=== PATIENT | male | born 1950 | race Caucasian/White ===

== ENCOUNTER → 2016-11-15 | Outpatient (CLI) | payer OTHER ==
[~2016-11-15] MED LIST: ASPI81TA28 PO; BRIM0.2S OPB; DICL50TA3 PO; IMDSR/30 PO; NTRGSL/4 UT; PRLSR20 PO; SIMV80TA2 PO
[2016-11-15 13:20] LABS: BASO % 0.1 %; BASO ABS # 0.02 K/uL (0-0.2); COMPLETE YES; EOS % 0.1 %; HEMATOCRIT 42.2 % (42-52); IG% 0.3 %; LYMPH % 4.8 %; LYMPH ABS # 0.65 K/uL (1.2-3.4); MEAN CELL VOLUME 95.5 fL (80-100); MEAN CORPUSCULAR HEMOGLOBIN 33.3 pg (25-34); MEAN CORPUSCULAR HGB CONC 34.8 g/dl (32-36); MEAN PLATELET VOLUME 11.3 fL (7.4-10.4); MONO % 4.8 %; NEUT % 89.9 %; PLATELET COUNT 226 K/uL (130-400); RED BLOOD COUNT 4.42 M/uL (4.7-6.1); WHITE BLOOD COUNT 13.43 K/uL (4.8-10.8)
[2016-11-15 13:25] LABS: BLOOD UREA NITROGEN 29 mg/dl (7-18); BUN/CREATININE RATIO 19.2 (10-20); CARBON DIOXIDE 24 mmol/L (21-32); CHLORIDE 100 mmol/L (98-107); GLUCOSE 113 mg/dl (70-99); POTASSIUM 3.5 mmol/L (3.5-5.1); SODIUM 135 mmol/L (136-145)
[2016-11-15 13:25] LABS: URINE APPEARANCE CLEAR (CLEAR); URINE COLOR ORANGE; URINE EPITHELIAL CELL AUTO >30 /lpf (0-5); URINE NITRITE POS (NEG); URINE SPECIFIC GRAVITY 1.026 (1.000-1.030); UROBILINOGEN NEG (NEG)
[2016-11-15 13:26] LABS: MANUAL MICROSCOPIC REQUIRED? NO; REVIEW REQ? YES
[2016-11-15 13:28] LABS: URINE BILIRUBIN NEG (NEG)
== END | disposition home or self-care (01) ==
LOC: C.LABPVFM 09:50
PROVIDERS: ATTEND Family Medicine
DX: K92.1 Melena (principal); R10.9 Unspecified abdominal pain

== ENCOUNTER → 2016-11-21 | Outpatient (CLI) | payer OTHER | END | disposition home or self-care (01) | LOC: C.LABPVFM 08:36 | PROVIDERS: ATTEND Family Medicine | DX: K92.1 Melena (principal); R10.9 Unspecified abdominal pain ==

== ENCOUNTER → 2017-01-12 | Outpatient (CLI) | payer OTHER ==
[2017-01-12 17:55] LABS: BLOOD UREA NITROGEN 23 mg/dl (7-18); BUN/CREATININE RATIO 23.1 (10-20); CALCIUM 8.7 mg/dl (8.5-10.1); CARBON DIOXIDE 25 mmol/L (21-32); CHLORIDE 107 mmol/L (98-107); GLUCOSE 93 mg/dl (70-99); POTASSIUM 4.2 mmol/L (3.5-5.1); SODIUM 141 mmol/L (136-145)
== END | disposition home or self-care (01) ==
LOC: C.LABPVFM 11:54
PROVIDERS: ATTEND Family Medicine
DX: R79.89 Other specified abnormal findings of blood chemistry (principal)

== ENCOUNTER → 2017-11-17 | Outpatient (CLI) | payer OTHER ==
[2017-11-17 12:31] LABS: BASO % 0.8 %; BASO ABS # 0.06 K/uL (0-0.2); EOS % 6.9 %; EOS ABS # 0.54 K/uL (0-0.5); HEMATOCRIT 45.4 % (42-52); HEMOGLOBIN 15.5 g/dL (14.0-18.0); IG# 0.01 K/uL (0.00-0.02); LYMPH % 21.8 %; LYMPH ABS # 1.72 K/uL (1.2-3.4); MEAN CELL VOLUME 98.5 fL (80-100); MEAN CORPUSCULAR HEMOGLOBIN 33.6 pg (25-34); MEAN CORPUSCULAR HGB CONC 34.1 g/dl (32-36); MEAN PLATELET VOLUME 10.5 fL (7.4-10.4); MONO ABS # 0.79 K/uL (0.11-0.59); NEUT % 60.4 %; NEUT ABS # 4.76 K/uL (1.4-6.5); PLATELET COUNT 235 K/uL (130-400); RED CELL DISTRIBUTION WIDTH CV 15.6 % (11.5-14.5); RED CELL DISTRIBUTION WIDTH SD 56.4 fL (36.4-46.3); WHITE BLOOD COUNT 7.88 K/uL (4.8-10.8)
[2017-11-17 16:20] LABS: ALBUMIN 3.9 gm/dl (3.4-5.0); ALT/SGPT 27 U/L (12-78); BLOOD UREA NITROGEN 23 mg/dl (7-18); CARBON DIOXIDE 28 mmol/L (21-32); CHOLESTEROL 124 mg/dl (0-200); CREATININE 1.09 mg/dl (0.60-1.40); GLUCOSE 107 mg/dl (70-99); POTASSIUM 4.6 mmol/L (3.5-5.1); SODIUM 138 mmol/L (136-145)
[2017-11-17 16:24] LABS: ALKALINE PHOSPHATASE 63 U/L (45-117); AST/SGOT 21 U/L (15-37); LDL CHOLESTEROL CALCULATED 58 mg/dl; TOTAL PROTEIN 7.4 gm/dl (6.4-8.2)
== END | disposition home or self-care (01) ==
LOC: C.LABPVFM 09:47
PROVIDERS: ATTEND Family Medicine
DX: D72.829 Elevated white blood cell count, unspecified (principal); Z72.0 Tobacco use; N20.0 Calculus of kidney; I25.10 Atherosclerotic heart disease of native coronary artery without angina pectoris; K21.9 Gastro-esophageal reflux disease without esophagitis; N39.0 Urinary tract infection, site not specified; R79.89 Other specified abnormal findings of blood chemistry

== ENCOUNTER → 2018-03-16 | Outpatient (CLI) | payer OTHER ==
[~2018-03-16] MED LIST changes: +OPTIRAY 320 IV PRN
--- NOTE | 2018-03-16 08:55 | DIAGNOSTIC IMAGING REPORT ---
CT (CHEST) THORAX WITH CLINICAL HISTORY: 68 years-old Male presenting with PAD, concern for right subclavian stenosis. TECHNIQUE: Multidetector CT imaging of the chest was performed without the use of intravenous contrast. IV contrast: 90 mL of Optiray 320. A dose lowering technique was used consistent with the principles of ALARA (as low as reasonably achievable). COMPARISON: None. CT DOSE (mGy.cm): The estimated cumulative dose is 378.51 mGycm. FINDINGS: Or Scrub Tech topogram: Unremarkable. On soft tissue windows, 10 mm hypodense nodule in the right lobe of thyroid. Few subcentimeter prominent precarinal lymph nodes likely reactive. Few prominent bilateral hilar lymph nodes, right greater than left. Atherosclerosis of the aorta. Three-vessel aortic arch with patent branch vessels. Specifically, the innominate and right subclavian arteries are patent. Normal heart size. Coronary artery calcification. No pericardial or pleural effusion. Hyperenhancing focus in the left hepatic lobe likely flash filling hemangioma. Prominent lobulations of the kidneys. On lung windows, mild apical predominant centrilobular emphysema. Lungs are hyperinflated. Pleural parenchymal scarring noted at the apices. Faint multifocal groundglass opacity in the posterior segment of the right upper lobe, which is primarily peribronchovascular. Mild bronchial wall thickening. Layering debris in the trachea. On bone windows, old fracture deformity of the posterior right 11th rib. IMPRESSION: 1. No evidence of right subclavian artery stenosis with the current arm positioning. Mild atherosclerosis without significant luminal narrowing. If there is clinical concern for thoracic outlet syndrome, a dedicated ultrasound examination with pulse volume recording to evaluate for this diagnosis could be obtained, which would include dynamic imaging with provocative maneuvers. 2. Emphysema and bronchial wall thickening, indicating smoking related lung injury. 3. Faint multifocal groundglass opacities in a peribronchovascular distribution in the posterior segment of the right upper lobe. This could relate represent atypical appearing respiratory bronchiolitis although a developing infection is difficult to exclude. Absence of symptoms, consider follow-up chest CT in 3 months. Electronically signed by: Tr Eldridge M.D. 03/16/2018 8:54 AM Dictated Date/Time: 03/16/2018 8:45 AM
== END | disposition home or self-care (01) ==
LOC: C.CTS 08:11
PROVIDERS: ATTEND Internal Medicine Interventional Cardiology
DX: I73.9 Peripheral vascular disease, unspecified (principal)

== ENCOUNTER 2021-02-12 05:55 | Inpatient (IN) ==
--- NOTE | 2021-01-29 10:50 | PAT Medication Instructions ---
Medication Instructions Date of Service January 29, 2021 Home Medications Medication Instructions Recorded isosorbide mononitrate 30 mg 30 mg PO DAILY #90 tab 03/16/20 tablet,extended release 24 hr omeprazole 40 mg capsule,delayed 40 mg PO DAILY #90 cap 11/23/20 release lorazepam 0.5 mg tablet 0.5 mg PO DAILY PRN #14 tab 11/27/20 diclofenac sodium 50 mg 50 mg PO BID #180 tab 12/17/20 tablet,delayed release simvastatin 80 mg tablet 80 mg PO DAILY #90 tab 12/17/20 ferrous sulfate 142 mg (45 mg iron) tablet,extended release 142 mg PO QAM aspirin 81 mg tablet 81 mg PO QAM nitroglycerin 0.4 mg sublingual tablet 0.4 mg SL Q5M PRN isosorbide mononitrate 30 mg tablet,extended release 24 hr 30 mg PO DAILY omeprazole 40 mg capsule,delayed release 40 mg PO DAILY lorazepam 0.5 mg tablet 0.5 mg PO DAILY PRN diclofenac sodium 50 mg tablet,delayed release 50 mg PO BID simvastatin 80 mg tablet 80 mg PO DAILY oxycodone-acetaminophen 5 mg-325 mg tablet 1 tab PO QID PRN Continue as directed nitroglycerin 0.4 mg sublingual tablet 0.4 mg SL Q5M PRN ASK your surgeon for instructions aspirin 81 mg tablet 81 mg PO QAM diclofenac sodium 50 mg tablet,delayed release 50 mg PO BID DO NOT take the morning of surgery ferrous sulfate 142 mg (45 mg iron) tablet,extended release 142 mg PO QAM Take morning of surgery With a small sip of water, OTHERWISE NOTHING TO EAT OR DRINK AFTER MIDNIGHT: isosorbide mononitrate 30 mg tablet,extended release 24 hr 30 mg PO DAILY omeprazole 40 mg capsule,delayed release 40 mg PO DAILY lorazepam 0.5 mg tablet 0.5 mg PO DAILY PRN (if needed) oxycodone-acetaminophen 5 mg-325 mg tablet 1 tab PO QID PRN (if needed, may be taken up to four hours before surgery) simvastatin 80 mg tablet 80 mg PO DAILY *Meds listed as DAILY are assumed to be taken in the morning. If this is incorrect, please take at your normally scheduled time and do not take and extra morning dose. Take evening before surgery lorazepam 0.5 mg tablet 0.5 mg PO DAILY PRN (if needed) oxycodone-acetaminophen 5 mg-325 mg tablet 1 tab PO QID PRN (if needed) Other Notes If you have any questions please call us at [phone] or [phone] or [phone] or [phone]
--- NOTE | 2021-01-30 09:57 | Anesthesiology Consultation ---
Date of Service January 30, 2021 Assessment & Plan (1) Encounter for pre-operative examination: Chart Review Chart Review: Pending: Refer to Additional Notes / Consult section (pending surgeon ordered cardio clearance 02/06, possible vascular note, and preop Covid testing ) and Patient seen in Pre Admission Testing Awaiting surgeon ordered cardio clearance scheduled 02/06/21. Will also attempt to get most recent vascular note. Per PAT appt on 01/30/21, patient denies any out of state travel. No known Covid positive contacts or Covid related symptoms. No known Covid test in the past 90 days. Educated patient to follow up with surgeon's office regarding Covid testing. Educated on importance of self quarantining, social distancing and wearing mask in public both for the patient and household contacts. Per PCP office visit 11/27/20= pt presents for routine follow up and [facility] visit. PAD- stable- follows with vascular. Hyperlipidemia- continue statin/stable. GERD- stable- stable. Chronic low back pain- takes Diclofenac. CAD- stable. Addendum to PCP note on 01/28/21= "Pt is medically optimized ("cleared") for their upcoming procedure. Pt is having a preop visit with cardio coming up as well." Teaching & Discussion Pre-Anesthesia Teaching/Discussion Notes: Instructed NPO after midnight before surgery,except medications with 15 cc of water. Medication instructions provided according to the PAT guidelines. History Surgery Operation Date: 02/12/21 08:50 Proposed Procedures p Laparoscopic Robotic Assisted Radical Retropubic Prostatectomy, Possible Open Possible Pelvic Lymphnode Dissection, Possible Suprapubic Tube Placment - Miko Valderrama MD Height/Weight Height: 5 ft 10 in Weight: 60.7 kg Allergies Allergy/AdvReac Type Severity Reaction Status Date / Time Sulfa (Sulfonamide Allergy Intermediate RASH/HIVES Verified 01/29/21 09:22 Antibiotics) codeine AdvReac Mild UPSETS Verified 01/29/21 09:22 STOMACH - NAUSEA wool AdvReac Mild ITCHING Verified 01/29/21 09:22 Medications Home Medications Medication Instructions Recorded Confirmed Last Taken ferrous sulfate 142 mg (45 mg 142 mg PO QAM tab 05/14/19 01/29/21 08/02/20 05:30 iron) tablet,extended release aspirin 81 mg tablet 81 mg PO QAM tab 09/27/19 01/29/21 08/03/20 04:30 nitroglycerin 0.4 mg sublingual 0.4 mg SL Q5M PRN #25 tab 09/27/19 01/29/21 Unknown tablet isosorbide mononitrate 30 mg 30 mg PO DAILY #90 tab 03/16/20 01/29/21 08/03/20 04:30 tablet,extended release 24 hr omeprazole 40 mg capsule,delayed 40 mg PO DAILY #90 cap 11/23/20 01/29/21 Unknown release lorazepam 0.5 mg tablet 0.5 mg PO DAILY PRN #14 tab 11/27/20 01/29/21 Unknown diclofenac sodium 50 mg 50 mg PO BID #180 tab 12/17/20 01/29/21 Unknown tablet,delayed release simvastatin 80 mg tablet 80 mg PO DAILY #90 tab 12/17/20 01/29/21 Unknown oxycodone-acetaminophen 5 mg-325 1 tab PO QID PRN 01/23/21 01/29/21 Unknown mg tablet Past Medical History Medical History AAA (abdominal aortic aneurysm) S/p bypass around 2001 CAD (coronary artery disease) Moderate RCA disease per 2013 cardiac cath GERD (gastroesophageal reflux disease) Well controlled and stable History of depression History of kidney stones No current issues History of melanoma S/p Mohns surgery Hx of glaucoma No current issues - follows with eye doctor Hyperlipidemia Hypertension PAD (peripheral artery disease) Aorta to right femoral and left external iliac bypass S/p stenting of left external iliac artery in the past Left external iliac artery angioplasty 08/03/20 Known severe bilateral SFA disease--[place] class 2-3 claudication symptoms, moderate arterial insufficiency by ADRIENNE; followed by Dr. Proctor Prostate cancer Spinal stenosis Chronic low back pain Exercise / Class Metabolic Activity II 4-5 Yardwork/Stairs/Walk up hill (one flight of stairs - no chest pain or SOB ) Past Family History Family History Family/Other Cancer Father Diabetes Cancer Brain tumor Hypertension Daughter No problems noted. Mother Lupus Albino Other No family history of adverse response to anesthesia Denies family history of Ovarian cancer Prostate cancer Crohn's disease Myocardial infarction Breast cancer Colorectal cancer Past Surgical History Surgical History (Updated 01/30/21 @ 15:51 by Mercy Bernal PA-C) H/O prostate biopsy H/O vascular surgery Left External Iliac Artery Angioplasty History of abdominal aortic aneurysm repair Aorta to right femoral and left external iliac bypass 15 YEAR AGO AT [facility] History of cataract surgery RT/LEFT History of colonoscopy History of cystoscopy For urethral stricture History of Mohs micrographic surgery for skin cancer FACIAL AREA History of surgical procedure on eye proper using laser RT/LEFT (TO TREAT GLAUCOMA) History of tooth extraction S/P insertion of iliac artery stent ? 10 YEARS AGO AT [place] Past Anesthesia History No Hx of Anesthesia Complications and No Family Hx of Anesthesia Complications History of PONV No Hx of PONV and No Hx of Motion Sickness Social History Smoking Status: Current every day smoker tobacco type: cigarettes Smoking cigarettes per day: 10 CIG DAILY Do You Dip or Chew Tobacco: No Hx Alcohol Use: Yes Alcohol type: beer alcohol intake frequency: a few times a week Hx Substance Use: Yes substance use type: marijuana Last Used Substance Other:: 1 MONTH AGO (LAST USED>ADVISED) Review of Systems Patient denies chest pain, shortness of breath, dyspnea on exertion, cough, wheezing, palpitations. No hx of seizures, stroke, MT, apnea/snoring. No hx of blood clots or blood transfusions Physical Exam Vital Signs VITALS BP 131/81 P 71 TEMP 98.1 SP02 96% RESP 16 Constitutional no acute distress ENMT Mouth: no TMJ clicking Thyromental Distance: > or= 3.5 Finger Breadths (4.0) Mallampati Class: I Full dentures top and bottom Neck neck extension not limited Respiratory normal respiratory effort; no respiratory distress Auscultation: lungs clear to auscultation bilaterally; no wheezes Cardiovascular Rate/Rhythm: regular rate and regular rhythm Heart Sounds: no murmur Vessels: no carotid bruit Musculoskeletal Spine: no pain with cervical ROM Extremities: extremities normal to inspection Psychiatric Orientation: alert Testing Laboratory Results 01/30/21 10:22 01/30/21 10:22 Blood Type O Positive 01/30/21 10:22 Antibody Screen NEGATIVE 01/30/21 10:22 Electrocardiogram Date: 01/30/21 Sinus rhythm with sinus arrhythmia with first-degree block at 63 bpm. Otherwise normal EKG. Compared to EKG from 2/19/2014no significant changes found per cardio. Chest X-Ray Date: 01/30/21 Findings: + NAD FINDINGS: The lungs remain hyperexpanded with apical predominant emphysematous changes. The heart is normal in size. No pleural effusions. No pneumothorax. No focal lung consolidations to suggest pneumonia. No evidence for pulmonary edema. IMPRESSION: No significant change compared to the prior study. No acute process. Emphysema. Stress Test Date: 07/19/20 Type: nuclear No significant ischemia suggested on myocardial perfusion imaging. Small distal anteroseptal fixed defect may represent artifact given normal wall motion, but cannot exclude infarct. Normal LV systolic function and wall motion. EF 69%. Nondiagnostic Lexiscan ECG. Other Testing Chest CT 12/19/20= Pulmonary emphysema. Mucous debris within the trachea the level the gil. New 2 mm right upper lobe pulmonary nodule. Persistent subtle ground glass attenuation and micronodularity within the right upper lobe lung likely postinflammatory. No suspicious pulmonary findings. Aorta with Runoff CTA 01/25/20= Redemonstration of the aortobiiliac stent graft repair of an abdominal aortic aneurysm. No evidence for endoleak. The aneurysm sac is stable in size measuring up to 2.3 cm in diameter. Focal occlusion within the bilateral mid to distal superficial femoral arteries with distal reconstitution. Focal high-grade stenosis at the proximal left anterior tibial artery. Suggestion of a three-vessel runoff within the right lower extremity. Bilateral nephrolithiasis. 1 cm hypervascular focus within the left hepatic lobe. This remains stable and favors a flash filling hemangioma.
--- NOTE | 2021-01-30 11:08 | XRay Report ---
XR chest Pre-admission PA/Lat HISTORY: Preop. COMPARISON: Chest 11/29/2013. FINDINGS: The lungs remain hyperexpanded with apical predominant emphysematous changes. The heart is normal in size. No pleural effusions. No pneumothorax. No focal lung consolidations to suggest pneumo pascual. No evidence for pulmonary edema. IMPRESSION: No significant change compared to the prior study. No acute process. Emphysema. ACT 112: Negative or not required by law. Electronically signed by: Tomas Wang M.D. 01/30/2021 11:07 AM
[2021-01-30 11:43] LABS: Basophils # (auto) 0.02 K/uL (0-0.2); Basophils % (auto) 0.3 %; Eosinophils # (auto) 0.13 K/uL (0-0.5); Eosinophils % (auto) 2.2 %; Hematocrit (blood only) 43.6 % (42-52); Hemoglobin 14.7 g/dL (14.0-18.0); Immature Granulocytes # (auto) 0.02 K/uL (0.00-0.02); Immature Granulocytes % (auto) 0.3 %; Lymphocytes % (auto) 19.9 %; Mean Corpuscular Hemoglobin 33.5 pg (25-34); Mean Corpuscular Hgb Conc 33.7 g/dL (32-36); Mean Corpuscular Volume 99.3 fL (80-100); Mean Platelet Volume 10.3 fL (7.4-10.4); Monocytes % (auto) 8.3 %; Neutrophils # (auto) 4.17 K/uL (1.4-6.5); Platelet Count 203 K/uL (130-400); RDW Coefficient of Variation 15.4 % (11.5-14.5); RDW Standard Deviation 56.6 fL (36.4-46.3); Red Blood Count 4.39 M/uL (4.7-6.1); White Blood Count 6.04 K/uL (4.8-10.8)
[2021-01-30 12:49] LABS: Calcium 8.9 mg/dl (8.5-10.1); Creatinine Clr Calc Pharmacy 62.1 ml/min; Est GFR (African American) 96.6; Est GFR (Non-African American) 83.3; Potassium 4.6 mmol/L (3.5-5.1)
--- NOTE | 2021-01-30 13:52 | Electrocardiogram Report ---
Test Reason : Blood Pressure : / mmHG Vent. Rate : 063 BPM Atrial Rate : 063 BPM P-R Int : 212 ms QRS Dur : 090 ms QT Int : 380 ms P-R-T Axes : 084 087 081 degrees QTc Int : 388 ms Sinus rhythm with sinus arrhythmia with 1st degree A-V block Otherwise normal ECG When compared with ECG of 27-APR-2014 08:38, No significant change was found Confirmed by Johnnie Cuevas ([id number]) on 01/30/2021 1:51:45 PM Referred By: Miko Valderrama Confirmed By:Kash Cuevas
[2021-02-12] MEDS ORDERED: LR 15ML/HR IV SCH ×2 (06:00)
[2021-02-12] MEDS ORDERED: HEPARIN SOD 5,000 UNIT/0.5 ML VIAL SQ SCH (06:00)
[2021-02-12] MEDS ORDERED: HYDROmorphone INJ 1 MG/ML SYRINGE IV PRN (06:38)
[2021-02-12] MEDS ORDERED: ePHEDrine sulfate 50 MG/ML AMP IV PRN (06:38)
[2021-02-12] MEDS ORDERED: ATROPINE SULFATE 0.1 MG/ML 10ML SYR IV PRN (06:38)
[2021-02-12] MEDS ORDERED: ONDANSETRON INJ 2 MG/ML 2 ML VIAL IV PRN (06:38)
[2021-02-12] MEDS ORDERED: ONDANSETRON INJ 2 MG/ML 2 ML VIAL ONE (06:41)
[2021-02-12] MEDS ORDERED: ROCURONIUM BROMIDE 10 MG/ML 5 ML VIAL IV ONE ×5 (06:41→10:25)
[2021-02-12] MEDS ORDERED: PROPOFOL IV EMULSION 10 MG/ML 20 ML VIAL IV ONE (06:41)
[2021-02-12] MEDS ORDERED: MIDAZOLAM HCL 1 MG/ML 2ML VIAL ONE (06:41)
[2021-02-12] MEDS ORDERED: LIDOCAINE 2% 2 ML VIAL/AMP(20MG/ML) INFIL ONE (06:41)
[2021-02-12] MEDS ORDERED: fentaNYL citrate 100 MCG/2 ML VIAL ONE ×2 (06:41→08:30)
[2021-02-12] MEDS ORDERED: DEXAMETHASONE SOD INJ 4 MG/ML VIAL ONE (06:41)
[2021-02-12] MEDS ORDERED: NEOSTIGMINE METHYLSULFATE 5 MG/5 ML SYR ONE (06:42)
[2021-02-12] MEDS ORDERED: GLYCOPYRROLATE 0.2 MG/ML VIAL ONE ×2 (06:42→10:25)
[2021-02-12] MEDS ORDERED: ASPIRIN 81 MG ECTAB PO STA (07:17)
--- NOTE | 2021-02-12 07:18 | History & Physical Bridge Note ---
Date of Service February 12, 2021 History & Physical Bridge Note I have examined the patient, reviewed the History & Physical and in the interval since the performance of the History & Physical I have noted the following changes of clinical significance: no changes noted
[2021-02-12] MEDS ORDERED: ASPIRIN 81 MG CHEW PO ONE (07:21)
[2021-02-12] MEDS ORDERED: BUPIVACAINE 0.5 % 5 MG/1 ML MPF 30ML VIAL ONE (07:21)
--- NOTE | 2021-02-12 07:26 | History & Physical Report ---
Date of Service February 12, 2021 Assessment & Plan (1) Prostate cancer: Prostate Cancer - extensive vascular disease - very understanding of his particular risks and the potential consequences of complications from this surgery - ASA 81mg to be given now - heparin 5000 Units given now - plan for robotic prostatectomy History of Present Illness Primary Care Provider: Nitza Baca MD 71y/o male w/ prostate cancer as well as an extensive hx of PVD - presenting today for prostatectomy - he feels well - we have discussed his particular risks at length - we also discussed the potential that abdominal scarring could preclude the ability to complete the surgery - he is very understanding and anxious to move forward Allergies Allergy/AdvReac Type Severity Reaction Status Date / Time Sulfa (Sulfonamide Allergy Intermediate RASH/HIVES Verified 02/12/21 06:27 Antibiotics) codeine AdvReac Mild UPSETS Verified 02/12/21 06:27 STOMACH - NAUSEA wool AdvReac Mild ITCHING Verified 02/12/21 06:27 Home Medications Medication Instructions Recorded Confirmed Type ferrous sulfate 142 mg (45 mg 142 mg PO QAM tab 05/14/19 02/12/21 History iron) tablet,extended release aspirin 81 mg tablet 81 mg PO QAM tab 09/27/19 02/12/21 History nitroglycerin 0.4 mg sublingual 0.4 mg SL Q5M PRN #25 tab 09/27/19 02/06/21 History tablet isosorbide mononitrate 30 mg 30 mg PO DAILY #90 tab 03/16/20 02/12/21 Rx tablet,extended release 24 hr omeprazole 40 mg capsule,delayed 40 mg PO DAILY #90 cap 11/23/20 02/12/21 Rx release lorazepam 0.5 mg tablet 0.5 mg PO DAILY PRN #14 tab 11/27/20 02/12/21 Rx diclofenac sodium 50 mg 50 mg PO BID #180 tab 12/17/20 02/12/21 Rx tablet,delayed release simvastatin 80 mg tablet 80 mg PO DAILY #90 tab 12/17/20 02/12/21 Rx oxycodone-acetaminophen 5 mg-325 1 tab PO QID PRN 01/23/21 02/12/21 History mg tablet Past Med/Surg History Medical History AAA (abdominal aortic aneurysm) S/p bypass around 2001 CAD (coronary artery disease) Moderate RCA disease per 2013 cardiac cath GERD (gastroesophageal reflux disease) Well controlled and stable History of depression History of kidney stones No current issues History of melanoma S/p Mohns surgery Hx of glaucoma No current issues - follows with eye doctor Hyperlipidemia Hypertension PAD (peripheral artery disease) Aorta to right femoral and left external iliac bypass S/p stenting of left external iliac artery in the past Left external iliac artery angioplasty 08/03/20 Known severe bilateral SFA disease--[place] class 2-3 claudication symptoms, moderate arterial insufficiency by ADRIENNE; followed by Dr. Proctor Prostate cancer Spinal stenosis Chronic low back pain Surgical History H/O prostate biopsy H/O vascular surgery Left External Iliac Artery Angioplasty [place] History of abdominal aortic aneurysm repair Aorta to right femoral and left external iliac bypass 15 YEAR AGO AT [facility] History of cataract surgery RT/LEFT History of colonoscopy History of cystoscopy For urethral stricture History of Mohs micrographic surgery for skin cancer FACIAL AREA History of surgical procedure on eye proper using laser RT/LEFT (TO TREAT GLAUCOMA) History of tooth extraction S/P insertion of iliac artery stent ? 10 YEARS AGO AT [place] Family History Family/Other Cancer Father Diabetes Cancer Brain tumor Hypertension Daughter No problems noted. Mother Lupus Albino Other No family history of adverse response to anesthesia Denies family history of Ovarian cancer Prostate cancer Crohn's disease Myocardial infarction Breast cancer Colorectal cancer Social History Smoking Status: Current every day smoker Tobacco Type: Cigarettes Years Smoked: 57; Cigarettes Per Day: 10 CIG DAILY; Second Hand Exposure: No; Do You Dip or Chew Tobacco: No; Tobacco Cessation Education Requested by Patient: No Hx Alcohol Use: Yes Alcohol type: beer Alcohol Intake Frequency: 2-3 x/Week Hx Substance Use: Yes Last Used Substance Other:: 1 MONTH AGO (LAST USED>ADVISED) Preferred Language: Belarusian Communication Ability: Effective Hearing Ability: Normal Magnetic Resonance Imaging Coordinator Required: No Beliefs That Will Affect Care: None marital status: Current Living Situation: Alone current occupational status: retired Feels Safe at Home: Yes Safety Concerns: Feels Safe At This Time caffeine: Yes (coffee) Dental Care, Regularly: No Physical Activity Frequency: Daily Seatbelt Use: sometimes Sunscreen Use: Yes Assistive Devices: Denture - Upper, Denture - Lower and Glasses Physical Exam Physical Exam: midline incision to nearly the pubic symphisis Constitutional: well developed and well nourished Neck: neck nontender Respiratory: normal respiratory effort; no respiratory distress and does not use accessory muscles Cardiovascular: Rate/Rhythm: regular rate Vessels: radial pulses present Extremities: no edema Gastrointestinal (Abdomen): Inspection/Auscultation: abdomen normal to inspection Percussion/Palpation: abdomen soft; abdomen nontender and no guarding Musculoskeletal: Head/Neck/Chest: normocephalic and head atraumatic Extremities: extremities normal to inspection Skin: no rashes and no lesions Trauma: no evidence of skin trauma Neurologic: awake; not obtunded Speech / Cognition: normal speech Motor/Sensory: no tremor Psychiatric: Orientation: alert and oriented x 3 Genitourinary: no CVA tenderness Lymphatic: no lymphadenopathy Results & Data ([facility]) Vital Signs (Past 12 Hours) Vital Signs Temp Pulse Resp BP Pulse Ox 02/12/21 06:30 36.4 C L 85 20 119/95 98
[2021-02-12] MEDS ORDERED: SUGAMMADEX SODIUM 200 MG/2 ML VIAL IV ONE (07:52)
[2021-02-12] MEDS ORDERED: BELLADONNA/OPIUM SUPP 60 MG SUPP PR ONE ×2 (07:58→08:48)
[2021-02-12] MEDS ORDERED: PHENYLEPHRINE HCL 10 MG/ML VIAL ONE (10:25)
[2021-02-12] MEDS ORDERED: PHENYLEPHRINE 100MCG/ML 5ML SYR ONE (10:25)
--- NOTE | 2021-02-12 11:19 | XRay Report ---
XR pelvis 1-2V routine CLINICAL HISTORY: Lost Needle COMPARISON: CTA of January 25, 2020. FINDINGS: 5 radiographs of the pelvis were obtained. Camacho balloon is noted. There is extraluminal g as which is expected. Multiple ports are noted. There is a left iliac stent. The first 4 images demon strate a curvilinear metallic density projecting over the left lower quadrant consistent with a needl e. This is not evident on the final image obtained at 10:49 following removal. IMPRESSION: Radiographs of the pelvis demonstrating removal of a needle projecting over the left lowe r quadrant. ACT 112: Negative or not required by law. Electronically signed by: Suresh Guerrero M.D. 02/12/2021 11:18 AM
[2021-02-12] MEDS: fentaNYL citrate 100 MCG/2 ML VIAL IV PRN ×4 (11:37→11:52)
--- NOTE | 2021-02-12 11:46 | Operative Report ---
PG Post Operative Report Pre & Post Diagnosis Operation Date: 02/12/21 07:30 Pre-Op Diagnosis: Prostate Cancer Post-Op Diagnosis: Prostate Cancer I identified the patient and participated in the time-out.: Yes Procedure Operation Date: 02/12/21 07:30 Actual Procedures p Laparoscopic Robotic Assisted Prostatectomy, Urethral dilation, and Extensive Lysis of Adhesions(Not Applicable) - Miko Valderrama MD Surgeon Johnnie Valderrama MD Carriage Feeder Lyn Vieira Estimated Blood Loss 100 Findings Consistent with Post-Op Diagnosis Specimens 1. Periprostatic fat 2. Prostate and seminal vesicles Description of Procedure The patient was identified in the preoperative holding area, appropriate informed consents were reviewed and completed, and he was transported to the operating suite. Subcutaneous heparin was administered in the pre-operative holding area. Upon arrival in the operating suite, he received appropriate antibiotics and general anesthesia. He was positioned in dorsal lithotomy, a B&O suppository was inserted after digital rectal exam, and he was prepped and draped in standard fashion. Initial effort to place a Camacho catheter on the field was met with resistance. I subsequently placed a 5 Pakistani open-ended catheter into his bladder and advanced a wire into the bladder. S-curve Joel style dilators were utilized to dilate him to 22 Pakistani. I then placed an 18 Pakistani cahuilla tip catheter with a return of clear urine. A Veress needle was passed into the right upper quadrant with subsequent uniform insufflation of the abdomen to 15mmHg. This location was chosen because of his prior abdominal surgery. I then placed the 5mm greenhouse assistant port with the visual obturator. The right hemiabdomen was relatively clear of adhesions, but there was significant adhesive disease throughout the pelvis, midline, and left lexie abdomen. The 12mm greenhouse assistant port the and the right sided robotic ports were placed. I utilized these ports and a cold scissor to carefully work our way through his adhesions and free the abdominal wall to accommodate the other ports. In total I would estimate 30 to 40 minutes of lysis of adhesions. After confirming a clear anterior abdominal wall, ports were subsequently placed in standard robotic prostatectomy fashion without incident. The robot was subs equently docked after the patient was placed in steep Trendelenburg. To begin the robotic portion of the case, the left lateral aspect of the sigmoid was mobilized off of the left pelvic side wall to allow the pouch of Ramakrishna to be appropriately visualized. Last remaining anterior adhesions were freed. I then made an incision in the pouch of Ramakrishna, overlying the seminal vesicles. Both SVs as well as the ampullae of the vasa were entirely dissected, with the vasa transected 3cm from the prostate. The medial umbilical ligaments were then controlled with bipolar electrocautery just inferior to the umbilicus. Following cauterization, they were divided utilizing monopolar cautery. A peritoneal incision was carried from this location to the medial aspect of the internal inguinal rings bilaterally with care to avoid opening through the ring. This incision was concluded when the vas deferens was reached. Dissection of the bladder and prostate off of the posterior aspect of the pubic arch was completed allowing full visualization of the prostate. The fat overlying the prostate was removed en bloc and passed off the table as a specimen labeled "periprostatic fat". The endopelvic fascia was cleared during this portion of the procedure, and subsequently opened - first on the right and then the left. The incision through the endopelvic fascia began near the prostate-bladder junction and was carried to the apex with extreme care to preserve all lateral levator musculature as well as the periurethral musculature and sphincter complex. I additionally preserved the puboprostatic ligaments. I then controlled the DVC with a 3-0 V-lock suture in overlapping/figure of 8 fashion. Given his extensive prior vascular surgery, I elected to avoid a lymph node dissection and avoid dissection near his vascular structures. My attention then returned to the prostate, with identification of the bladder neck aided by gentle traction on the Camacho catheter and lateral to medial pr essure at the presumed level of the bladder neck with the robotic instruments. An anterior cystotomy was made, the Camacho balloon deflated and the catheter guided through the incision to allow anterior retraction. I attempted to preserve maximal bladder neck musculature as I circumferentially dissected around the bladder neck. After incision through the posterior aspect of the mucosa, the dissection was carried through detrusor muscle until the bilateral ampullae of the vasa were identified. The previously dissected vasa and SVs were brought through the incision and used to elevated the prostate anteriorly. A posterior plane behind the prostate was then developed - splitting Denonvilliers's fascia. This dissection was carried as far as possible towards the apex as well as far as possible laterally. An incision in the lateral prostatic fascia was then made bilaterally to facilitate control of the vascular pedicles and preservation of the nerve bundles. Vasculature running along the posterior/lateral aspect of the prostate was preserved as well as the tissue containing the nerves. The pedicles were then controlled with a series of Weck clips. The apical attachments of the prostate were remaining at that stage. The DVC was divided after control with bipolar cautery over the prostate. Continuous inspection from anterior and lateral views allowed me to closely follow the apical contour of the prostate and maximally preserve urethral length and tissue. The prostate was entirely freed at that point, and collected in an EndoCatch bag before being moved out of the field of vision. Hemostasis was confirmed and anastomosis of the bladder and urethra was completed utilizing a double armed V- Lock stitch. Given his prior stricture dilation, we elected to utilize the same cahuilla tip catheter and avoid withdrawing it entirely. This was repositioned back into the bladder and the anastomosis was tested by filling the bladder with 120 cc of normal saline. There is no evidence of leak. FloSeal was placed around the anastomosis. Unfortunately at that time we are passing needles out of the abdomen and one was misplaced. We searched through the abdominal cavity and did not identify the suture. I did identify a small enterotomy which was oversewn with [id number] 3 OV lock suture. There is no evidence of persistent leak, etc. I obtained an x-ray to help with identification of the stitch. It was found in the left lateral aspect of the abdomen and utilizing 2 additional x-rays and intra-abdominal instruments were able to identify and find the suture and remove it. I did take one final x-ray to confirm needle free abdomen. The robot was undocked, the specimen extracted through expansion of the demetri- umbilical camera port. The fascia was closed with a 0-Vicryl suture. 4-o Monocryl was used to close all other skin incisions. All wounds were dressed with Dermabond. The case was concluded and the patient taken to the PACU in stable condition. Lyn Vieira was present and scrubbed from incision to closure. I attest to the content of the Intraoperative Record and any orders documented therein. Any exceptions are noted below.
[2021-02-12] MEDS ORDERED: ACETAMINOPHEN 325 MG TAB PO PRN (12:51)
[2021-02-12] MEDS ORDERED: NITROGLYCERIN SL 0.4 MG/TAB TAB SL PRN (12:51)
[2021-02-12] MEDS: LACTATED RINGER'S 1,000 ML IV SCH ×2 (13:14→23:00)
[2021-02-12 13:54] LABS: Basophils # (auto) 0.01 K/uL (0-0.2); Basophils % (auto) 0.1 %; Eosinophils # (auto) 0.01 K/uL (0-0.5); Eosinophils % (auto) 0.1 %; Hematocrit (blood only) 38.9 % (42-52); Hemoglobin 13.1 g/dL (14.0-18.0); Immature Granulocytes # (auto) 0.04 K/uL (0.00-0.02); Immature Granulocytes % (auto) 0.3 %; Lymphocytes # (auto) 0.56 K/uL (1.2-3.4); Lymphocytes % (auto) 4.1 %; Mean Corpuscular Hemoglobin 33.5 pg (25-34); Mean Corpuscular Volume 99.5 fL (80-100); Monocytes # (auto) 0.51 K/uL (0.11-0.59); Monocytes % (auto) 3.8 %; Neutrophils # (auto) 12.47 K/uL (1.4-6.5); Neutrophils % (auto) 91.6 %; Platelet Count 190 K/uL (130-400); RDW Coefficient of Variation 15.5 % (11.5-14.5); RDW Standard Deviation 56.4 fL (36.4-46.3); Red Blood Count 3.91 M/uL (4.7-6.1)
[2021-02-12 14:15] LABS: BUN Creatinine Ratio 19.6 (10-20); Calcium 8.1 mg/dl (8.5-10.1); Creatinine Clr Calc Pharmacy 45.3 ml/min; Est GFR (African American) 70.5; Est GFR (Non-African American) 60.9; Potassium 4.5 mmol/L (3.5-5.1)
[2021-02-12 14:32] LABS: Mean Corpuscular Hgb Conc 33.7 g/dL (32-36)
--- NOTE | 2021-02-12 15:55 | Anesthesiology Progress Note ---
Date of Service February 12, 2021 Anesthesia Post Procedure Vital Signs Vital Signs: Temp Pulse Pulse Resp BP BP Pulse Ox 02/12/21 15:48 36.6 C 84 18 107/67 97 02/12/21 14:38 36.7 C 89 16 110/67 97 02/12/21 13:35 36.8 C 72 16 100/64 95 02/12/21 13:05 36.6 C 69 16 118/88 96 02/12/21 12:35 36.5 C 83 16 100/62 95 02/12/21 12:20 36.4 C L 90 14 116/57 L 98 02/12/21 12:10 36.4 C L 85 14 124/67 96 02/12/21 12:00 79 14 110/60 95 02/12/21 11:50 78 14 125/58 L 96 02/12/21 11:40 80 14 124/67 96 02/12/21 11:31 36.4 C L 83 138/79 96 02/12/21 06:30 36.4 C L 85 20 119/95 98 Pain Intensity Abdomen: Pain Intensity: 6 Transfer of Care Handoff Completed per policy Notes Mental Status: alert / awake / arousable and participated in evaluation Patient Amnestic to Procedure: Yes Nausea / Vomiting: adequately controlled Pain: adequately controlled Airway Patency, RR, SpO2: stable & adequate BP & HR: stable & adequate Hydration State: stable & adequate Anesthetic Complications: no major complications apparent and Pt Satisfied with anesthetic care
[2021-02-12] MEDS: ceFAZolin 2000MG 2,000 MG/15 ML SYR IV SCH ×2 (16:05→23:06)
[2021-02-12] MEDS: oxyCODONE HCL IR 5 MG TAB (IMMEDIATE RELEASE) PO PRN (19:51)
[2021-02-12] MEDS: HEPARIN SOD 5,000 UNIT/0.5 ML VIAL SQ SCH (20:26)
[2021-02-13] MEDS: oxyCODONE HCL IR 5 MG TAB (IMMEDIATE RELEASE) PO PRN ×4 (00:11→17:02)
[2021-02-13 06:15] LABS: Basophils # (auto) 0.01 K/uL (0-0.2); Basophils % (auto) 0.1 %; Eosinophils # (auto) 0.01 K/uL (0-0.5); Eosinophils % (auto) 0.1 %; Hematocrit (blood only) 36.1 % (42-52); Hemoglobin 12.1 g/dL (14.0-18.0); Immature Granulocytes # (auto) 0.02 K/uL (0.00-0.02); Immature Granulocytes % (auto) 0.2 %; Lymphocytes # (auto) 0.96 K/uL (1.2-3.4); Lymphocytes % (auto) 9.3 %; Mean Corpuscular Hemoglobin 33.1 pg (25-34); Mean Corpuscular Hgb Conc 33.5 g/dL (32-36); Mean Corpuscular Volume 98.6 fL (80-100); Mean Platelet Volume 10.3 fL (7.4-10.4); Monocytes # (auto) 0.79 K/uL (0.11-0.59); Monocytes % (auto) 7.7 %; Neutrophils # (auto) 8.52 K/uL (1.4-6.5); Neutrophils % (auto) 82.6 %; Platelet Count 174 K/uL (130-400); RDW Coefficient of Variation 15.4 % (11.5-14.5); RDW Standard Deviation 55.4 fL (36.4-46.3); Red Blood Count 3.66 M/uL (4.7-6.1); White Blood Count 10.31 K/uL (4.8-10.8)
[2021-02-13 06:52] LABS: Calcium 8.2 mg/dl (8.5-10.1); Creatinine Clr Calc Pharmacy 56.8 ml/min; Est GFR (African American) 92.9; Est GFR (Non-African American) 80.1; Potassium 4.8 mmol/L (3.5-5.1)
--- NOTE | 2021-02-13 08:24 | Urology Progress Note ---
Date of Service February 13, 2021 Assessment & Plan (1) Prostate cancer: POD #1 s/p RALP - doing well - severe PVD - trial of clear liquids this AM - hope he will be ready for d/c home tomorrow Admission and Anticipated Discharge Date Admission Date: February 12, 2021 Subjective Doing well today mild pain ambulated tolerating ice chips - no full diet offered yet,but no nausea, etc Physical Exam Physical Exam: incisions appropriate some edema of the groin and penis - expected urine clear Results & Data ([facility]) Vital Signs (Past 12 Hours) Vital Signs Temp Pulse Resp BP Pulse Ox 02/13/21 07:26 36.8 C 73 16 105/58 L 93 02/13/21 04:54 37.0 C 66 18 112/65 93 02/12/21 22:11 37 C 80 16 112/68 91 PG Care Time/CCT Total # of Minutes Spent Total Time Spent with Patient: Total time spent is greater than 50% in coordination of care (as documented) at patient's floor/unit and/or counseling patient: Coding Level of Care Code 89712 Subseq Hosp Care Lvl 2 Diagnoses Prostate cancer C61
[2021-02-13] MEDS: ASPIRIN 81 MG ECTAB PO SCH (08:50)
[2021-02-13] MEDS: ISOSORBIDE MONO EXTENDED REL 30 MG TABCR PO SCH (08:50)
[2021-02-13] MEDS: HEPARIN SOD 5,000 UNIT/0.5 ML VIAL SQ SCH ×2 (08:50→21:21)
[2021-02-13] MEDS: SIMVASTATIN 80 MG TAB PO SCH (08:51)
[2021-02-13] MEDS: PANTOprazole 40 MG TAB PO SCH (08:51)
[2021-02-13] MEDS: LACTATED RINGER'S 1,000 ML IV SCH ×2 (08:54→18:30)
[2021-02-13] MEDS: MoRPHine SULFATE 2 MG/ML CARP IV PRN (19:46)
[2021-02-13] MEDS ORDERED: ALUMINUM/MAGNESIUM SUSP 30 ML UDC PO PRN (22:48)
[2021-02-14] MEDS: LACTATED RINGER'S 1,000 ML IV SCH ×3 (04:13→23:55)
[2021-02-14] MEDS: HEPARIN SOD 5,000 UNIT/0.5 ML VIAL SQ SCH ×3 (07:18→22:14)
[2021-02-14] MEDS: ASPIRIN 81 MG ECTAB PO SCH (07:18)
[2021-02-14] MEDS: PANTOprazole 40 MG TAB PO SCH (07:19)
[2021-02-14] MEDS: SIMVASTATIN 80 MG TAB PO SCH (07:19)
[2021-02-14] MEDS: ISOSORBIDE MONO EXTENDED REL 30 MG TABCR PO SCH (07:19)
[2021-02-14] MEDS: ONDANSETRON INJ 2 MG/ML 2 ML VIAL IV PRN ×2 (07:27→23:36)
[2021-02-14] MEDS: MoRPHine SULFATE 2 MG/ML CARP IV PRN ×4 (07:32→22:16)
[2021-02-14 07:58] LABS: Basophils # (auto) 0.01 K/uL (0-0.2); Basophils % (auto) 0.2 %; Eosinophils # (auto) 0.03 K/uL (0-0.5); Eosinophils % (auto) 0.5 %; Hematocrit (blood only) 35.5 % (42-52); Hemoglobin 12.1 g/dL (14.0-18.0); Immature Granulocytes # (auto) 0.01 K/uL (0.00-0.02); Immature Granulocytes % (auto) 0.2 %; Lymphocytes # (auto) 0.58 K/uL (1.2-3.4); Lymphocytes % (auto) 9.1 %; Mean Corpuscular Hemoglobin 33.1 pg (25-34); Mean Corpuscular Hgb Conc 34.1 g/dL (32-36); Mean Platelet Volume 9.9 fL (7.4-10.4); Monocytes # (auto) 0.57 K/uL (0.11-0.59); Monocytes % (auto) 8.9 %; Neutrophils % (auto) 81.1 %; Platelet Count 146 K/uL (130-400); RDW Coefficient of Variation 14.9 % (11.5-14.5); Red Blood Count 3.66 M/uL (4.7-6.1)
[2021-02-14 08:28] LABS: BUN Creatinine Ratio 19.3 (10-20); Calcium 8.2 mg/dl (8.5-10.1); Creatinine Clr Calc Pharmacy 74.2 ml/min; Est GFR (African American) 107.3; Est GFR (Non-African American) 92.5; Potassium 3.7 mmol/L (3.5-5.1)
--- NOTE | 2021-02-14 08:54 | Urology Progress Note ---
Date of Service February 14, 2021 Assessment & Plan (1) Prostate cancer: Postop day 2 status post robotic prostatectomy Doing well Labs appropriate Plan to observe through lunch, if he tolerates his lunch we can discharge him home later today with his catheter Admission and Anticipated Discharge Date Admission Date: February 12, 2021 Subjective Patient feels he is turned the corner He did vomit this morning after taking his pills, but he reports that he is hungry and has no current nausea He has been drinking water without difficulty and taking clear liquids Does not have a tremendous appetite at baseline Physical Exam Physical Exam: Incisions healing appropriately Urine clear Results & Data ([facility]) Vital Signs (Past 12 Hours) Vital Signs Temp Pulse Resp BP Pulse Ox 02/14/21 07:55 36.6 C 73 16 154/71 H 93 02/13/21 22:30 37.3 C 61 16 123/64 92 PG Care Time/CCT Total # of Minutes Spent Total Time Spent with Patient: Total time spent is greater than 50% in coordination of care (as documented) at patient's floor/unit and/or counseling patient: Coding Level of Care Code 06097 Subseq Hosp Care Lvl 2 Diagnoses Prostate cancer C61
--- NOTE | 2021-02-14 23:34 | Urology Progress Note ---
Date of Service February 14, 2021 Assessment & Plan (1) Ileus, postoperative: Pt told not to drink tonite Encourage ambulation kub ordered for 7am as well as am labs consider dulcolox if ileus persists Admission and Anticipated Discharge Date Admission Date: February 12, 2021 Subjective Pt continues to complain of nausea and difficulty drinking fluids . No anti nausea meds this am . Continues to require pain meds . Spoke with nurse . Pt has bile taste . No emesis . Abdomen not rigid . pt states pain worse on left than right . Nl wbc this am and no fever and stable vitals Results & Data ([facility]) Vital Signs (Past 12 Hours) Vital Signs Temp Pulse Resp BP Pulse Ox 02/14/21 22:48 36.8 C 76 17 117/69 91 02/14/21 16:00 36.5 C 63 18 129/69 91 PG Care Time/CCT Total # of Minutes Spent Total Time Spent with Patient: Total time spent is greater than 50% in coordination of care (as documented) at patient's floor/unit and/or counseling patient: Coding Level of Care Code None Diagnoses Ileus, postoperative K91.89; K56.7
[2021-02-15] MEDS: MoRPHine SULFATE 2 MG/ML CARP IV PRN ×3 (05:08→19:48)
[2021-02-15] MEDS: ONDANSETRON INJ 2 MG/ML 2 ML VIAL IV PRN ×3 (05:36→19:49)
[2021-02-15 06:37] LABS: Eosinophils # (auto) 0.04 K/uL (0-0.5); Eosinophils % (auto) 0.8 %; Hematocrit (blood only) 33.7 % (42-52); Hemoglobin 11.6 g/dL (14.0-18.0); Immature Granulocytes # (auto) 0.01 K/uL (0.00-0.02); Immature Granulocytes % (auto) 0.2 %; Lymphocytes # (auto) 0.48 K/uL (1.2-3.4); Mean Platelet Volume 10.2 fL (7.4-10.4); Monocytes # (auto) 0.52 K/uL (0.11-0.59); Monocytes % (auto) 10.8 %; Neutrophils # (auto) 3.76 K/uL (1.4-6.5); Neutrophils % (auto) 78.2 %; Platelet Count 150 K/uL (130-400); RDW Coefficient of Variation 14.6 % (11.5-14.5); RDW Standard Deviation 51.3 fL (36.4-46.3); Red Blood Count 3.51 M/uL (4.7-6.1); White Blood Count 4.81 K/uL (4.8-10.8)
[2021-02-15 06:50] LABS: Mean Corpuscular Hgb Conc 34.4 g/dL (32-36)
[2021-02-15 06:53] LABS: BUN Creatinine Ratio 13.6 (10-20); Calcium 8.3 mg/dl (8.5-10.1); Creatinine Clr Calc Pharmacy 72.2 ml/min; Est GFR (African American) 106.1; Est GFR (Non-African American) 91.5
--- NOTE | 2021-02-15 07:15 | XRay Report ---
KUB HISTORY: Acute nausea nausea COMPARISON: CT pelvis 02/12/2021 FINDINGS: Numerous air-filled loops of distended small bowel measure up to 5.0 cm transversely. A sma ll amount of air is noted within the large bowel. Catheter projects over the urinary bladder. Air pro jects over the right lateral midabdomen. Left iliac vascular stent. No renal calculi. No ureteral ca lculi. Surgical clip of the left midabdomen. Lumbar levoscoliosis with advanced multilevel degenerati ve changes. No fracture. IMPRESSION: 1. Distended air-filled loops of small bowel favor postoperative ileus. Follow-up is recommended to e xclude obstruction. 2. Extraluminal air projects over the right lateral midabdomen may be within the abdominal wall and i s also likely postsurgical. ACT 112: Negative or not required by law. The above report was generated using voice recognition software. It may contain grammatical, syntax o r spelling errors. Electronically signed by: Jamey Broderick M.D. 02/15/2021 7:13 AM
--- NOTE | 2021-02-15 08:40 | Urology Progress Note ---
Date of Service February 15, 2021 Assessment & Plan (1) Prostate cancer: (2) Ileus, postoperative: - Postop day #3 s/p Laparoscopic Robotic Assisted Prostatectomy, Urethral dilation, and Extensive Lysis of Adhesions with Dr. Valderrama - Afebrile, VSS. - Labs reviewed, Wbc and creatinine stable - Patient made NPO status overnight, KUB this morning favored postoperative ileus - Plan of care reviewed with Dr. Valderrama - Order placed for NG tube insertion - Unsuccessful attempt from nursing - Will keep NPO and continue to monitor closely - Maintain fam catheter - Continue supportive care, encourage ambulation, and use of incentive spirometer - Plan for repeat KUB in AM Admission and Anticipated Discharge Date Admission Date: February 12, 2021 Subjective Patient examined at bedside this morning with Dr. Wilson Awake, resting comfortably in bed on arrival. No acute distress. He reports some mild nausea this morning, which worsens with movement. Last reported emesis was 0530 this morning. No flatus. Fam catheter intact/patent, draining concentrated yellow urine. No fevers or chills. Pain controlled with PRN IV medication. Overnight, patient had complaints of nausea, pain in the lower abdomen, and bile taste. Dr. Wilson was notified, and a KUB and labs were obtained. Patient made NPO status. KUB IMPRESSION: 1. Distended air-filled loops of small bowel favor postoperative ileus. Follow- up is recommended to exclude obstruction. 2. Extraluminal air projects over the right lateral midabdomen may be within the abdominal wall and is also likely postsurgical. Chart review this morning: Afebrile, VSS. Wbc 4.81, Hgb 11.6, Cr 0.74. Review of Systems Constitutional: as per Subjective / HPI Gastrointestinal: as per Subjective / HPI Genitourinary: + as per Subjective / HPI Physical Exam Constitutional: well developed and well nourished; no acute distress Respiratory: no respiratory distress and no labored breathing Cardiovascular: Extremities: no calf tenderness Gastrointestinal (Abdomen): Abdomen soft, mild right-sided tenderness with palpation- No rebound or guarding. Mildy distended, Hypoactive bowel sounds. Surgical incisions appropriate. Musculoskeletal: Head/Neck/Chest: normocephalic and head atraumatic Skin: Warm and dry Neurologic: moves all extremities and awake Psychiatric: A+Ox3, euthymic affect Genitourinary: Fam catheter intact/patent, draining concentrated yellow urine Results & Data ([facility]) Vital Signs (Past 12 Hours) Vital Signs Temp Pulse Pulse Resp BP Pulse Ox 02/15/21 07:51 36.9 C 71 16 133/77 92 02/15/21 05:26 36.9 C 77 18 123/75 90 02/15/21 03:31 36.8 C 68 17 155/76 H 94 02/14/21 22:48 36.8 C 76 17 117/69 91 PG Care Time/CCT Total # of Minutes Spent Total Time Spent with Patient: Total time spent is greater than 50% in coordination of care (as documented) at patient's floor/unit and/or counseling patient: Coding Level of Care Code None Diagnoses Prostate cancer C61 Ileus, postoperative K91.89; K56.7
[2021-02-15] MEDS: ASPIRIN 81 MG ECTAB PO SCH (09:39)
[2021-02-15] MEDS: ISOSORBIDE MONO EXTENDED REL 30 MG TABCR PO SCH (09:39)
[2021-02-15] MEDS: PANTOprazole 40 MG TAB PO SCH (09:40)
[2021-02-15] MEDS: SIMVASTATIN 80 MG TAB PO SCH (09:40)
[2021-02-15] MEDS ORDERED: COUGH DROP (SUGAR FREE) LOZ 24 LOZ/1 BOX BUCCAL ONE (11:42)
[2021-02-15] MEDS: LACTATED RINGER'S 1,000 ML IV SCH ×2 (12:52→21:39)
[2021-02-15] MEDS: HEPARIN SOD 5,000 UNIT/0.5 ML VIAL SQ SCH ×2 (12:52→20:31)
[2021-02-16 06:14] LABS: Basophils # (auto) 0.01 K/uL (0-0.2); Basophils % (auto) 0.2 %; Eosinophils # (auto) 0.06 K/uL (0-0.5); Hematocrit (blood only) 35.1 % (42-52); Hemoglobin 12.2 g/dL (14.0-18.0); Immature Granulocytes # (auto) 0.01 K/uL (0.00-0.02); Immature Granulocytes % (auto) 0.2 %; Lymphocytes # (auto) 0.62 K/uL (1.2-3.4); Lymphocytes % (auto) 10.8 %; Mean Corpuscular Hemoglobin 33.2 pg (25-34); Mean Corpuscular Hgb Conc 34.8 g/dL (32-36); Mean Corpuscular Volume 95.4 fL (80-100); Mean Platelet Volume 10.5 fL (7.4-10.4); Monocytes # (auto) 0.63 K/uL (0.11-0.59); Neutrophils # (auto) 4.39 K/uL (1.4-6.5); Neutrophils % (auto) 76.8 %; Platelet Count 168 K/uL (130-400); RDW Coefficient of Variation 14.3 % (11.5-14.5); RDW Standard Deviation 50.2 fL (36.4-46.3); Red Blood Count 3.68 M/uL (4.7-6.1); White Blood Count 5.72 K/uL (4.8-10.8)
[2021-02-16] MEDS: LACTATED RINGER'S 1,000 ML IV SCH ×2 (06:27→17:10)
[2021-02-16 06:47] LABS: BUN Creatinine Ratio 17.9 (10-20); Calcium 8.2 mg/dl (8.5-10.1); Creatinine Clr Calc Pharmacy 76.3 ml/min; Est GFR (African American) 108.5; Est GFR (Non-African American) 93.6; Potassium 3.7 mmol/L (3.5-5.1)
[2021-02-16] MEDS: PANTOprazole 40 MG TAB PO SCH (09:14)
[2021-02-16] MEDS: ASPIRIN 81 MG ECTAB PO SCH (09:14)
[2021-02-16] MEDS: SIMVASTATIN 80 MG TAB PO SCH (09:14)
[2021-02-16] MEDS: ISOSORBIDE MONO EXTENDED REL 30 MG TABCR PO SCH (09:14)
--- NOTE | 2021-02-16 09:33 | XRay Report ---
KUB CLINICAL HISTORY: Postoperative ileus. COMPARISON STUDY: KUB February 15, 2021. FINDINGS: Abdominal wall gas has slightly decreased. This is postsurgical. Camacho catheter is in place . A left iliac stent is incidentally noted. Multiple loops of moderately dilated small bowel are note d. Small bowel dilatation is similar to prior exam. Small bowel measures 5 cm in caliber. A small elmer unt of colonic gas is present. IMPRESSION: Persistent moderate small bowel dilatation. Small amount of colonic gas. The findings fa vor a postoperative ileus. A small bowel obstruction could appear similar although is considered less likely. ACT 112: Negative or not required by law. Electronically signed by: Suresh Guerrero M.D. 02/16/2021 9:32 AM
[2021-02-16] MEDS: HEPARIN SOD 5,000 UNIT/0.5 ML VIAL SQ SCH ×2 (09:34→21:18)
--- NOTE | 2021-02-16 09:39 | Urology Progress Note ---
Date of Service February 16, 2021 Assessment & Plan (1) Prostate cancer: Postop day #3 s/p Laparoscopic Robotic Assisted Prostatectomy, Urethral dilation, and Extensive Lysis of Adhesions with Dr. Valderrama Patient had issues with nausea/vomiting postoperatively and likely ileus. Patient is being treated with conservative measures including bowel rest, increasing activity, and monitoring. Was unable to tolerate NG tube placement. Patient has improved. Has been returned to normal medications. Is trying to increase activity. Pain has largely been controlled. No considerable return to bowel function except patient has developed flatus and has not had bowel movement yet. (2) Ileus, postoperative: As above. Patient does have continued distention with occasional belching. Had developed flatus this morning but no bowel movement. We will continue with rest, recommend ice/gum, continue with n.p.o. otherwise, and will add suppositories Admission and Anticipated Discharge Date Admission Date: February 12, 2021 Subjective Postop day 3 from urologic surgery with Dr. Valderrama for a robotic assisted laparoscopic prostatectomy. Patient had issues with nausea and vomiting in the postoperative days and was thought to have developed ileus. Patient has been placed on bowel rest and has attempted to increase mobility. Has yet to have return of bowel function. Since holding diet, patient has been tolerating well, but is having some pain and discomfort. Incisions have been mild sore. Having some abdominal distension/gas pains. Has tolerated catheter. Has not had severe pain or uncontrollable pain. Patient has been ambulating. Has not yet had bowel movement or major change. No new nausea or vomiting since issues yesterday. Review of Systems Review of Systems: All systems reviewed & are unremarkable except as noted in HPI & below Physical Exam Physical Exam: General: Alert in no acute distress. HEENT: Normocephalic Atraumatic. Inspection normal. Cranial Nerves 2-12 Grossly intact. Normal inspection of face. Normal inspection of neck. Psychologic: Normal affect. Respiratory: Nonlabored. No use of accessory muscles. No tachypnea or dyspnea. Cardiovascular: No tachycardia Skin: [place] and Dry. No rashes or visible lesions. Extremities/Lymphatics: No edema Abdomen: Appropriately tender. Mild distended. No rebound or guarding. Wound: Clean, dry, covered. : Camacho in place draining clear yellow urine Results & Data ([facility]) Vital Signs (Past 12 Hours) Vital Signs Temp Pulse Resp BP Pulse Ox 02/16/21 07:45 36.8 C 78 17 135/81 93 02/15/21 22:16 36.9 C 76 17 134/79 93 PG Care Time/CCT Total # of Minutes Spent Total Time Spent with Patient: Total time spent is greater than 50% in coordination of care (as documented) at patient's floor/unit and/or counseling patient: Coding Level of Care Code 79364 Subseq Hosp Care Lvl 3 Diagnoses Prostate cancer C61 Ileus, postoperative K91.89; K56.7
[2021-02-16] MEDS ORDERED: bisacodyL 10 MG SUPP PR PRN (10:38)
[2021-02-16] MEDS: MoRPHine SULFATE 2 MG/ML CARP IV PRN (11:37)
[2021-02-16] MEDS: LORazepam 0.5 MG TAB PO PRN ×2 (21:21→22:00)
[2021-02-16] MEDS ORDERED: ONDANSETRON 4 MG OD TAB PO PRN (22:21)
[2021-02-16] MEDS ORDERED: PROMETHAZINE HCL 25 MG TAB PO PRN (22:22)
[2021-02-17] MEDS: LACTATED RINGER'S 1,000 ML IV SCH ×3 (03:18→23:12)
[2021-02-17 06:22] LABS: Basophils # (auto) 0.01 K/uL (0-0.2); Basophils % (auto) 0.1 %; Eosinophils # (auto) 0.07 K/uL (0-0.5); Eosinophils % (auto) 0.8 %; Hemoglobin 12.8 g/dL (14.0-18.0); Immature Granulocytes # (auto) 0.02 K/uL (0.00-0.02); Immature Granulocytes % (auto) 0.2 %; Lymphocytes # (auto) 0.51 K/uL (1.2-3.4); Lymphocytes % (auto) 5.7 %; Mean Corpuscular Hemoglobin 33.5 pg (25-34); Mean Corpuscular Hgb Conc 35.6 g/dL (32-36); Mean Corpuscular Volume 94.2 fL (80-100); Mean Platelet Volume 10.5 fL (7.4-10.4); Monocytes # (auto) 1.04 K/uL (0.11-0.59); Monocytes % (auto) 11.7 %; Neutrophils # (auto) 7.22 K/uL (1.4-6.5); Neutrophils % (auto) 81.5 %; Platelet Count 220 K/uL (130-400); RDW Coefficient of Variation 14.1 % (11.5-14.5); RDW Standard Deviation 48.9 fL (36.4-46.3); Red Blood Count 3.82 M/uL (4.7-6.1); White Blood Count 8.87 K/uL (4.8-10.8)
[2021-02-17 06:51] LABS: BUN Creatinine Ratio 28.6 (10-20); Calcium 8.3 mg/dl (8.5-10.1); Creatinine Clr Calc Pharmacy 87.6 ml/min; Est GFR (African American) 114.8; Est GFR (Non-African American) 99.1; Potassium 3.5 mmol/L (3.5-5.1)
[2021-02-17] MEDS: ASPIRIN 81 MG ECTAB PO SCH (10:00)
[2021-02-17] MEDS: HEPARIN SOD 5,000 UNIT/0.5 ML VIAL SQ SCH ×2 (10:00→20:18)
[2021-02-17] MEDS: ISOSORBIDE MONO EXTENDED REL 30 MG TABCR PO SCH (10:01)
[2021-02-17] MEDS: PANTOprazole 40 MG TAB PO SCH (10:01)
[2021-02-17] MEDS: MoRPHine SULFATE 2 MG/ML CARP IV PRN (10:01)
[2021-02-17] MEDS: SIMVASTATIN 80 MG TAB PO SCH (10:01)
--- NOTE | 2021-02-17 15:03 | Urology Progress Note ---
Date of Service February 17, 2021 Assessment & Plan (1) Prostate cancer: Postop day #5 s/p Laparoscopic Robotic Assisted Prostatectomy, Urethral dilation, and Extensive Lysis of Adhesions with Dr. Valderrama Patient had issues with nausea/vomiting postoperatively and likely ileus. Patient is being treated with conservative measures including bowel rest, increasing activity, and monitoring. Was unable to tolerate NG tube placement. Patient continues to have issues with n/v. No BM yet. Has been returned to normal medications. Is trying to increase activity. Pain has largely been controlled. No considerable return to bowel function except patient has developed flatus and has not had bowel movement yet. We will plan to check KUB today and assess for any changes. Encourage patient to continue with ambulation and bowel rest. Patient is frustrated due to the slow progression of resolution. Did discuss and reassured patient and encouraged to keep up with these conservative measures. (2) Ileus, postoperative: As above. Patient does have continued distention with occasional belching. Had developed flatus this morning but no bowel movement. We will continue with rest, recommend ice/gum, continue with n.p.o. otherwise, and will add suppositories Admission and Anticipated Discharge Date Admission Date: February 12, 2021 Subjective Postop day 5 from urologic surgery with Dr. Valderrama for a robotic assisted laparoscopic prostatectomy. Patient had issues with nausea and vomiting in the postoperative days and was thought to have developed ileus. Patient has been placed on bowel rest and has attempted to increase mobility. Has yet to have return of bowel function. Since holding diet, patient has been tolerating well, but is having some pain and discomfort. Incisions have been mild sore. Having some abdominal distension/gas pains. Has tolerated catheter. Has not had severe pain or uncontrollable pain. Patient has been ambulating. Has not yet had bowel movement or major change. Does have flatus. Considerable belching. Again had nausea with vomiting this Am. Review of Systems Review of Systems: All systems reviewed & are unremarkable except as noted in HPI & below Physical Exam Physical Exam: General: Alert in no acute distress. HEENT: Normocephalic Atraumatic. Inspection normal. Cranial Nerves 2-12 Grossly intact. Normal inspection of face. Normal inspection of neck. Psychologic: Normal affect. Respiratory: Nonlabored. No use of accessory muscles. No tachypnea or dyspnea. Cardiovascular: No tachycardia Skin: [place] and Dry. No rashes or visible lesions. Extremities/Lymphatics: No edema Abdomen: Appropriately tender. Mild distended. No rebound or guarding. Wound: Clean, dry, covered. : Camacho in place draining clear yellow urine Results & Data ([facility]) Vital Signs (Past 12 Hours) Vital Signs Temp Pulse Resp BP Pulse Ox 02/17/21 07:42 36.7 C 63 17 132/78 95 PG Care Time/CCT Total # of Minutes Spent Total Time Spent with Patient: Total time spent is greater than 50% in coordination of care (as documented) at patient's floor/unit and/or counseling patient: Coding Level of Care Code 40444 Subseq Hosp Care Lvl 3 Diagnoses Prostate cancer C61 Ileus, postoperative K91.89; K56.7
--- NOTE | 2021-02-17 16:44 | XRay Report ---
KUB CLINICAL HISTORY: Ileus COMPARISON STUDY: KUB February 16, 2021 FINDINGS: Camacho catheter is noted. Left iliac stent is incidentally noted. Gas within the right abdom inal wall is probably postsurgical. Multiple loops of moderately dilated small bowel are noted. Small bowel dilatation has slightly increased. Small bowel loops measure up to 6 cm in caliber. IMPRESSION: 1. Increase in small bowel dilatation. The findings may reflect a postoperative ileus or small bowel obstruction. 2. Gas within the right abdominal wall which is probably postsurgical. ACT 112: Negative or not required by law. Electronically signed by: Suresh Guerrero M.D. 02/17/2021 4:43 PM
[2021-02-18] MEDS: ASPIRIN 81 MG ECTAB PO SCH (07:55)
[2021-02-18] MEDS: MoRPHine SULFATE 2 MG/ML CARP IV PRN (07:55)
[2021-02-18] MEDS: ISOSORBIDE MONO EXTENDED REL 30 MG TABCR PO SCH (07:56)
[2021-02-18] MEDS: SIMVASTATIN 80 MG TAB PO SCH (07:56)
[2021-02-18] MEDS: PANTOprazole 40 MG TAB PO SCH (07:56)
[2021-02-18] MEDS: HEPARIN SOD 5,000 UNIT/0.5 ML VIAL SQ SCH ×2 (07:56→21:25)
[2021-02-18] MEDS: LACTATED RINGER'S 1,000 ML IV SCH ×2 (07:58→17:35)
--- NOTE | 2021-02-18 09:29 | Urology Progress Note ---
Date of Service February 18, 2021 Assessment & Plan (1) Prostate cancer: (2) Ileus, postoperative: Postop day #6 s/p Laparoscopic Robotic Assisted Prostatectomy, Urethral dilation, and Extensive Lysis of Adhesions with Dr. Valderrama - Patient with nausea/vomiting postoperatively and probable postoperative ileus. - Plan of care reviewed with Dr. Hare. - Afebrile, VSS. - No new labs at time of exam this morning - Will check a CBC and BMP today - Continues to have mild nausea. - Does have flatus this morning. BM yesterday following suppository. - Pain has largely been controlled. - Tolerating Camacho catheter. - Will repeat KUB today. - Keep NPO. - Continue with bowel rest, ambulation, and close monitoring. Admission and Anticipated Discharge Date Admission Date: February 12, 2021 Subjective Pt examined at bedside this AM. Awake, resting in bed on arrival. No abdominal or suprapubic pain, but reports "feeling bloated". Camacho catheter intact, draining clear, yellow urine. Some mild nausea this morning, no vomiting. Denies fevers or chills. He remains NPO. +Flatus this morning. He reports diarrhea x 2 yesterday evening following Dulcolax suppository. Ambulating with assistance. Chart review: Afebrile, Wbc and creatinine stable. KUB 02/17: 1. Increase in small bowel dilatation. The findings may reflect a postoperative ileus or small bowel obstruction. 2. Gas within the right abdominal wall which is probably postsurgical. Review of Systems Constitutional: as per Subjective / HPI Gastrointestinal: as per Subjective / HPI Genitourinary: + as per Subjective / HPI Physical Exam Constitutional: well developed and well nourished; no acute distress Respiratory: no respiratory distress and no labored breathing Cardiovascular: Extremities: no calf tenderness Gastrointestinal (Abdomen): Abdomen soft, mild tenderness with palpation- No rebound or guarding. Mildy distended, Hypoactive bowel sounds. Surgical incisions appropriate, Dermabond intact. Musculoskeletal: Head/Neck/Chest: normocephalic Neurologic: moves all extremities and awake Psychiatric: A+Ox3, euthymic affect Genitourinary: Camacho catheter intact Results & Data ([facility]) Vital Signs (Past 12 Hours) Vital Signs Temp Pulse Resp BP Pulse Ox 02/18/21 07:43 36.7 C 71 16 136/78 92 04/11/21 23:15 37 C 71 16 145/75 H 92 PG Care Time/CCT Total # of Minutes Spent Total Time Spent with Patient: Total time spent is greater than 50% in coordination of care (as documented) at patient's floor/unit and/or counseling patient: Coding Level of Care Code 56759 Subseq Hosp Care Lvl 2 Diagnoses Prostate cancer C61 Ileus, postoperative K91.89; K56.7
[2021-02-18 10:08] LABS: Basophils # (auto) 0.02 K/uL (0-0.2); Basophils % (auto) 0.2 %; Eosinophils # (auto) 0.15 K/uL (0-0.5); Eosinophils % (auto) 1.7 %; Hematocrit (blood only) 34.9 % (42-52); Hemoglobin 12.6 g/dL (14.0-18.0); Immature Granulocytes # (auto) 0.03 K/uL (0.00-0.02); Immature Granulocytes % (auto) 0.3 %; Lymphocytes # (auto) 0.65 K/uL (1.2-3.4); Lymphocytes % (auto) 7.2 %; Mean Corpuscular Hemoglobin 34.1 pg (25-34); Mean Corpuscular Hgb Conc 36.1 g/dL (32-36); Mean Corpuscular Volume 94.3 fL (80-100); Mean Platelet Volume 10.1 fL (7.4-10.4); Monocytes % (auto) 13.3 %; Neutrophils # (auto) 6.98 K/uL (1.4-6.5); Neutrophils % (auto) 77.3 %; Platelet Count 252 K/uL (130-400); RDW Coefficient of Variation 14.2 % (11.5-14.5); RDW Standard Deviation 48.8 fL (36.4-46.3); White Blood Count 9.03 K/uL (4.8-10.8)
[2021-02-18 10:41] LABS: BUN Creatinine Ratio 36.4 (10-20); Calcium 7.9 mg/dl (8.5-10.1); Creatinine Clr Calc Pharmacy 111.3 ml/min; Est GFR (African American) 126.7; Est GFR (Non-African American) 109.3; Potassium 3.7 mmol/L (3.5-5.1)
--- NOTE | 2021-02-18 13:11 | XRay Report ---
KUB HISTORY: Postoperative ileus COMPARISON: KUB 02/17/2021. FINDINGS: Progressive dilatation of the small bowel which now measures up to 7 cm in diameter. There is gas and stool seen within the colon. A rectal catheter is unchanged in position. Left common iliac artery stent is again noted. Degenerative changes and levoscoliosis within the lumbar spine. Redemon stration of the gas along the right abdominal wall. There may be a small component of subdiaphragmati c gas. No renal calculi. No ureteral calculi. No pneumoperitoneum or pneumatosis. IMPRESSION: 1. Progressive dilatation of the small bowel loops within the abdomen measuring up to 7 cm. This coul d represent an ileus versus obstruction. 2. Gas overlying the right abdominal wall is again noted. There may be a subdiaphragmatic component w hich raises the possibility of pneumoperitoneum. Dedicated abdomen and pelvis CT is recommended for f urther evaluation. 3. These findings were called/faxed to the referring physician following dictation. ACT 112: Negative or not required by law. Electronically signed by: Tomas Wang M.D. 02/18/2021 1:10 PM
[2021-02-19] MEDS: MoRPHine SULFATE 2 MG/ML CARP IV PRN ×2 (01:37→23:47)
[2021-02-19] MEDS: LACTATED RINGER'S 1,000 ML IV SCH ×2 (03:21→13:10)
--- NOTE | 2021-02-19 07:46 | Urology Progress Note ---
Date of Service February 19, 2021 Assessment & Plan (1) Ileus, postoperative: (2) Prostate cancer: s/p RALP - recovery slow secondary to post operative ileus - unfortunately, not any better, but also not any worse - very limited progress over the past several days - nutrition will likely need to be addressed today - will consult gen surg for assistance as bowel rest and time have not yet resolved the issue Admission and Anticipated Discharge Date Admission Date: February 12, 2021 Subjective No major changes overnight passing flatus, no large quantities no BMs still uncomfortable feeling and moderately nauseated still with hiccups/belching ambulating, but not extensively Physical Exam Physical Exam: AFVSS - unchanged ok appearing no resp distress RRR abd distended, but not rigid, not particularly tender incisions appropriate urine clear no edema Results & Data ([facility]) Vital Signs (Past 12 Hours) Vital Signs Temp Pulse Resp BP Pulse Ox 02/18/21 22:31 36.8 C 68 16 130/77 93 PG Care Time/CCT Total # of Minutes Spent Total Time Spent with Patient: Total time spent is greater than 50% in coordination of care (as documented) at patient's floor/unit and/or counseling patient: Coding Level of Care Code 14771 Subseq Hosp Care Lvl 2 Diagnoses Ileus, postoperative K91.89; K56.7 Prostate cancer C61
[2021-02-19] MEDS: SIMVASTATIN 80 MG TAB PO SCH (08:17)
[2021-02-19] MEDS: ISOSORBIDE MONO EXTENDED REL 30 MG TABCR PO SCH (08:17)
[2021-02-19] MEDS: ASPIRIN 81 MG ECTAB PO SCH (08:17)
[2021-02-19] MEDS: PANTOprazole 40 MG TAB PO SCH (08:17)
[2021-02-19] MEDS: HEPARIN SOD 5,000 UNIT/0.5 ML VIAL SQ SCH ×2 (08:17→20:26)
--- NOTE | 2021-02-19 09:05 | XRay Report ---
KUB CLINICAL HISTORY: Postoperative ileus. FINDINGS: 2 AP supine abdominal radiographs are compared to study dated 02/18/2021. There is persisten t gaseous distention of the small bowel as compared to yesterday. Gas overlying the right abdominal w all is unchanged. A rectal catheter is again noted. A left common iliac artery stent is in place. No abnormal abdominal calcifications identified. The skeletal structures are osteopenic and appear intac t. There is moderate to advanced lumbosacral spondylosis as well as scoliosis. IMPRESSION: 1. There is persistent gaseous distention of the small bowel which is similar to yesterday. This coul d represent ileus versus obstruction. 2. Gas overlying the right abdominal wall is unchanged pneumoperitoneum is not excluded. Electronically signed by: Ross Claire M.D. 02/19/2021 9:04 AM
--- NOTE | 2021-02-19 10:40 | Surgery Consultation ---
Date of Consultation February 19, 2021 Assessment & Plan (1) Ileus, postoperative: POD 7 prostatectomy Has first signs of returning bowel function. Keep NPO for today, will start PPN and plan for slowly advancing over the next several days. Supervising Physician Co-Signing Physician Notes I personally saw and evaluated the patient with Surendra Byers PA-C and agree with the assessment and plan. 71 yo s/p robotic prostatectomy with post-operative ileus -Had large BM this AM, still with some distension -Will start PPN today, hopefully will only need for 1-2 days -If still having bowel function and continues to improve by tomorrow AM, start clears -Will follow History of Present Illness Attending Physician: Johnnie Valderrama MD History of Present Illness 71 y/o male 7 days s/p robotic prostatectomy with extensive TAL with persistent ileus. Had difficulty placing NG, has had multiple nasal fractures. This morning had large bowel movement and feels much better and N/V have resolved. Some hiccups this morning but improved from yesterday. Allergies Allergy/AdvReac Type Severity Reaction Status Date / Time Sulfa (Sulfonamide Allergy Intermediate RASH/HIVES Verified 02/12/21 06:27 Antibiotics) codeine AdvReac Mild UPSETS Verified 02/12/21 06:27 STOMACH - NAUSEA wool AdvReac Mild ITCHING Verified 02/12/21 06:27 Home Medications Medication Instructions Recorded Confirmed Type ferrous sulfate 142 mg (45 mg 142 mg PO QAM tab 05/14/19 02/12/21 History iron) tablet,extended release aspirin 81 mg tablet 81 mg PO QAM tab 09/27/19 02/12/21 History nitroglycerin 0.4 mg sublingual 0.4 mg SL Q5M PRN #25 tab 09/27/19 02/06/21 History tablet isosorbide mononitrate 30 mg 30 mg PO DAILY #90 tab 03/16/20 02/12/21 Rx tablet,extended release 24 hr omeprazole 40 mg capsule,delayed 40 mg PO DAILY #90 cap 11/23/20 02/12/21 Rx release lorazepam 0.5 mg tablet 0.5 mg PO DAILY PRN #14 tab 11/27/20 02/12/21 Rx diclofenac sodium 50 mg 50 mg PO BID #180 tab 12/17/20 02/12/21 Rx tablet,delayed release simvastatin 80 mg tablet 80 mg PO DAILY #90 tab 12/17/20 02/12/21 Rx oxycodone-acetaminophen 5 mg-325 1 tab PO QID PRN 01/23/21 02/12/21 History mg tablet Patient History Medical History AAA (abdominal aortic aneurysm) S/p bypass around 2001 CAD (coronary artery disease) Moderate RCA disease per 2013 cardiac cath GERD (gastroesophageal reflux disease) Well controlled and stable History of depression History of kidney stones No current issues History of melanoma S/p Mohns surgery Hx of glaucoma No current issues - follows with eye doctor Hyperlipidemia Hypertension PAD (peripheral artery disease) Aorta to right femoral and left external iliac bypass S/p stenting of left external iliac artery in the past Left external iliac artery angioplasty 08/03/20 Known severe bilateral SFA disease--[place] class 2-3 claudication symptoms, moderate arterial insufficiency by ADRIENNE; followed by Dr. Proctor Prostate cancer Spinal stenosis Chronic low back pain Surgical History H/O prostate biopsy H/O vascular surgery Left External Iliac Artery Angioplasty History of abdominal aortic aneurysm repair Aorta to right femoral and left external iliac bypass 15 YEAR AGO AT [facility] History of cataract surgery RT/LEFT History of colonoscopy History of cystoscopy For urethral stricture History of Mohs micrographic surgery for skin cancer FACIAL AREA History of surgical procedure on eye proper using laser RT/LEFT (TO TREAT GLAUCOMA) History of tooth extraction S/P insertion of iliac artery stent ? 10 YEARS AGO AT [place] Family History Family/Other Cancer Father Diabetes Cancer Brain tumor Hypertension Daughter No problems noted. Mother Lupus Albino Other No family history of adverse response to anesthesia Denies family history of Ovarian cancer Prostate cancer Crohn's disease Myocardial infarction Breast cancer Colorectal cancer Social History Smoking Status: Current every day smoker Tobacco Type: Cigarettes Years Smoked: 57; Cigarettes Per Day: 10 CIG DAILY; Second Hand Exposure: No; Hx Alcohol Use: Yes Alcohol type: beer Alcohol Intake Frequency: 2-3 x/Week Hx Substance Use: Yes Last Used Substance Other:: 1 MONTH AGO (LAST USED>ADVISED) Preferred Language: Estonian Communication Ability: Effective Hearing Ability: Normal Private Branch Exchange Operator Required: No Beliefs That Will Affect Care: None marital status: Current Living Situation: Alone current occupational status: retired Feels Safe at Home: Yes caffeine: Yes (coffee) Dental Care, Regularly: No Physical Activity Frequency: Daily Seatbelt Use: sometimes Sunscreen Use: Yes Assistive Devices: Denture - Upper, Denture - Lower, Glasses and Walker Review of Systems Constitutional: no fever and no chills Gastrointestinal: + bloating, + nausea and + vomiting Physical Exam Constitutional: WD/WN, vitals as above Respiratory: normal respiratory effort Gastrointestinal (Abdomen): Inspection/Auscultation: + abdomen distended and + abdominal surgical incision (clean, dry) Percussion/Palpation: abdomen soft; abdomen nontender Results & Data ([facility]) Vital Signs (Past 12 Hours) Vital Signs Temp Pulse Resp BP Pulse Ox 02/19/21 07:52 36.8 C 80 16 122/70 90 PG Care Time/CCT Total # of Minutes Spent Total Time Spent with Patient: Total time spent is greater than 50% in coordination of care (as documented) at patient's floor/unit and/or counseling patient: Coding Level of Care Code 12246 Initial Inpt Care Lvl 2 Diagnoses Ileus, postoperative K91.89; K56.7
[2021-02-19] MEDS ORDERED: DEXTROSE 10% 1,000 ML IV PRN (11:13)
[2021-02-19] MEDS ORDERED: TPN/PPN CONSULT PHARMACY STA (11:13)
[2021-02-19] MEDS ORDERED: TPN/PPN CONSULT PHARMACY PRN (11:17)
[2021-02-19 12:07] LABS: Phosphorus 2.7 mg/dl (2.5-4.9)
--- NOTE | 2021-02-19 13:33 | Pharmacy Report ---
Pharmacy PN Initial Consult - Date of Service February 19, 2021 - Scope Pharmacy has been consulted to manage parenteral nutrition orders and order appropriate labs. As part of the Nutrition Support Team guidelines, pharmacy will work in conjunction with dietary when determining the patients caloric needs. - Subjective The patient is a 71 year old M admitted on 02/12/21 11:40 for Prostate Cancer. Patient is to receive parenteral nutrition for prolonged NPO status, anticipate short course. Pertinent PMH: Post op day #7 s/p prostatectomy, patient has been mostly NPO since 02/11 - Objective Height: 5 ft 10 in Weight: 59.7 kg Intake & Output (Last 24Hrs): Intake & Output 02/17/21 02/18/21 02/19/21 02/20/21 06:59 06:59 06:59 06:59 Intake Total 2288.333 / 2288.333 1731.667 / 2217.082 6483.334 / 3148.334 671.667 / 671.667 Output Total 1751 / 1751 1875 / 1875 1050 / 1050 Balance 537.333 / 537.333 -143.333 / -186.732 4846.334 / 2098.334 671.667 / 671.667 Weight 57.4 kg 57.4 kg 59.7 kg Laboratory Data (Last 24 Hrs):: 02/19/21 11:32 Phosphorus 2.7 Magnesium 2.0 Triglycerides 95 Nutrition Assessment:: Please refer to the Notes section of the EMR for the 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 - Assessment Fluid: LR @ 100 ml/hr (providing 130 mEq sodium, K 4 mEq, calcium 2.7 mEq/L, chloride 109 mEq/L, lactate 28 mEq per L) Electrolytes: Within normal limits Nutrition: glucose 85, TG 95, NPO - Plan For day 1 of PN administration, the following will be ordered: Macronutrients Amino acids 60 grams/day Dextrose 150 grams/day Lipids 50 grams/day Micronutrients Combined electrolytes 20 mL - contains 35 mEq Na, 20 meq K, 4.5 mEq Ca, 5 mEq Mg, 35 mEq Cl, 29.5 mEq acetate per 20 mL Sodium chloride 90 mEq Sodium acetate 50 mEq Potassium phosphate 15 mMol Multivitamins 10 mL Trace Elements 10 mL Additional additives: Thiamine 100 mg Total volume 2000 mL to be infused over 24 hrs will provide 1250 kcal/day Final osmolarity 893 mOsm/L (maximum for PPN is 900 mOsm/L) BMP, Mg, Phos ordered with AM labs, LR to decrease to 17 ml/hr when ppn starts for a total fluid volume ~100 ml/hr (2400 ml), monitor I&0. Monitor Pharmacy will follow and adjust parenteral nutrition orders on a daily basis. Thank you.
[2021-02-19] MEDS ORDERED: LACTATED RINGER'S 1,000 ML IV SCH (16:00)
[2021-02-19] MEDS ORDERED: Custom Peripheral Pn 2,000 ML in TPN BAG 0 ML IV SCH (16:00)
[2021-02-20 07:31] LABS: BUN Creatinine Ratio 25.4 (10-20); Calcium 7.3 mg/dl (8.5-10.1); Creatinine Clr Calc Pharmacy 104.8 ml/min; Est GFR (African American) 121.7; Phosphorus 2.5 mg/dl (2.5-4.9)
--- NOTE | 2021-02-20 08:05 | Urology Progress Note ---
Date of Service February 20, 2021 Assessment & Plan (1) Prostate cancer: Progressing, slow resolution of his ileus Receiving peripheral nutrition now Continue to wait on return of full bowel function, encouraged by the bowel movement yesterday but I suspect is distention is likely about the same as it was prior to the bowel movement Appreciate general surgery input (2) Ileus, postoperative: Admission and Anticipated Discharge Date Admission Date: February 12, 2021 Subjective Had a bowel movement last night which seemed to relieve some of his pressure, he reports it was relatively large volume Minimal flatus, no further bowel movement since that time He is subjectively somewhat improved today but still distended He denies any nausea Increasingly anxious to go home Ambulating but not extensively Physical Exam Physical Exam: Incisions appropriate, abdomen modestly distended Urine clear Results & Data ([facility]) Vital Signs (Past 12 Hours) Vital Signs Temp Pulse Resp BP Pulse Ox 02/20/21 07:12 60 16 101/55 L 92 02/20/21 00:02 36.9 C 81 16 108/52 L 90 PG Care Time/CCT Total # of Minutes Spent Total Time Spent with Patient: Total time spent is greater than 50% in coordination of care (as documented) at patient's floor/unit and/or counseling patient: Coding Level of Care Code 35034 Subseq Hosp Care Lvl 2 Diagnoses Prostate cancer C61 Ileus, postoperative K91.89; K56.7
[2021-02-20] MEDS: ASPIRIN 81 MG ECTAB PO SCH (08:08)
[2021-02-20] MEDS: PANTOprazole 40 MG TAB PO SCH (08:08)
[2021-02-20] MEDS: HEPARIN SOD 5,000 UNIT/0.5 ML VIAL SQ SCH ×2 (08:08→20:48)
[2021-02-20] MEDS: ISOSORBIDE MONO EXTENDED REL 30 MG TABCR PO SCH (08:08)
[2021-02-20] MEDS: SIMVASTATIN 80 MG TAB PO SCH (08:09)
--- NOTE | 2021-02-20 08:36 | Surgery Progress Note ---
Date of Service February 20, 2021 Assessment & Plan (1) Ileus, postoperative: POD#8 prostatectomy, with post operative ileus Patient had BM yesterday and states he continues to pass flatus. He denies n/v and says he is feeling thirsty this AM Still with some abdominal distention Can trial clear liquids today. Continue PPN until patient has adequate diet intake Will continue to follow closely Admission and Anticipated Discharge Date Admission Date: February 12, 2021 Supervising Physician Co-Signing Physician Notes I personally saw and evaluated the patient with Aracely Schwartz PA-C and agree with the assessment and plan. 71 yo s/p robotic prostatectomy with post-operative ileus -Still with some distension -Continue PPN -If still having bowel function and continues to improve by tomorrow AM, advance to regular diet -Will follow Subjective Patient states he is feeling well. Says he is passing flatus, last BM was yesterday. Currently denies any nausea/vomiting. Has some discomfort to R abdomen, demetri-incisionally. Physical Exam Physical Exam: awake/alert Respiratory: normal respiratory effort Gastrointestinal (Abdomen): Inspection/Auscultation: + abdomen distended (mod.) and + abdominal surgical incision (c/d/i) Percussion/Palpation: + abdomen tender (some discomfort to palpation demetri-incisionally) and abdomen soft Results & Data ([facility]) Vital Signs (Past 12 Hours) Vital Signs Temp Pulse Resp BP Pulse Ox 02/20/21 07:12 60 16 101/55 L 92 02/20/21 00:02 36.9 C 81 16 108/52 L 90 PG Care Time/CCT Total # of Minutes Spent Total Time Spent with Patient: Total time spent is greater than 50% in coordination of care (as documented) at patient's floor/unit and/or counseling patient: Coding Level of Care Code 86199 Subseq Hosp Care Lvl 1 Diagnoses Ileus, postoperative K91.89; K56.7
[2021-02-20] MEDS: POTASSIUM CHLORIDE / WTR 10 MEQ/100 ML PLCT IV SCH ×3 (10:53→16:05)
[2021-02-20] MEDS ORDERED: Custom Peripheral Pn 2,400 ML in TPN BAG 0 ML IV SCH (16:00)
[2021-02-20] MEDS: MoRPHine SULFATE 2 MG/ML CARP IV PRN (23:47)
[2021-02-21] MEDS: MoRPHine SULFATE 2 MG/ML CARP IV PRN ×3 (01:22→22:31)
[2021-02-21 07:33] LABS: BUN Creatinine Ratio 21.2 (10-20); Calcium 7.9 mg/dl (8.5-10.1); Creatinine Clr Calc Pharmacy 102.5 ml/min; Est GFR (African American) 119.8; Est GFR (Non-African American) 103.4; Magnesium 1.9 mg/dl (1.8-2.4); Phosphorus 2.8 mg/dl (2.5-4.9); Potassium 3.7 mmol/L (3.5-5.1)
[2021-02-21] MEDS: PANTOprazole 40 MG TAB PO SCH ×2 (07:51→09:06)
[2021-02-21] MEDS: ASPIRIN 81 MG ECTAB PO SCH (08:07)
[2021-02-21] MEDS: HEPARIN SOD 5,000 UNIT/0.5 ML VIAL SQ SCH ×2 (08:08→19:32)
[2021-02-21] MEDS: SIMVASTATIN 80 MG TAB PO SCH (08:08)
[2021-02-21] MEDS: ISOSORBIDE MONO EXTENDED REL 30 MG TABCR PO SCH (08:08)
--- NOTE | 2021-02-21 08:35 | Urology Progress Note ---
Date of Service February 21, 2021 Assessment & Plan (1) Prostate cancer: Ileus resolving may consider slow advance of diet today cont ambulation fam out before d/c home Admission and Anticipated Discharge Date Admission Date: February 12, 2021 Subjective more bowel function overnight passing flatus and having loose bowel movements decreased pain asking for real food does not want his catheter out today Physical Exam Physical Exam: abd soft, mildly distended incisions appropriate urine clear Results & Data ([facility]) Vital Signs (Past 12 Hours) Vital Signs Temp Pulse Resp BP Pulse Ox 02/21/21 07:19 36.9 C 82 16 137/83 93 02/20/21 23:50 36.9 C 76 18 126/76 93 PG Care Time/CCT Total # of Minutes Spent Total Time Spent with Patient: Total time spent is greater than 50% in coordination of care (as documented) at patient's floor/unit and/or counseling patient: Coding Level of Care Code 92847 Subseq Hosp Care Lvl 2 Diagnoses Prostate cancer C61
--- NOTE | 2021-02-21 09:37 | Surgery Progress Note ---
Date of Service February 21, 2021 Assessment & Plan (1) Ileus, postoperative: resolving low fiber diet can stop PPN Admission and Anticipated Discharge Date Admission Date: February 12, 2021 Supervising Physician Co-Signing Physician Notes I personally saw and evaluated the patient with Narciso Byers PA-C and agree with the assessment and plan. 71 yo s/p robotic prostatectomy with resolving post-operative ileus -Continue PPN until bag finished, stop tonight -Advance to low fiber diet -Call back with any questions or concerns Subjective tolerating clears, bowels moving, wants to eat more Physical Exam Gastrointestinal (Abdomen): Inspection/Auscultation: abdomen not distended Percussion/Palpation: abdomen soft Results & Data ([facility]) Vital Signs (Past 12 Hours) Vital Signs Temp Pulse Resp BP Pulse Ox 02/21/21 07:19 36.9 C 82 16 137/83 93 02/20/21 23:50 36.9 C 76 18 126/76 93 PG Care Time/CCT Total # of Minutes Spent Total Time Spent with Patient: Total time spent is greater than 50% in coordination of care (as documented) at patient's floor/unit and/or counseling patient: Coding Level of Care Code 95814 Subseq Hosp Care Lvl 1 Diagnoses Ileus, postoperative K91.89; K56.7
[2021-02-21] MEDS ORDERED: Custom Peripheral Pn 2,400 ML in TPN BAG 0 ML IV SCH (16:00)
[2021-02-21] MEDS: oxyCODONE HCL IR 5 MG TAB (IMMEDIATE RELEASE) PO PRN (22:36)
[2021-02-22] MEDS: oxyCODONE HCL IR 5 MG TAB (IMMEDIATE RELEASE) PO PRN (03:25)
[2021-02-22 06:25] LABS: BUN Creatinine Ratio 22.9 (10-20); Calcium 7.5 mg/dl (8.5-10.1); Creatinine Clr Calc Pharmacy 125.3 ml/min; Est GFR (African American) 130.1; Est GFR (Non-African American) 112.3; Magnesium 2.1 mg/dl (1.8-2.4); Phosphorus 3.8 mg/dl (2.5-4.9); Potassium 4.3 mmol/L (3.5-5.1)
[2021-02-22] MEDS: PANTOprazole 40 MG TAB PO SCH (07:58)
[2021-02-22] MEDS: SIMVASTATIN 80 MG TAB PO SCH (09:03)
[2021-02-22] MEDS: ASPIRIN 81 MG ECTAB PO SCH (09:03)
[2021-02-22] MEDS: HEPARIN SOD 5,000 UNIT/0.5 ML VIAL SQ SCH (09:03)
[2021-02-22] MEDS: ISOSORBIDE MONO EXTENDED REL 30 MG TABCR PO SCH (09:03)
--- NOTE | 2021-02-22 09:27 | Urology Progress Note ---
Date of Service February 22, 2021 Assessment & Plan (1) Prostate cancer: (2) Ileus, postoperative: - Postop day #10 s/p Laparoscopic Robotic Assisted Prostatectomy, Urethral dilation, and Extensive Lysis of Adhesions with postoperative ileus - Plan of care reviewed with Dr. Valderrama - Afebrile, VSS. - Patient feeling well, eager to go home - Passing flatus and had BM yesterday - Tolerating low fiber diet, no nausea or vomiting - Minimal pain - Remove Camacho catheter and monitor for ability to spontaneously void - Stable for discharge home today - Expected clinical course reviewed with patient, all questions were answered - Appropriate postoperative follow-ups in place Admission and Anticipated Discharge Date Admission Date: February 12, 2021 Subjective Pt examined at bedside this AM Awake, resting in bed on arrival. Tolerating diet, no nausea or vomiting. No fevers or chills. Camacho catheter intact, draining clear, yellow urine. Passing flatus and had loose bowel movement yesterday. Minimal pain. Review of Systems Constitutional: as per Subjective / HPI Gastrointestinal: as per Subjective / HPI Genitourinary: + as per Subjective / HPI Physical Exam Constitutional: well developed and well nourished; no acute distress and not ill appearing Respiratory: no respiratory distress and no labored breathing Gastrointestinal (Abdomen): abd soft, non-tender mildly distended incisions appropriate Skin: no rashes, warm and dry Neurologic: moves all extremities and awake Psychiatric: A+Ox3, euthymic affect Genitourinary: Camacho catheter intact Results & Data ([facility]) Vital Signs (Past 12 Hours) Vital Signs Temp Pulse Resp BP Pulse Ox 02/22/21 07:53 36.7 C 83 16 122/72 93 02/21/21 23:31 36.7 C 75 14 128/78 97 PG Care Time/CCT Total # of Minutes Spent Total Time Spent with Patient: Total time spent is greater than 50% in coordination of care (as documented) at patient's floor/unit and/or counseling patient: Coding Level of Care Code 15586 Subseq Hosp Care Lvl 2 Diagnoses Prostate cancer C61 Ileus, postoperative K91.89; K56.7
--- NOTE | 2021-03-05 10:48 | Coding Query ---
Your help is needed for correct coding of this account; please clarify if the patients Post-operative Ileus was: ( x) expected out of the surgery - he has a very extensive prior surgical history, so his risk of post operative ileus was extremely high and discussed prior to his surgery ( ) unexpected complication from the surgery ( )other please specify Thank you MEIR Elder CCS MTDJeri
--- NOTE | 2021-05-07 14:28 | Discharge Summary ---
Date of Service May 07, 2021 Principal Diagnosis Prostate cancer Discharge Data Allergies Allergy/AdvReac Type Severity Reaction Status Date / Time Sulfa (Sulfonamide Allergy Intermediate RASH/HIVES Verified 02/28/21 11:45 Antibiotics) codeine AdvReac Mild UPSETS Verified 02/28/21 11:45 STOMACH - NAUSEA wool AdvReac Mild ITCHING Verified 02/28/21 11:45 Consultations 02/19/21 07:46 Consult General Surgery Routine Procedures Performed Operation Date: 02/12/21 07:30 Actual Procedures p Laparoscopic Robotic Assisted Prostatectomy, Urethral dilation, and Extensive Lysis of Adhesions(Not Applicable) - Miko Valderrama MD Hospital Course (1) Prostate cancer: Admitted for prostatectomy and underwent surgery without event. Of note, he has had substantial prior abdominal surgeries and there was an extensive lysis of adhesion performed at the time of surgery. He progressed well through the first 24 hours after surgery, however he then showed signs of developing a postoperative ileus. His diet was held and he was supported with IV fluids. Unfortunately failed to progress over the next 2 to 3 days and we had a general surgery consultation. There was no intervention felt necessary and he began to move his bowels in small quantities around postoperative day #4. This gradually improved. He did receive 1 day of PPN. He ultimately was able to begin eating a normal diet was discharged home in stable condition. There were no complications. He passed a voiding trial prior to discharge home. Total Time Total Time Spent Total Time Spent (In Minutes): 45 Discharge Plan Discharge Items Patient Disposition: Home - Self-Care Reason For Visit: Prostate Cancer Discharge Diagnosis: Prostate cancer Activity: Per Instructions section Lifting: No more than 25 pounds Bathing Comment: No tub baths, ok to shower. Sexual Activity: Wait until after follow-up appointment Exercise/Sports: Wait until after follow-up appointment Driving/Machine Use: Do not drive after taking narcotic pain medication Non-emergency contact: Surgeon and Urologist Call non-emergency contact if: you have any medication questions, your pain is not controlled, your pain is concerning for you, your temperature is above 101, your wound has increased redness, your wound has increased drainage and your wound pain has increased Follow-up/Referrals: Miko Valderrama MD [Physician] - 02/28/21 11:45 am Nitza Baca MD [Primary Care Provider] - [facility],Nurse [FAKE FOR SCHEDULES] - None Diet: Regular Addtl Attending Provider Instructions: Please take all medications as prescribed and keep all follow-ups as scheduled. Please call our office at [phone] with any questions, concerns or need to reschedule appointments for any reason. We are happy to assist you Activity: We recommend having someone with you for the first few days after surgery to help care for you. For the first 2 weeks after surgery, we would like you to get up and walk around your house. However, we recommend limit physical activity that would increase your heart rate. This will allow your body to rest and heal. Take naps if you feel tired. Don't lift anything heavier than 10 pounds, mow the law or ride a bicycle until your follow-up appointment. Please avoid long car rides. Home Care: Unless directed otherwise, drink 6 to 8 glasses of water a day (enough to keep your urine light colored). This will also help keep a healthy flow of urine. We recommend using a stool softener for the first two weeks to avoid constipation. Camacho Catheter or Suprapubic Catheter care: Keep the catheter well secured with either a leg back or leg strap with large bag. Empty your bag when it's about half full. You may notice some blood in the bag. This is normal after surgery and while the catheter is in place. Use mild soap (such as Dove or Dial) and water to wash the catheter and the head of your penis daily, or more frequently if needed. Return to your normal diet, we encourage good protein intake to promote healing. You may shower as normal. Please avoid tub baths or soaking until catheter removed and incisions well healed. Wearing sweat pants while you have the catheter is recommended, they will be more comfortable. Follow-up Your follow up appointments for having your catheter removed, and follow up with your physician should already be scheduled. If you have any questions regarding this, please contact our office. Your final pathology report will be discussed at your physician follow-up appointment. Call [facility] at [phone] right away if you have any of the following: Chest pain or trouble breathing (call 911 or go to the hospital) Fever of 101F or higher, uncontrolled vomiting Heavy bleeding, clots, or bright red blood from the catheter Catheter that falls out or stops draining Foul-smelling discharge from your catheter Redness, swelling, warmth, or increased pain at your incision site Drainage, pus, or bleeding from your incision Pending Studies at Discharge: Yes Studies:: Pathology Stand-Alone Forms: My [facility], Opioid Pain Management, Smoking Cessation Medications and DC Order Prescriptions: New docusate sodium [Colace] 100 mg capsule 100 mg PO BID Qty: 30 RF: 0 Continued omeprazole 40 mg capsule,delayed release(DR/EC) 40 mg PO DAILY Qty: 90 RF: 1 diclofenac sodium 50 mg tablet,delayed release (DR/EC) 50 mg PO BID Qty: 180 RF: 1 simvastatin 80 mg tablet 80 mg PO DAILY Qty: 90 RF: 1 Slow Fe 142 mg (45 mg iron) tablet extended release 142 mg PO QAM RF: 0 aspirin 81 mg tablet 81 mg PO QAM RF: 0 nitroglycerin 0.4 mg tablet, sublingual 0.4 mg SL Q5M PRN (Reason: Chest Pain) Qty: 25 RF: 0 lorazepam [Ativan] 0.5 mg tablet 0.5 mg PO DAILY PRN (Reason: anxiety) Qty: 14 RF: 0 No Action isosorbide mononitrate 30 mg tablet extended release 24 hr 30 mg PO DAILY Qty: 90 RF: 3 ciprofloxacin HCl [Cipro] 500 mg tablet 500 mg PO BID Qty: 14 RF: 0 Discharge Orders: Discharge Order (Routine); Ordered 02/22/21 Ordered By: Kayla Guerrero/Other Patient Handouts: Preventing Deep Vein Thrombosis Admission Data Admit Date/Time: 02/12/21 11:40 Attending Provider: Miko Valderrama Admit Provider: Miko Valderrama Primary Care Provider: Nitza Baca Other Providers: Juan Alberto Lara ; Jon Davila ; Robert Ulrich ; Surendra Byers Jr ; Asif Washington ; Dereck Machuca ; Aracely Schwartz ; Corey Alejandra ; Demetrio Roy Other Interventions: Discharge Summary Assessment (RN) Last Done: 02/22/21 12:49 Coding Level of Care Code D/C Day Management >30 mins Diagnoses Prostate cancer C61
== END 2021-02-22 14:08 | disposition home or self-care (01) | DRG 707 ==
LOC: ASU 05:55 → 3N 11:40

== ENCOUNTER 2023-09-21 18:08 | Inpatient (IN) ==
--- NOTE | 2023-09-21 18:28 | ED Triage Note ---
Date of Service September 21, 2023 History of Present Illness This patient was briefly evaluated while in triage. An abbreviated physical exam was performed. This patient is a 73-year-old Male who presents to the ED for evaluation of abdominal pain. Vomiting since 10am today. Noting abd pain, 8/10. Blood in the vomit per patient. On aspirin, one per day. Physical Exam GENERAL: 73 year old male. In no acute distress. SKIN: No lesions or rashes. HEART: Regular rate and rhythm. LUNGS: Clear to auscultation. ABDOMEN: Bowel sounds normoactive. No guarding or rigidity. L sided TTP noted. NEURO: Alert and oriented. No deficits. MUSCULOSKELETAL: No deformities to inspection of the extremities. PSYCH: Patient is pleasant and answers all questions appropriately. Initial orders for labs and / or imaging were placed and patient was placed in the waiting area until a bed is available. Please see further documentation for the full ED course.
[2023-09-21 19:22] LABS: Basophils # (auto) 0.02 K/uL (0.00-0.20); Basophils % (auto) 0.2 %; Hematocrit (blood only) 42.8 % (42.0-52.0); Hemoglobin 14.5 g/dl (14.0-18.0); Immature Granulocytes # (auto) 0.08 K/uL (0.01-0.20); Immature Granulocytes % (auto) 0.8 %; Lymphocytes # (auto) 0.64 K/uL (1.20-3.40); Lymphocytes % (auto) 6.1 %; Mean Corpuscular Hemoglobin 33.6 pg (25.0-34.0); Mean Corpuscular Hgb Conc 33.9 g/dL (32.0-36.0); Mean Corpuscular Volume 99.3 fL (80.0-100.0); Mean Platelet Volume 9.6 fL (9.4-12.4); Monocytes # (auto) 0.41 K/uL (0.11-0.59); Monocytes % (auto) 3.9 %; Neutrophils # (auto) 9.38 K/uL (1.40-6.50); Platelet Count 249 K/uL (130-400); RDW Coefficient of Variation 14.6 % (11.5-14.5); RDW Standard Deviation 54.2 fL (36.4-46.3); Red Blood Count 4.31 M/uL (4.70-6.10); White Blood Count 10.53 K/ul (4.8-10.8)
[2023-09-21 19:37] LABS: Albumin Globulin Ratio 1.5 (0.9-2); Albumin Level 4.3 gm/dl (3.4-5.0); BUN Creatinine Ratio 31.9 (10-20); Bilirubin,Total 0.6 mg/dl (0.2-1.0); Calcium 9.7 mg/dl (8.6-10.3); Creatinine Clr Calc Pharmacy 62.3 ml/min; Est GFR (African American) 105.8 ml/min; Est GFR (Non-African American) 91.3 ml/min; Globulin 2.8 gm/dl (2.5-4.0); Magnesium 1.7 mg/dl (1.7-2.4); Potassium 4.5 mmol/L (3.5-5.1); Total Protein 7.1 gm/dl (6.0-8.3)
[2023-09-21 19:43] LABS: Troponin I High Sensitivity 3.1 pg/ml (0-20)
[2023-09-21 19:49] LABS: Partial Thromboplastin Ratio 0.8; Partial Thromboplastin Time 21.4 Seconds (21.0-31.0); Prothrombin Time 10.8 Seconds (9.0-12.0)
[2023-09-21] MEDS ORDERED: OPTIRAY 320 100ml IV ONE (21:37)
--- NOTE | 2023-09-21 21:42 | Emergency Department Note ---
Impression & Plan Intractable abdominal pain, Intractable nausea and vomiting ED Provider Note HISTORY OF PRESENT ILLNESS: Patient is a 73-year-old male presenting with left middle abdominal pain and vomiting. Patient reports that acutely at 10 AM today he started having pain in his left mid abdomen and started having multiple episodes of vomiting. He reports he has been unable to keep anything down throughout the day. He tried taking an oxycodone that he had for the pain but vomited it up. He has vomited up any liquids that he has tried to take by mouth. Denies any fevers in the last few days. He denies any history of abdominal surgeries. He is on a baby aspirin daily. He reports that there was some blood-tinged to his vomitus earlier this evening. Denies any chest pain or shortness of breath. Denies any dysuria or hematuria. ROS: as above PHYSICAL EXAM: Constitutional: Patient appears in no acute distress. HENT: Head: Normocephalic and atraumatic. Eyes: EOMI, PERRL Mouth/Throat: Mucous membranes moist. Neck: Trachea midline. Neck supple. Cardiovascular: RRR, No murmurs, rubs or gallops. Intact distal pulses. Pulmonary/Chest: No respiratory distress. Breath sounds clear and equal bilaterally. No wheezes or rales. Abdominal: Abdomen soft, no rebound or guarding. LLQ TTP Musculoskeletal: No edema, tenderness or deformity noted. Skin: Warm and dry. No rash, erythema, pallor or cyanosis Psychiatric: Appropriate mood and affect for situation. Neurological: Alert and keenly responsive. CN II-XII grossly intact, moving all extremities equally and fully. MDM: - Vitals signs showed hypertension - History obtained via patient. Patient presents with left-sided abdominal pain and vomiting. Patient reports that acutely at 10 AM he started having pain in his left mid abdomen and multiple episodes of vomiting. Reports been unable to keep anything down throughout the day today. He tried taking an oxycodone from a previous surgery to treat the pain, but he vomited it up. He has been unable to keep any solids or liquids down. Denies any fevers. Denies any history of abdominal surgeries. He is on a baby aspirin daily. Reports some blood-tinged vomitus earlier today. Denies any chest pain or shortness of breath. - Chronic conditions affecting care: CAD; HTN; HLD; PAD - Differential diagnoses include, but are not limited to: Ischemic colitis; diverticulitis; colitis; small bowel obstruction; electrolyte abnormality - Order placed for continuous cardiac monitoring. At this time, monitor showed rate of 75 bpm with normal sinus rhythm, per my interpretation. - External medical records reviewed. Primary care visit note dated 07/28/2023 was reviewed. Patient was seen for follow-up after closed hip fracture. - EKG reviewed by myself showed normal sinus rhythm. Rate 81 bpm. QTc prolonged at 424. No acute ischemic changes. - Laboratory workup interpreted by myself showed normal WBC; stable electrolytes; normal troponin; normal lipase; normal magnesium - CXR negative for pneumonia, per my interpretation - CT abdomen/pelvis with IV contrast negative for acute pathology - Patient given 2L NS, 5 mg IV compazine and 50 mg IV fentanyl for abdominal pain and nausea. On reassessment, he is still complaining of nausea and pain. He vomited again. Given an additional 50 mcg IV fentanyl. Unable to give the patient Zofran, secondary to his prolonged QT. - Unclear etiology for patient's abdominal pain at this time. His lactate level is negative, making ischemic colitis likely. However, he is still complaining of significant pain and has continued to vomit in the ER despite antiemetics. Will admit for continued IV hydration and further management. - Discussion was had with child care counselor about patient's case and need for admission - Hospitalist consulted for admission - [facility] and [facility]. ASSESSMENT AND PLAN: Diagnosis: intractable nausea and vomiting; abdominal pain Plan: admit Past Med/Surg History Medical History AAA (abdominal aortic aneurysm) S/p bypass around 2001 CAD (coronary artery disease) Moderate RCA disease per 2014 cardiac cath GERD (gastroesophageal reflux disease) Well controlled and stable History of depression History of kidney stones No current issues History of melanoma S/p Mohns surgery Hx of glaucoma No current issues - follows with eye doctor Hyperlipidemia Hypertension PAD (peripheral artery disease) Aorta to right femoral and left external iliac bypass S/p stenting of left external iliac artery in the past Left external iliac artery angioplasty 08/03/20 Known severe bilateral SFA disease--Mccook class 2-3 claudication symptoms, moderate arterial insufficiency by ADRIENNE; followed by Dr. Proctor Prostate cancer Spinal stenosis Chronic low back pain Surgical History H/O prostate biopsy H/O vascular surgery Left External Iliac Artery Angioplasty Jordan/BIRD History of abdominal aortic aneurysm repair Aorta to right femoral and left external iliac bypass 15 YEAR AGO AT [facility] History of cataract surgery RT/LEFT History of colonoscopy History of cystoscopy For urethral stricture History of Mohs micrographic surgery for skin cancer FACIAL AREA History of surgical procedure on eye proper using laser RT/LEFT (TO TREAT GLAUCOMA) History of tooth extraction S/P insertion of iliac artery stent ? 10 YEARS AGO AT [facility] S/P prostatectomy (02/12/21) 02/12/21 Dr. Johnnie Valderrama- Laparoscopic robotic assisted prostatectomy, urethral dilation, and extensive lysis of adhesions Family History Family/Other Cancer Father Diabetes Cancer Brain tumor Hypertension Daughter No problems noted. 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 Beliefs That Will Affect Care: None marital status: Current Living Situation: Alone current occupational status: retired How many Children do You have: 1 Feels Safe at Home: Yes Childhood Exposure to Second-Hand Smoke: Yes Diet: regular caffeine: Yes (coffee) Dental Care, Regularly: No Physical Activity Frequency: Daily Seatbelt Use: always Sunscreen Use: Yes Assistive Devices: None Allergies Allergies Allergy/AdvReac Type Severity Reaction Status Date / Time Sulfa (Sulfonamide Allergy Intermediate RASH/HIVES Verified 07/28/23 11:49 Antibiotics) codeine AdvReac Mild UPSETS Verified 07/28/23 11:49 STOMACH - NAUSEA wool AdvReac Mild ITCHING Verified 07/28/23 11:49 Home Meds Home Medications Medication Instructions Recorded Confirmed nitroglycerin 0.4 mg sublingual 0.4 mg sublingual Q5M PRN Chest 09/27/19 09/21/23 tablet Pain #25 tabs ketoconazole 2 % shampoo 1 applic topical UD 07/13/23 09/21/23 aspirin 81 mg tablet,delayed 81 mg PO BID 07/27/23 09/21/23 release doxepin 25 mg capsule 25 mg PO HS PRN insomnia 09/21/23 09/21/23 ferrous sulfate 142 mg (45 mg 142 mg PO QAM 09/21/23 09/21/23 iron) tablet,extended release Previous Rx's Medication Instructions Recorded amlodipine 2.5 mg tablet 2.5 mg PO DAILY #90 tabs 03/27/23 escitalopram oxalate 20 mg tablet 20 mg PO DAILY #90 tabs 03/27/23 omeprazole 40 mg capsule,delayed 40 mg PO DAILY #90 caps 06/09/23 release simvastatin 80 mg tablet 80 mg PO DAILY #90 tabs 06/26/23 cholecalciferol (vitamin D3) 1,250 1,250 mcg PO .WEEKLY 13 weeks #13 07/28/23 mcg (50,000 unit) tablet tabs oxycodone 5 mg tablet 5 mg PO Q6H PRN pain #30 tabs 09/03/23 Results & Data (ED) Vital Signs Vital Signs - 24 hr 09/21/23 18:26 09/21/23 21:15 09/21/23 21:23 Temperature 36.4 C L Temperature Source Temporal Artery Scan Pulse Rate 83 69 Pulse Rate [Bilateral Apical] 75 Respiratory Rate 18 20 Respiratory Effort / Characteristics Non-Labored Spontaneous Non-Labored Respiratory Depth Normal Normal Respiratory Pattern Regular Blood Pressure 136/84 Blood Pressure [Left Arm] 137/64 Blood Pressure Mean 101 Blood Pressure Mean [Left Arm] 88 Blood Pressure Position Sitting Pulse Oximetry 98 99 Oxygen Delivery Method Room Air Room Air Sepsis Recent Fever Within 48 Hours No Sepsis New/Unexplained Change in Mental Status N/A Sepsis Action Taken by Nursing No Action Required 09/21/23 21:23 09/21/23 21:48 09/21/23 22:17 Temperature Temperature Source Pulse Rate Pulse Rate [Bilateral Apical] 69 70 Respiratory Rate 20 20 Respiratory Effort / Characteristics Respiratory Depth Respiratory Pattern Blood Pressure Blood Pressure [Left Arm] 160/83 H 158/83 H Blood Pressure Mean Blood Pressure Mean [Left Arm] 108 108 Blood Pressure Position Pulse Oximetry 99 99 100 Oxygen Delivery Method Room Air Room Air Room Air Sepsis Recent Fever Within 48 Hours Sepsis New/Unexplained Change in Mental Status Sepsis Action Taken by Nursing 09/21/23 23:29 09/22/23 00:55 09/22/23 01:20 Temperature Temperature Source Pulse Rate 74 Pulse Rate [Bilateral Apical] 63 69 Respiratory Rate 20 20 Respiratory Effort / Characteristics Respiratory Depth Respiratory Pattern Blood Pressure Blood Pressure [Left Arm] 157/75 H 124/70 Blood Pressure Mean Blood Pressure Mean [Left Arm] 102 88 Blood Pressure Position Pulse Oximetry 100 97 Oxygen Delivery Method Room Air Room Air Sepsis Recent Fever Within 48 Hours Sepsis New/Unexplained Change in Mental Status Sepsis Action Taken by Nursing Laboratory Data 09/21/23 19:03 09/21/23 19:03 Lab Results 09/21/23 09/21/23 09/21/23 Range/Units 19:03 22:10 23:55 WBC 10.53 (4.8-10.8) K/ul RBC 4.31 L (4.70-6.10) M/uL Hgb 14.5 (14.0-18.0) g/dl Hct 42.8 (42.0-52.0) % MCV 99.3 (80.0-100.0) fL MCH 33.6 (25.0-34.0) pg MCHC 33.9 (32.0-36.0) g/dL RDW Std Deviation 54.2 H (36.4-46.3) fL RDW Coeff of Cedrick 14.6 H (11.5-14.5) % Plt Count 249 (130-400) K/uL MPV 9.6 (9.4-12.4) fL Immature Gran % (Auto) 0.8 % Neut % (Auto) 89.0 % Lymph % (Auto) 6.1 % Stanley % (Auto) 3.9 % Eos % (Auto) 0.0 % Baso % (Auto) 0.2 % Neut # (Auto) 9.38 H (1.40-6.50) K/uL Lymph # (Auto) 0.64 L (1.20-3.40) K/uL Stanley # (Auto) 0.41 (0.11-0.59) K/uL Eos # (Auto) 0.00 (0.00-0.50) K/uL Baso # (Auto) 0.02 (0.00-0.20) K/uL Immature Gran # (Auto) 0.08 (0.01-0.20) K/uL PT 10.8 (9.0-12.0) Seconds INR 1.0 (0.9-1.1) APTT 21.4 (21.0-31.0) Seconds PTT Ratio 0.8 Sodium 135 L (136-145) mmol/L Potassium 4.5 (3.5-5.1) mmol/L Chloride 101 (98-107) mmol/L Carbon Dioxide 26 (21-32) mmol/L Anion Gap 8 (3-11) BUN 23 (6-23) mg/dl Creatinine 0.72 (0.6-1.4) mg/dl Est Cr Clr Drug Dosing 62.3 ml/min Est GFR ( Amer) 105.8 ml/min Est GFR (Non-Af Amer) 91.3 ml/min BUN/Creatinine Ratio 31.9 H (10-20) Glucose 130 H (70-99(Fasting)) mg/dl Lactate 1.1 (0.4-2.0) mmol/L Calcium 9.7 (8.6-10.3) mg/dl Magnesium 1.7 (1.7-2.4) mg/dl Total Bilirubin 0.6 (0.2-1.0) mg/dl AST 18 (13-39) U/L ALT 15 (7-52) U/L Alkaline Phosphatase 71 (34-104) U/L Troponin I High Sens 3.1 3.5 (0-20) pg/ml Total Protein 7.1 (6.0-8.3) gm/dl Albumin 4.3 (3.4-5.0) gm/dl Globulin 2.8 (2.5-4.0) gm/dl Albumin/Globulin Ratio 1.5 (0.9-2) Lipase 8 L (11-82) U/L Urine Color Yellow Urine Appearance Clear (Clear) Urine pH 5.5 (4.5-7.5) Ur Specific [place] > 1.045 H (1.000-1.030) Urine Protein Negative (Negative) Urine Glucose (UA) Negative (Negative) Urine Ketones 1+ H (Negative) Urine Blood Negative (Negative) Urine Nitrite Negative (Negative) Urine Bilirubin Negative (Negative) Urine Urobilinogen Negative (Negative) Ur Leukocyte Esterase Negative (Negative) Blood Type O Positive Antibody Screen NEGATIVE Administered Medications Sodium Chloride (Nss) 1,000 mls @ 999 mls/hr IV .Q1H1M ONE Stop: 09/22/23 02:13 Last Admin: 09/22/23 01:24 Dose: 999 mls/hr Documented By: SELINA Discontinued Medications Fentanyl Citrate (Fentanyl Citrate Pf 100 Mcg/2 Ml Vial) 50 mcg IV NOW STA Stop: 09/21/23 22:08 Last Admin: 09/21/23 22:15 Dose: 50 mcg Documented By: SELINA Fentanyl Citrate (Fentanyl Citrate Pf 100 Mcg/2 Ml Vial) 50 mcg IV NOW STA Stop: 09/22/23 01:14 Last Admin: 09/22/23 01:25 Dose: 50 mcg Documented By: SELINA Sodium Chloride (Nss) 1,000 mls @ 999 mls/hr IV .Q1H1M ONE Stop: 09/21/23 23:07 Last Infusion: 09/21/23 23:20 Dose: Infused Documented By: Admin: 09/21/23 22:15 Dose: 999 mls/hr Documented By: SELINA Prochlorperazine (Compazine) 1 mls @ 1 mls/min IV ONE ONE Stop: 09/21/23 22:08 Last Admin: 09/21/23 22:16 Dose: 1 mls/min Documented By: SELINA Ioversol (Optiray 320 100ml) 92 ml IV ONCE ONE Stop: 09/21/23 21:38 Last Admin: 09/21/23 21:37 Dose: 92 ml Documented By: CINDY Imaging Data Radiologist's Impression: Abdomen/Pelvis CT 09/21/23 18:28 Exam(s): CT ABDOMEN + PELVIS With Contrast IV Amt: 92 ml optiray 320 EXAM: CT Abdomen and Pelvis With Intravenous Contrast CLINICAL HISTORY: Reason for exam: Vomiting blood, abd pain. TECHNIQUE: Axial computed tomography images of the abdomen and pelvis with intravenous contrast. CTDI is 6.66 mGy and DLP is 273.42 mGy-cm. Automated exposure control was utilized for the study. A dose lowering technique was utilized adhering to the principles of ALARA. CONTRAST: Patient received 92 ml optiray 320 of IV contrast COMPARISON: No relevant prior studies available. FINDINGS: Lung bases: Atelectasis is at the LEFT lung base. ABDOMEN: Liver: Unremarkable. No mass. Gallbladder and bile ducts: Unremarkable. No calcified stones. No ductal dilation. Pancreas: Unremarkable. No mass. No ductal dilation. Spleen: Unremarkable. No splenomegaly. Adrenals: Unremarkable. No mass. Kidneys and ureters: Renal cysts measuring up to 1.9 cm in the RIGHT kidney. No hydronephrosis. Stomach and bowel: Dilated small bowel measuring up to 3 cm, concerning for enteritis/ileus. No definite bowel obstruction. Diverticulosis, without acute diverticulitis. No small bowel obstruction. No free intraperitoneal air. PELVIS: Appendix: No findings to suggest acute appendicitis. Bladder: Unremarkable. No mass. Reproductive: Unremarkable as visualized. ABDOMEN and PELVIS: Intraperitoneal space: Unremarkable. No free air. No significant fluid collection. Bones/joints: Degenerative changes of the spine. LEFT hip ORIF. Soft tissues: Unremarkable. Vasculature: Atherosclerotic changes of the aorta. Postsurgical changes to the aorta with LEFT common iliac stent graft. No abdominal aortic aneurysm. Lymph nodes: Unremarkable. No enlarged lymph nodes. IMPRESSION: 1. Dilated small bowel measuring up to 3 cm, concerning for enteritis/ileus. No definite bowel obstruction. 2. Diverticulosis, without acute diverticulitis. No small bowel obstruction. No free intraperitoneal air. Electronically signed by: Steve Lamar MD 09/21/23 22:59 PM Discharge Plan Visit Data Chief Complaint: Abdominal Pain Stated Complaint: ABD PAIN ED Provider: Suni Luis Discharge Problem: Intractable abdominal pain, Intractable nausea and vomiting Forms Stand Alone Forms: My [employer] Prescriptions Prescriptions: No Action escitalopram oxalate 20 mg tablet 20 mg PO DAILY Qty: 90 1RF amlodipine 2.5 mg tablet 2.5 mg PO DAILY Qty: 90 3RF omeprazole 40 mg capsule,delayed release(DR/EC) 40 mg PO DAILY Qty: 90 1RF Patient Comments: QAM simvastatin 80 mg tablet 80 mg PO DAILY Qty: 90 1RF Patient Comments: HS aspirin 81 mg tablet,delayed release (DR/EC) 81 mg PO BID oxycodone 5 mg tablet 5 mg PO Q6H PRN (Reason: pain) Qty: 30 0RF Rx Instructions: 1 tab for moderate pain 2 tab for severe pain [facility] care 07/24/23 nitroglycerin 0.4 mg tablet, sublingual 0.4 mg SL Q5M PRN (Reason: Chest Pain) Qty: 25 cholecalciferol (vitamin D3) 1,250 mcg (50,000 unit) tablet 1,250 mcg PO .WEEKLY 91 Days Qty: 13 0RF ketoconazole 2 % shampoo 1 applic TOPICAL UD doxepin 25 mg capsule 25 mg PO HS PRN (Reason: insomnia) Slow Fe 142 mg (45 mg iron) Tablet Extended Release 142 mg PO QAM Referrals Referrals: Nitza aBca MD [Primary Care Provider] -
[2023-09-21] MEDS ORDERED: SODIUM CHLORIDE 0.9% 1,000 ML IV ONE (22:07)
[2023-09-21] MEDS ORDERED: fentaNYL citrate PF 100 MCG/2 ML VIAL IV STA (22:07)
[2023-09-21] MEDS ORDERED: PROCHLORPERAZINE 1 ML IV ONE (22:07)
--- NOTE | 2023-09-21 22:59 | CT Scan Report ---
Exam(s): CT ABDOMEN + PELVIS With Contrast IV Amt: 92 ml optiray 320 EXAM: CT Abdomen and Pelvis With Intravenous Contrast CLINICAL HISTORY: Reason for exam: Vomiting blood, abd pain. TECHNIQUE: Axial computed tomography images of the abdomen and pelvis with intravenous contrast. CTDI is 6.66 mGy and DLP is 273.42 mGy-cm. Automated exposure control was utilized for the study. A dose lowering technique was utilized adhering to the principles of ALARA. CONTRAST: Patient received 92 ml optiray 320 of IV contrast COMPARISON: No relevant prior studies available. FINDINGS: Lung bases: Atelectasis is at the LEFT lung base. ABDOMEN: Liver: Unremarkable. No mass. Gallbladder and bile ducts: Unremarkable. No calcified stones. No ductal dilation. Pancreas: Unremarkable. No mass. No ductal dilation. Spleen: Unremarkable. No splenomegaly. Adrenals: Unremarkable. No mass. Kidneys and ureters: Renal cysts measuring up to 1.9 cm in the RIGHT kidney. No hydronephrosis. Stomach and bowel: Dilated small bowel measuring up to 3 cm, concerning for enteritis/ileus. No definite bowel obstruction. Diverticulosis, without acute diverticulitis. No small bowel obstruction. No free intraperitoneal air. PELVIS: Appendix: No findings to suggest acute appendicitis. Bladder: Unremarkable. No mass. Reproductive: Unremarkable as visualized. ABDOMEN and PELVIS: Intraperitoneal space: Unremarkable. No free air. No significant fluid collection. Bones/joints: Degenerative changes of the spine. LEFT hip ORIF. Soft tissues: Unremarkable. Vasculature: Atherosclerotic changes of the aorta. Postsurgical changes to the aorta with LEFT common iliac stent graft. No abdominal aortic aneurysm. Lymph nodes: Unremarkable. No enlarged lymph nodes. IMPRESSION: 1. Dilated small bowel measuring up to 3 cm, concerning for enteritis/ileus. No definite bowel obstruction. 2. Diverticulosis, without acute diverticulitis. No small bowel obstruction. No free intraperitoneal air. Electronically signed by: Steve Lamar MD 09/21/23 22:59 PM
[2023-09-22 00:06] LABS: Appearance Urine Clear (Clear); Bilirubin Urine Negative (Negative); Blood Urine Negative (Negative); Color Urine Yellow; Glucose Urine UA Negative (Negative); Ketones Urine 1+ (Negative); Leukocyte Esterase Urine Negative (Negative); Nitrite Urine Negative (Negative); Protein Urine Negative (Negative); Specific Gravity Urine > 1.045 (1.000-1.030); Urobilinogen Urine Negative (Negative); pH Urine 5.5 (4.5-7.5)
[2023-09-22] MEDS ORDERED: fentaNYL citrate PF 100 MCG/2 ML VIAL IV STA (01:13)
[2023-09-22] MEDS ORDERED: SODIUM CHLORIDE 0.9% 1,000 ML IV ONE (01:13)
[2023-09-22 01:32] LABS: Gastric Occult Blood Negative (Negative); pH Gastric Fluid 2
--- NOTE | 2023-09-22 02:01 | History & Physical Report ---
Date of Service September 22, 2023 Assessment & Plan (1) Intractable nausea and vomiting: Plan: Etiology uncertain. Patient with ongoing nausea, vomiting and left-sided abdominal pain. Possible obstruction. CT with some bowel dilation. Admit to medical IV hydration with LR at 125 mL/h x 1 L Compazine 5 mg IV every 6 hours as needed Morphine as needed for pain Protonix 40 mg p.o. daily KUB in the morning (2) Hyperlipidemia: Plan: Chronic. Stable. Continue simvastatin 80 mg p.o. daily (3) Hypertension: Plan: Chronic. Stable. Continue amlodipine 2.5 mg p.o. daily (4) CAD (coronary artery disease): Plan: Chronic. Continue aspirin 81 mg p.o. daily History of Present Illness Chief Complaint: Abdominal pain, nausea and vomiting Primary Care Provider: Nitza Baca MD Tr Colvin is a 73-year-old male with history of hypertension, hyperlipidemia, GERD presenting with acute onset of abdominal pain and vomiting. Patient reports that he woke up this morning at 0800 and felt his usual self. He took his morning medications. Around 10:00 he developed acute onset abdominal pain mostly in the left mid abdomen as well as nausea and multiple episodes of vomiting. He called the nurse line and was instructed to come to the ER. He reports vomiting at least 15 times. Patient reports some subjective fevers and chills as well as nausea, vomiting, abdominal pain and p.o. intolerance. Unable to tolerate p.o. intake. Is passing flatus. Had a normal bowel movement this morning. Denies abdominal distention Allergies Allergy/AdvReac Type Severity Reaction Status Date / Time Sulfa (Sulfonamide Allergy Intermediate RASH/HIVES Verified 07/28/23 11:49 Antibiotics) codeine AdvReac Mild UPSETS Verified 07/28/23 11:49 STOMACH - NAUSEA wool AdvReac Mild ITCHING Verified 07/28/23 11:49 Home Medications Medication Instructions Recorded Confirmed Type nitroglycerin 0.4 mg sublingual 0.4 mg sublingual Q5M PRN Chest 09/27/19 History tablet Pain #25 tabs amlodipine 2.5 mg tablet 2.5 mg PO DAILY #90 tabs 03/27/23 09/21/23 Rx escitalopram oxalate 20 mg tablet 20 mg PO DAILY #90 tabs 05/19/23 11/13/23 Rx omeprazole 40 mg capsule,delayed 40 mg PO DAILY #90 caps 06/09/23 09/21/23 Rx release simvastatin 80 mg tablet 80 mg PO DAILY #90 tabs 06/26/23 09/21/23 Rx ketoconazole 2 % shampoo 1 applic topical UD 07/13/23 09/21/23 History aspirin 81 mg tablet,delayed 81 mg PO BID 07/27/23 09/21/23 History release cholecalciferol (vitamin D3) 1,250 1,250 mcg PO .WEEKLY 13 weeks #13 07/28/23 09/21/23 Rx mcg (50,000 unit) tablet tabs oxycodone 5 mg tablet 5 mg PO Q6H PRN pain #30 tabs 09/03/23 09/21/23 Rx doxepin 25 mg capsule 25 mg PO HS PRN insomnia 09/21/23 09/21/23 History ferrous sulfate 142 mg (45 mg 142 mg PO QAM 09/21/23 09/21/23 History iron) tablet,extended release Past Med/Surg History Medical History AAA (abdominal aortic aneurysm) S/p bypass around 2001 Spinal stenosis Chronic low back pain Prostate cancer History of melanoma S/p Mohns surgery Hx of glaucoma No current issues - follows with eye doctor History of depression History of kidney stones No current issues PAD (peripheral artery disease) Aorta to right femoral and left external iliac bypass S/p stenting of left external iliac artery in the past Left external iliac artery angioplasty 08/03/20 Known severe bilateral SFA disease--Geary class 2-3 claudication symp toms, moderate arterial insufficiency by [facility]; followed by Dr. Proctor Hypertension Hyperlipidemia GERD (gastroesophageal reflux disease) Well controlled and stable CAD (coronary artery disease) Moderate RCA disease per 2013 cardiac cath Surgical History S/P prostatectomy (02/12/21) 02/12/21 Dr. Johnnie Valderrama- Laparoscopic robotic assisted prostatectomy, urethral dilation, and extensive lysis of adhesions S/P insertion of iliac artery stent ? 10 YEARS AGO AT [facility] History of colonoscopy H/O prostate biopsy History of tooth extraction History of cataract surgery RT/LEFT H/O vascular surgery Left External Iliac Artery Angioplasty BIRD History of surgical procedure on eye proper using laser RT/LEFT (TO TREAT GLAUCOMA) History of Mohs micrographic surgery for skin cancer FACIAL AREA History of cystoscopy For urethral stricture History of abdominal aortic aneurysm repair Aorta to right femoral and left external iliac bypass 15 YEAR AGO AT [facility] Family History Family/Other Cancer Father Diabetes Cancer Brain tumor Hypertension Daughter No problems noted. Mother Lupus Albino Other No family history of adverse response to anesthesia Denies family history of Ovarian cancer Prostate cancer Crohn's disease Myocardial infarction Breast cancer Colorectal cancer Social History Smoking Status: Current every day smoker Tobacco Type: Cigarettes Age Started Using Tobacco: 10; Cigarettes Per Day: 10 CIG DAILY; Second Hand Exposure: No; Do You Dip or Chew Tobacco: No; Hx Alcohol Use: Yes Alcohol type: beer Alcohol Intake Frequency: 2-3 x/Week Hx Substance Use: No Preferred Language: Guamanian Communication Ability: Effective Hearing Ability: Normal Sales Planner Required: No Beliefs That Will Affect Care: None marital status: Current Living Situation: Alone current occupational status: retired How many Children do You have: 1 Feels Safe at Home: Yes Childhood Exposure to Second-Hand Smoke: Yes Diet: regular caffeine: Yes (coffee) Dental Care, Regularly: No Physical Activity Frequency: Daily Seatbelt Use: always Sunscreen Use: Yes Assistive Devices: None Review of Systems Review of Systems: All systems reviewed & are unremarkable except as noted in HPI & below Physical Exam Physical Exam: General: patient resting comfortably, NAD, non-toxic in appearance, AA&O x 4 Skin: warm, dry, intact, no rashes or lesions HEENT: NC/AT, PERRL, EOMI, anicteric sclera, conjunctiva without injection, external ear normal to inspection and nontender, nares patent, moist mucus membranes, dentition intact, no oropharyngeal lesions, neck supple, trachea midline, no LAD, no thyromegaly, no JVD Heart: +S1/S2, regular, no m/r/g Lungs: equal air entry bilaterally, no rales/rhonchi/wheezes Abd: Hyperactive bowel sounds, abdomen soft, nondistended, diffusely tender most in left mid abdomen, no rebound/guarding/peritonitis Ext: warm, 2+ pulses in UE/LE bilaterally, no clubbing/cyanosis or edema Neuro: nonfocal, patient AA&O x 4, speech intact, no facial droop, moving all extremities on command with equal strength 5/5 Results & Data Results & Data Vital Signs (Past 12 Hours) Vital Signs Temp Pulse Pulse Resp BP BP Pulse Ox 09/22/23 01:20 74 09/22/23 00:55 69 20 124/70 97 09/21/23 23:29 63 20 157/75 H 100 09/21/23 22:17 70 20 158/83 H 100 09/21/23 21:48 69 20 160/83 H 99 09/21/23 21:23 99 09/21/23 21:23 75 20 137/64 99 09/21/23 21:15 69 09/21/23 18:26 36.4 C L 83 18 136/84 98 O2 Del Method 09/22/23 01:20 09/22/23 00:55 Room Air 09/21/23 23:29 Room Air 09/21/23 22:17 Room Air 09/21/23 21:48 Room Air 09/21/23 21:23 Room Air 09/21/23 21:23 Room Air 09/21/23 21:15 09/21/23 18:26 Room Air Laboratory Results Laboratory Results WBC 10.53 K/ul (4.8-10.8) 09/21/23 19:03 RBC 4.31 M/uL (4.70-6.10) L 09/21/23 19:03 Hgb 14.5 g/dl (14.0-18.0) 09/21/23 19:03 Hct 42.8 % (42.0-52.0) 09/21/23 19:03 MCV 99.3 fL (80.0-100.0) 09/21/23 19:03 MCH 33.6 pg (25.0-34.0) 09/21/23 19:03 MCHC 33.9 g/dL (32.0-36.0) 09/21/23 19:03 RDW Std Deviation 54.2 fL (36.4-46.3) H 09/21/23 19:03 RDW Coeff of [place] 14.6 % (11.5-14.5) H 09/21/23 19:03 Plt Count 249 K/uL (130-400) 09/21/23 19:03 MPV 9.6 fL (9.4-12.4) 09/21/23 19:03 Immature Gran % (Auto) 0.8 % 09/21/23 19:03 Neut % (Auto) 89.0 % 09/21/23 19:03 Lymph % (Auto) 6.1 % 09/21/23 19:03 [place] % (Auto) 3.9 % 09/21/23 19:03 Eos % (Auto) 0.0 % 09/21/23 19:03 Baso % (Auto) 0.2 % 09/21/23 19:03 Neut # (Auto) 9.38 K/uL (1.40-6.50) H 09/21/23 19:03 Lymph # (Auto) 0.64 K/uL (1.20-3.40) L 09/21/23 19:03 [place] # (Auto) 0.41 K/uL (0.11-0.59) 09/21/23 19:03 Eos # (Auto) 0.00 K/uL (0.00-0.50) 09/21/23 19:03 Baso # (Auto) 0.02 K/uL (0.00-0.20) 09/21/23 19:03 Immature Gran # (Auto) 0.08 K/uL (0.01-0.20) 09/21/23 19:03 PT 10.8 Seconds (9.0-12.0) 09/21/23 19:03 INR 1.0 (0.9-1.1) 09/21/23 19:03 APTT 21.4 Seconds (21.0-31.0) 09/21/23 19:03 PTT Ratio 0.8 09/21/23 19:03 Sodium 135 mmol/L (136-145) L 09/21/23 19:03 Potassium 4.5 mmol/L (3.5-5.1) 09/21/23 19:03 Chloride 101 mmol/L (98-107) 09/21/23 19:03 Carbon Dioxide 26 mmol/L (21-32) 09/21/23 19:03 Anion Gap 8 (3-11) 09/21/23 19:03 BUN 23 mg/dl (6-23) 09/21/23 19:03 Creatinine 0.72 mg/dl (0.6-1.4) 09/21/23 19:03 Est Cr Clr Drug Dosing 62.3 ml/min 09/21/23 19:03 Est GFR ( Amer) 105.8 ml/min 09/21/23 19:03 Est GFR (Non-Af Amer) 91.3 ml/min 09/21/23 19:03 BUN/Creatinine Ratio 31.9 (10-20) H 09/21/23 19:03 Glucose 130 mg/dl (70-99(Fasting)) H 09/21/23 19:03 Lactate 1.1 mmol/L (0.4-2.0) 09/21/23 22:10 Calcium 9.7 mg/dl (8.6-10.3) 09/21/23 19:03 Magnesium 1.7 mg/dl (1.7-2.4) 09/21/23 19:03 Total Bilirubin 0.6 mg/dl (0.2-1.0) 09/21/23 19:03 AST 18 U/L (13-39) 09/21/23 19:03 ALT 15 U/L (7-52) 09/21/23 19:03 Alkaline Phosphatase 71 U/L (34-104) 09/21/23 19:03 Troponin I High Sens 3.5 pg/ml (0-20) 09/21/23 22:10 Total Protein 7.1 gm/dl (6.0-8.3) 09/21/23 19:03 Albumin 4.3 gm/dl (3.4-5.0) 09/21/23 19:03 Globulin 2.8 gm/dl (2.5-4.0) 09/21/23 19:03 Albumin/Globulin Ratio 1.5 (0.9-2) 09/21/23 19:03 Lipase 8 U/L (11-82) L 09/21/23 19:03 Urine Color Yellow 09/21/23 23:55 Urine Appearance Clear (Clear) 09/21/23 23:55 Urine pH 5.5 (4.5-7.5) 09/21/23 23:55 Ur Specific [place] > 1.045 (1.000-1.030) H 09/21/23 23:55 Urine Protein Negative (Negative) 09/21/23 23:55 Urine Glucose (UA) Negative (Negative) 09/21/23 23:55 Urine Ketones 1+ (Negative) H 09/21/23 23:55 Urine Blood Negative (Negative) 09/21/23 23:55 Urine Nitrite Negative (Negative) 09/21/23 23:55 Urine Bilirubin Negative (Negative) 09/21/23 23:55 Urine Urobilinogen Negative (Negative) 09/21/23 23:55 Ur Leukocyte Esterase Negative (Negative) 09/21/23 23:55 Gastric Fluid pH 2 09/22/23 01:00 Gastric Occult Blood Negative (Negative) 09/22/23 01:00 SARS-CoV-2 (PCR) NEGATIVE (Negative) 09/22/23 01:30 Influenza Type A (PCR) Negative (Neg) 09/22/23 01:30 Influenza Type B (PCR) Negative (Neg) 09/22/23 01:30 RSV (RT-PCR) Negative (Neg) 09/22/23 01:30 Blood Type O Positive 09/21/23 19:03 Antibody Screen NEGATIVE 09/21/23 19:03 Impressions Abdomen/Pelvis CT 09/21/23 18:28 Exam(s): CT ABDOMEN + PELVIS With Contrast IV Amt: 92 ml optiray 320 EXAM: CT Abdomen and Pelvis With Intravenous Contrast CLINICAL HISTORY: Reason for exam: Vomiting blood, abd pain. TECHNIQUE: Axial computed tomography images of the abdomen and pelvis with intravenous contrast. CTDI is 6.66 mGy and DLP is 273.42 mGy-cm. Automated exposure control was utilized for the study. A dose lowering technique was utilized adhering to the principles of ALARA. CONTRAST: Patient received 92 ml optiray 320 of IV contrast COMPARISON: No relevant prior studies available. FINDINGS: Lung bases: Atelectasis is at the LEFT lung base. ABDOMEN: Liver: Unremarkable. No mass. Gallbladder and bile ducts: Unremarkable. No calcified stones. No ductal dilation. Pancreas: Unremarkable. No mass. No ductal dilation. Spleen: Unremarkable. No splenomegaly. Adrenals: Unremarkable. No mass. Kidneys and ureters: Renal cysts measuring up to 1.9 cm in the RIGHT kidney. No hydronephrosis. Stomach and bowel: Dilated small bowel measuring up to 3 cm, concerning for enteritis/ileus. No definite bowel obstruction. Diverticulosis, without acute diverticulitis. No small bowel obstruction. No free intraperitoneal air. PELVIS: Appendix: No findings to suggest acute appendicitis. Bladder: Unremarkable. No mass. Reproductive: Unremarkable as visualized. ABDOMEN and PELVIS: Intraperitoneal space: Unremarkable. No free air. No significant fluid collection. Bones/joints: Degenerative changes of the spine. LEFT hip ORIF. Soft tissues: Unremarkable. Vasculature: Atherosclerotic changes of the aorta. Postsurgical changes to the aorta with LEFT common iliac stent graft. No abdominal aortic aneurysm. Lymph nodes: Unremarkable. No enlarged lymph nodes. IMPRESSION: 1. Dilated small bowel measuring up to 3 cm, concerning for enteritis/ileus. No definite bowel obstruction. 2. Diverticulosis, without acute diverticulitis. No small bowel obstruction. No free intraperitoneal air. Electronically signed by: Steve Lamar MD 09/21/23 22:59 PM PG Care Time/CCT Total # of Minutes Spent Total Time Spent with Patient: Total time spent is greater than 50% in coordination of care (as documented) at patient's floor/unit and/or counseling patient: Coding Level of Care Code 91413 INT INP/OBS CARE 2/55MIN Diagnoses Intractable nausea and vomiting R11.2 Hyperlipidemia E78.5 Hypertension I10 CAD (coronary artery disease) I25.10
[2023-09-22 02:14] LABS: Influenza A virus by PCR Negative (Neg); Influenza B virus by PCR Negative (Neg); RSV by PCR Negative (Neg); SARS CoV2 RNA(COVID-19) Ceph NEGATIVE (Negative)
[2023-09-22] MEDS ORDERED: DOXEPIN HCL 25 MG CAPSULE PO PRN (04:09)
[2023-09-22] MEDS ORDERED: MoRPHine SULFATE 2 MG/ML CARP IV PRN (04:09)
[2023-09-22] MEDS ORDERED: LACTATED RINGER'S 1,000 ML IV SCH (04:09)
[2023-09-22] MEDS ORDERED: ACETAMINOPHEN 325 MG TAB PO PRN (04:09)
[2023-09-22] MEDS: MoRPHine SULFATE 4 MG/ML 1 ML CARP\\VIAL IV PRN ×3 (04:47→19:32)
[2023-09-22] MEDS: PROCHLORPERAZINE 5 MG in SYRINGE 4 ML IV PRN ×2 (05:17→13:15)
--- NOTE | 2023-09-22 07:21 | XRay Report ---
XR chest 1V portable HISTORY: 73 years-old Male Vomiting acute chest pain with nausea and vomiting COMPARISON: 07/14/2023 TECHNIQUE: PA view of the chest FINDINGS: Cardiomediastinal and hilar silhouettes are within normal limits. Emphysema with chronic interstitial coarsening. No pneumothorax, pleural effusion, airspace consolidation or pulmonary edema. Mild lumba r levoscoliosis. Degenerative changes of the shoulders and spine. IMPRESSION: Emphysema without acute process of the chest. ACT 112: Negative or not required by law. The above report was generated using voice recognition software. It may contain grammatical, syntax o r spelling errors. Electronically signed by: Michael Broderick M.D. 09/22/2023 7:19 AM
[2023-09-22] MEDS: amLODIPine BESYLATE 5 MG TAB PO SCH (08:19)
[2023-09-22] MEDS: ASPIRIN 81 MG ECTAB PO SCH (08:20)
[2023-09-22] MEDS: SIMVASTATIN 80 MG TAB PO SCH (08:20)
[2023-09-22] MEDS: PANTOprazole 40 MG TAB PO SCH (08:20)
[2023-09-22] MEDS: ESCITALOPRAM OXALATE 20 MG TAB PO SCH (08:20)
[2023-09-22] MEDS ORDERED: ASPIRIN 81 MG ECTAB PO SCH (09:00)
--- NOTE | 2023-09-22 09:52 | XRay Report ---
KUB HISTORY: Acute generalized abdominal pain with nausea assess bowel loops for possible obstruction COMPARISON: CT 09/21/2023 FINDINGS: Nonobstructive bowel gas pattern. Air-filled loops of small bowel are noted with a single m ildly dilated loops in the left midabdomen measuring 3.9 cm. Contrast noted within the urinary bladde r lumen. Mild to moderate colonic fecal retention. Left iliac stent graft. Small bilateral renal emani culi redemonstrated measuring up to approximately 4 mm without nephrolithiasis. No pneumoperitoneum o r pneumatosis. Lumbar levoscoliosis. Partially imaged orthopedic hardware at the left proximal femur. No fracture. IMPRESSION: 1. No evidence of a high-grade small bowel obstruction. Mildly dilated loops of small bowel in the lo wer abdomen may represent an enteritis versus low-grade small bowel obstruction. Continued follow-up recommended. 2. Bilateral nephrolithiasis. ACT 112: Negative or not required by law. The above report was generated using voice recognition software. It may contain grammatical, syntax o r spelling errors. Electronically signed by: Michael Broderick M.D. 09/22/2023 9:50 AM
--- NOTE | 2023-09-22 10:32 | Electrocardiogram Report ---
Test Reason : Blood Pressure : / mmHG Vent. Rate : 081 BPM Atrial Rate : 081 BPM P-R Int : 204 ms QRS Dur : 086 ms QT Int : 424 ms P-R-T Axes : 089 085 077 degrees QTc Int : 492 ms Poor data quality, interpretation may be adversely affected Normal sinus rhythm Prolonged QT Poor R wave progression, consider anterior DE vs. lead placement vs. LVH Abnormal ECG When compared with ECG of 14-JUL-2023 10:42, QT has lengthened Confirmed by Lui Tolentino ([id number]) on 09/22/2023 10:32:16 AM Referred By: REFERRED SELF Confirmed By:Lui Tolentino
[2023-09-23] MEDS: MoRPHine SULFATE 4 MG/ML 1 ML CARP\\VIAL IV PRN ×4 (06:17→21:20)
[2023-09-23 06:40] LABS: Hematocrit (blood only) 37.9 % (42.0-52.0); Hemoglobin 13.3 g/dl (14.0-18.0); Mean Corpuscular Hemoglobin 33.4 pg (25.0-34.0); Mean Corpuscular Hgb Conc 35.1 g/dL (32.0-36.0); Mean Corpuscular Volume 95.2 fL (80.0-100.0); Mean Platelet Volume 9.7 fL (9.4-12.4); Platelet Count 214 K/uL (130-400); RDW Coefficient of Variation 14.6 % (11.5-14.5); RDW Standard Deviation 51.7 fL (36.4-46.3); Red Blood Count 3.98 M/uL (4.70-6.10); White Blood Count 6.18 K/ul (4.8-10.8)
--- NOTE | 2023-09-23 07:16 | Hospitalist Progress Note ---
Date of Service September 23, 2023 Assessment & Plan (1) Intractable nausea and vomiting: Plan: #Abdominal Pain #Nausea and Vomiting Etiology continues to be unclear. CT with bowel dilation, no obvious cause. KUB without obvious etiology. No leukocytosis, transaminitis, or UA with signs of infection. Patient with continued pain requiring IV narcotics for pain control. Is tolerating PO. Nausea/vomiting mostly resolved. Would repeat CT with oral and IV contrast as pain should have improved. Next steps as indicated Compazine 5 mg IV Q6H PRN Protonix 40 mg PO daily Morphine as needed for pain #HLD Chronic. Stable. Continue simvastatin 80 mg p.o. daily #HTN Chronic. Stable. Continue amlodipine 2.5 mg p.o. daily #CAD Chronic. Continue aspirin 81 mg p.o. daily Code status: full DVT ppx: low risk, ambulation, if hospital stay extends would start Lovenox FENGI: GI soft Dispo: med/surg (2) Hyperlipidemia: (3) Hypertension: (4) CAD (coronary artery disease): (5) Intractable abdominal pain: Admission and Anticipated Discharge Date Admission Date: September 22, 2023 Supervising Physician Co-Signing Physician Notes Resident Physician Supervision Note: I independently interviewed and examined the patient and verified the ellis history and physical, reviewed labs and image studies and agree with resident findings and care plan. Concern of SBO possibly sec to enteritis - symptoms improved in am but abdominal pain/nausea recurred with advancing diet. check CT abdomen/pelvis with IV and oral contrast. Subjective Seen at bedside this AM. Reports continued pain. Has required IV medicine. Is tolerating PO. Minimal nausea/vomiting at this time. Physical Exam 2 Physical Exam: General: patient resting comfortably, NAD, non-toxic in appearance Skin: warm, dry, intact, no rashes or lesions HEENT: PERRL, EOMI, anicteric sclera, conjunctiva without injection Heart: +S1/S2, regular, no m/r/g Lungs: CTA b/l, no rales/rhonchi/wheezes Abd: normal bowel sounds, abdomen soft, nondistended, tenderness palpation. No guarding and rebound tenderness Ext: 2+ pulses in LE bilaterally, no edema Results & Data Results & Data Vital Signs (Past 12 Hours) Vital Signs Temp Pulse Resp BP Pulse Ox O2 Del Method 09/22/23 19:35 Room Air 09/22/23 19:28 36.6 C 71 18 132/80 99 Room Air Laboratory Results 09/23/23 06:10 09/23/23 06:10 Resident Activity Tracking Resident Involvement: Resident Care Provided Care Provided: Adult Hospital Medicine
[2023-09-23] MEDS: SIMVASTATIN 80 MG TAB PO SCH (08:19)
[2023-09-23] MEDS: PANTOprazole 40 MG TAB PO SCH (08:19)
[2023-09-23] MEDS: amLODIPine BESYLATE 5 MG TAB PO SCH (08:19)
[2023-09-23] MEDS: ASPIRIN 81 MG ECTAB PO SCH (08:19)
[2023-09-23] MEDS: ESCITALOPRAM OXALATE 20 MG TAB PO SCH (08:19)
[2023-09-23 08:37] LABS: BUN Creatinine Ratio 22.9 (10-20); Calcium 9.2 mg/dl (8.6-10.3); Creatinine Clr Calc Pharmacy 70.3 ml/min; Est GFR (Non-African American) 92.3 ml/min; Potassium 3.9 mmol/L (3.5-5.1)
[2023-09-23] MEDS ORDERED: KETOROLAC TROMETHAMINE 15 MG/ML VIAL IV PRN (14:58)
[2023-09-23] MEDS ORDERED: OPTIRAY 320 100ml IV ONE (17:24)
--- NOTE | 2023-09-23 18:24 | CT Scan Report ---
CT abdomen oral and IV con CLINICAL HISTORY: abdominal pain TECHNIQUE: Helical axial images of the abdomen were obtained. Automated dose lowering techniques and/ or adjustment according to patient size were utilized for this exam. This exam was performed with in travenous contrast. CT DOSE: 213.9 mGy.cm Comparison: Comparison is made to CT abdomen pelvis 09/21/2023 FINDINGS: Lower chest: Bronchial wall thickening and emphysema are seen. Liver: Unremarkable. No focal lesions are seen. Gallbladder and biliary tree: No calcified gallstones. Normal caliber wall. No intra- or extrahepatic biliary ductal dilation. Pancreas: Unremarkable, no focal lesions. Spleen: Unremarkable. Adrenals: Unremarkable. Kidneys and ureters: Right renal cyst is seen. Bowel: Air-fluid levels and distention of the small bowel measuring up to 41 mm in diameter. Moderate stool burden is seen in the colon where visualized. No pneumatosis intestinalis is seen. Lymph nodes Retroperitoneal: Unremarkable. Mesenteric: Unremarkable. Peritoneum: Small ascites is seen. Vessels: Atherosclerotic calcifications are seen. Abdominal wall: Unremarkable. Bones: Degenerative changes in the visualized spine. Old fracture of the right 11th rib. IMPRESSION: Interval development of small bowel obstruction, likely partial/early. No pneumatosis. Mild ascites i s noted. ACT 112: Negative or not required by law. Electronically signed by: Lion Woods M.D. 09/23/2023 6:23 PM
[2023-09-23] MEDS: POLYETHYLENE (MIRALAX) 17 GM PACK PO SCH (20:33)
[2023-09-23] MEDS ORDERED: ACETAMINOPHEN 1,000 MG/100 ML VIAL IV PRN (20:44)
[2023-09-23] MEDS ORDERED: MELATONIN 3 MG TAB PO PRN (20:46)
[2023-09-24] MEDS ORDERED: diphenhydrAMINE 50 MG/ML VIAL IV STA (00:35)
[2023-09-24] MEDS: MoRPHine SULFATE 4 MG/ML 1 ML CARP\\VIAL IV PRN ×2 (04:27→07:52)
[2023-09-24] MEDS: PROCHLORPERAZINE 5 MG in SYRINGE 4 ML IV PRN (08:04)
[2023-09-24 08:06] LABS: White Blood Count 1.38 K/ul (4.8-10.8)
[2023-09-24 08:07] LABS: Hematocrit (blood only) 38.7 % (42.0-52.0); Hemoglobin 13.7 g/dl (14.0-18.0); Mean Corpuscular Hemoglobin 33.3 pg (25.0-34.0); Mean Corpuscular Hgb Conc 35.4 g/dL (32.0-36.0); Mean Corpuscular Volume 94.2 fL (80.0-100.0); Mean Platelet Volume 9.9 fL (9.4-12.4); Platelet Count 228 K/uL (130-400); RDW Coefficient of Variation 14.5 % (11.5-14.5); RDW Standard Deviation 50.4 fL (36.4-46.3); Red Blood Count 4.11 M/uL (4.70-6.10)
--- NOTE | 2023-09-24 08:19 | Hospitalist Progress Note ---
Date of Service September 24, 2023 Assessment & Plan (1) Intractable nausea and vomiting: Plan: #Acute Hypoxic Respiratory Failure Etiology unclear. CXR without consolidation or signs of congestion. Fluid status appears euvolemic. Possibly in the setting of increase abdominal distension and subsequent shallow breathing. Does not appear to be medication induced hypoventilation as patient tachypneic. Improvement with BiPAP, but patient did not tolerate. ABG - pH 7.49 pCO2 37 HCO3 28, uncompensated metabolic alkalosis. CT Chest without PE, likely aspiration pneumonia vs multifocal pneumonia. Respiratory status continues to decline with concern for fatigue with pending failure. Discussed code status with patient and daughter. Patient amenable to intubation if indicated. Surgery aware of change in clinical status. Pulm consult - appreciate recs. Urgent pulmonology consult - appreciate input. Hypertonic saline neb, IS, flutter valve #Partial SBO #Abdominal Pain #Nausea and Vomiting No SBO reported on previous CT A&P. Now partial SBO evident on CT. Patient NPO. Recommend NGT placement. Antiemetics and pain medications as needed. Miralax and Senna for bowel regimen. Patient dislodged NGT with forceful emesis. Patient would prefer surgery over repeat NGT placement. Declined NGT. Miralax and Senna PEDRO Compazine 5 mg IV Q6H PRN Protonix 40 mg PO daily Morphine as needed for pain Surg on board - appreciate recs #HLD Chronic. Stable. Continue simvastatin 80 mg p.o. daily #HTN Chronic. Stable. Continue amlodipine 2.5 mg p.o. daily #CAD Chronic. Continue aspirin 81 mg p.o. daily Code status: full DVT ppx: Will start SQ heparin after r/o PE HORTENSIA: NPO, Dispo: med/surg Family updated: Aleah 09/24 daughter, she is on her way from [facility] (2) Acute hypoxemic respiratory failure: (3) Hyperlipidemia: (4) Hypertension: (5) CAD (coronary artery disease): (6) Intractable abdominal pain: (7) Small bowel obstruction, partial: Admission and Anticipated Discharge Date Admission Date: September 22, 2023 Supervising Physician Co-Signing Physician Notes Resident Physician Supervision Note: I independently interviewed and examined the patient and verified the ellis history and physical, reviewed labs and image studies and agree with resident findings and care plan. Overnight vomited - NGT placed - but got pulled and didn't want it again. Visited multiple times - In am seemed more short of breath- he agreed he feels more short of breath CXR ordered - no acute changes. Breathing worsened - needing higher O2 and tachypneic Transferred to PCU - persistent worsening of breathing. some cough. Needing >10L O2. AAOx3 Severe resp distress/lungs - decreased breath sounds. tachycardic Acute hypoxic respiratory failure -Oxygen support. Unable to tolerated bipap. Pul consult for possible intubation needs. Aspiration pneumonia -Noted on CT chest. Likely happened last night after vomiting -pulmonary following -IV steroids -Nebs PSBO -NPO; IVF -surgery following Heparin SQ Subjective Seen at bedside this morning. Worsening symptoms over night. NGT placed and subsequently dislodged with force of emesis. Notified patient acutely hypoxic. Went to bedside. Patient with appropriate oxygen saturation with 10L oxymask intervention. Did not tolerate BiPAP. Escalated care to PCU level status. Physical Exam 2 Physical Exam: General: patient in severe respiratory distress, retractions present, fearful appearing, tiring from a respiratory status HEENT: PERRL, EOMI, anicteric sclera, conjunctiva without injection Heart: +S1/S2, regular, no m/r/g Abd: soft, diffusely tender, significant distension Neuro: alert and oriented Results & Data Results & Data Vital Signs (Past 12 Hours) Vital Signs Temp Pulse Resp BP Pulse Ox O2 Del Method 09/24/23 07:53 Room Air 09/24/23 07:28 37.3 C 82 18 126/69 92 Room Air 09/23/23 20:38 36.6 C 73 16 157/79 H 93 Room Air Laboratory Results 09/24/23 07:41 09/24/23 07:[address] 09/23/23 15:22 FINDINGS: Lower chest: Bronchial wall thickening and emphysema are seen. Liver: Unremarkable. No focal lesions are seen. Gallbladder and biliary tree: No calcified gallstones. Normal caliber wall. No intra- or extrahepatic biliary ductal dilation. Pancreas: Unremarkable, no focal lesions. Spleen: Unremarkable. Adrenals: Unremarkable. Kidneys and ureters: Right renal cyst is seen. Bowel: Air-fluid levels and distention of the small bowel measuring up to 41 mm in diameter. Moderate stool burden is seen in the colon where visualized. No pneumatosis intestinalis is seen. Lymph nodes Retroperitoneal: Unremarkable. Mesenteric: Unremarkable. Peritoneum: Small ascites is seen. Vessels: Atherosclerotic calcifications are seen. Abdominal wall: Unremarkable. Bones: Degenerative changes in the visualized spine. Old fracture of the right 11th rib. IMPRESSION: Interval development of small bowel obstruction, likely partial/early. No pneumatosis. Mild ascites is noted. Chest X-Ray 09/24/23 11:56 FINDINGS: No lines and tubes are seen. Calcified aortic knob is seen. The lungs are clear. No evidence of pleural effusion or pneumothorax. IMPRESSION: No acute abnormalities and in particular no radiographic evidence of pneumonia. Resident Activity Tracking Resident Involvement: Resident Care Provided Care Provided: Adult Hospital Medicine
[2023-09-24 08:22] LABS: Albumin Globulin Ratio 1.5 (0.9-2); Bilirubin,Total 0.7 mg/dl (0.2-1.0); Calcium 9.1 mg/dl (8.6-10.3); Creatinine Clr Calc Pharmacy 67.4 ml/min; Est GFR (African American) 105.2 ml/min; Est GFR (Non-African American) 90.7 ml/min; Globulin 2.6 gm/dl (2.5-4.0); Potassium 3.7 mmol/L (3.5-5.1); Total Protein 6.6 gm/dl (6.0-8.3)
--- NOTE | 2023-09-24 08:52 | Surgery Consultation ---
Date of Consultation September 24, 2023 Assessment & Plan (1) Small bowel obstruction, partial: Encouraged NG tube for bowel decompression Patient reports he has a deviated septum , but is willing to let the nurse try Abdomen is firm distended and tender, patient had episode of vomiting prior to my arrival VSS KUB from 09/22/23 IMPRESSION: Interval development of small bowel obstruction, likely partial/early. No pneumatosis. Mild ascites is noted. CT from 09/23/23 IMPRESSION: Interval development of small bowel obstruction, likely partial/early. No pneumatosis. Mild ascites is noted. WBC this AM 1.3 however yesterday 6.18 Hospitalist aware On exam abdomen is distended, firm and TTP Recommend IV fluids for hydration, Continue NPO IV analgesics IV antiemetics Would like to try conservative measures at this time Will discuss with on-call surgeon Dr. Marsh (2) Intractable nausea and vomiting: Supervising Physician Co-Signing Physician Notes Patient has had a slowly progressing small bowel obstruction. A CT scan today revealed more dilated loops of bowel as well as a very dilated stomach containing contents. An NG tube was attempted for decompression. The patient r eportedly had an episode of vomiting with NG tube insertion and subsequently aspirated. He is now transferred to ICU with intubation considered. If the patient is intubated, recommend insertion of NG tube. Of note patient also had findings concerning for renal cell mass on CT and MRI is recommended once the patient is recovered from this acute incident. IV fluids, n.p.o. History of Present Illness Reason for Consultation: SBO Requesting Physician: Dr. Sarabia Attending Physician: Tatiana Mi MD History of Present Illness Patient is 73yo male with PMH of AAA bypass, COPD, HTN, HLD, CAD, prostate cancer that presented to the [facility] ER 09/21/23 with c/o of abdominal pain and N/V that started that morning. Patient reports he has been having fevers and chills over night, denies CP, SOB. Reports last BM this AM. Reports a past surgical HX of prostate CA removal, and AAA by pass. Allergies Allergy/AdvReac Type Severity Reaction Status Date / Time Sulfa (Sulfonamide Allergy Intermediate RASH/HIVES Verified 07/28/23 11:49 Antibiotics) codeine AdvReac Mild UPSETS Verified 07/28/23 11:49 STOMACH - NAUSEA wool AdvReac Mild ITCHING Verified 07/28/23 11:49 Home Medications Medication Instructions Recorded Confirmed Type nitroglycerin 0.4 mg sublingual 0.4 mg sublingual Q5M PRN Chest 09/27/19 09/21/23 History tablet Pain #25 tabs amlodipine 2.5 mg tablet 2.5 mg PO DAILY #90 tabs 03/27/23 09/21/23 Rx escitalopram oxalate 20 mg tablet 20 mg PO DAILY #90 tabs 03/27/23 09/21/23 Rx omeprazole 40 mg capsule,delayed 40 mg PO DAILY #90 caps 06/09/23 09/21/23 Rx release simvastatin 80 mg tablet 80 mg PO DAILY #90 tabs 06/26/23 09/21/23 Rx ketoconazole 2 % shampoo 1 applic topical UD 07/13/23 09/21/23 History aspirin 81 mg tablet,delayed 81 mg PO BID 07/27/23 09/21/23 History release cholecalciferol (vitamin D3) 1,250 1,250 mcg PO .WEEKLY 13 weeks #13 07/28/23 09/21/23 Rx mcg (50,000 unit) tablet tabs oxycodone 5 mg tablet 5 mg PO Q6H PRN pain #30 tabs 09/03/23 09/21/23 Rx doxepin 25 mg capsule 25 mg PO HS PRN insomnia 09/21/23 09/21/23 History ferrous sulfate 142 mg (45 mg 142 mg PO QAM 09/21/23 09/21/23 History iron) tablet,extended release Patient History Medical History AAA (abdominal aortic aneurysm) S/p bypass around 2001 Spinal stenosis Chronic low back pain Prostate cancer History of melanoma S/p Mohns surgery Hx of glaucoma No current issues - follows with eye doctor History of depression History of kidney stones No current issues PAD (peripheral artery disease) Aorta to right femoral and left external iliac bypass S/p stenting of left external iliac artery in the past Left external iliac artery angioplasty 08/03/20 Known severe bilateral SFA disease--Abimael class 2-3 claudication symptoms, moderate arterial insufficiency by [facility]; followed by Dr. Proctor Hypertension Hyperlipidemia GERD (gastroesophageal reflux disease) Well controlled and stable CAD (coronary artery disease) Moderate RCA disease per 2013 cardiac cath Surgical History S/P prostatectomy (02/12/21) 02/12/21 Dr. Johnnie Valderrama- Laparoscopic robotic assisted prostatectomy, urethral dilation, and extensive lysis of adhesions S/P insertion of iliac artery stent ? 10 YEARS AGO AT [facility] History of colonoscopy H/O prostate biopsy History of tooth extraction History of cataract surgery RT/LEFT H/O vascular surgery Left External Iliac Artery Angioplasty History of surgical procedure on eye proper using laser RT/LEFT (TO TREAT GLAUCOMA) History of Mohs micrographic surgery for skin cancer FACIAL AREA History of cystoscopy For urethral stricture History of abdominal aortic aneurysm repair Aorta to right femoral and left external iliac bypass 15 YEAR AGO AT [facility] Family History Family/Other Cancer Father Diabetes Cancer Brain tumor Hypertension Daughter No problems noted. Mother Lupus Albino Other No family history of adverse response to anesthesia Denies family history of Ovarian cancer Prostate cancer Crohn's disease Myocardial infarction Breast cancer Colorectal cancer Social History Smoking Status: Heavy tobacco smoker Tobacco Type: Cigarettes Age Started Using Tobacco: 10; Cigarettes Per Day: pack; Second Hand Exposure: Yes; Do You Dip or Chew Tobacco: No; Tobacco Cessation Education Requested by Patient: No Hx Alcohol Use: Yes Alcohol type: beer Alcohol Intake Frequency: 2-3 x/Week Hx Substance Use: No Preferred Language: [place]ese Communication Ability: Effective Hearing Ability: Normal Electronic Data Interchange Specialist Required: No Beliefs That Will Affect Care: None marital status: Current Living Situation: Alone current occupational status: retired How many Children do You have: 1 Other Information That Helps Us Care for You: No Feels Safe at Home: Yes Safety Concerns: Feels Safe At This Time Childhood Exposure to Second-Hand Smoke: Yes Diet: regular caffeine: Yes (coffee) Dental Care, Regularly: No Physical Activity Frequency: Daily Seatbelt Use: always Sunscreen Use: Yes Assistive Devices: Cane and Walker Review of Systems Constitutional: + fever and + chills Respiratory: no dyspnea Cardiovascular: no chest pain Gastrointestinal: + abdominal pain, + bloating, + nausea a nd + vomiting Genitourinary: no problem reported Physical Exam Constitutional: + thin, + frail appearing and cooperativ e; no acute distress Respiratory: normal respiratory effort and able to speak in complete sentences; no respiratory distress Cardiovascular: Rate/Rhythm: regular rate Gastrointestinal (Abdomen): Inspection/Auscultation: + abdomen distended Percussion/Palpation: + abdomen tender and abdomen soft; no guarding Results & Data Vital Signs (Past 12 Hours) Vital Signs Temp Pulse Resp BP Pulse Ox O2 Del Method 09/24/23 07:53 Room Air 09/24/23 07:28 99.1 F 82 18 126/69 92 Room Air Diagnostic Findings [place] [phone] CT Scan Report Patient: SADA CRAMER Admit Date: 09/22/23 MR#: [id number] Address1: [address] Acct ID:[id number] Address2: [address] Date: 1950 [facility] Zip: [place] [address] Age: 73 Location: 3W Sex: M Room/Bed: [facility] Att Phy: Tatiana Mi MD Diagnosis: ABD PAIN Keshia Phy: Nitza Baca MD Service Date: 09/23/23 Fam Phy: Interpreting Phy: Lion Woods MDAdmit Phy: Lacy Tilley DLeidaO. Ordering Phy: Maris Sarabia MD cc: ~ CT abdomen oral and IV con CLINICAL HISTORY: abdominal pain TECHNIQUE: Helical axial images of the abdomen were obtained. Automated dose lowering techniques and/or adjustment according to patient size were utilized for this exam. This exam was performed with intravenous contrast. CT DOSE: 213.9 mGy.cm Comparison: Comparison is made to CT abdomen pelvis 09/21/2023 FINDINGS: Lower chest: Bronchial wall thickening and emphysema are seen. Liver: Unremarkable. No focal lesions are seen. Gallbladder and biliary tree: No calcified gallstones. Normal caliber wall. No intra- or extrahepatic biliary ductal dilation. Pancreas: Unremarkable, no focal lesions. Spleen: Unremarkable. Adrenals: Unremarkable. Kidneys and ureters: Right renal cyst is seen. Bowel: Air-fluid levels and distention of the small bowel measuring up to 41 mm in diameter. Moderate stool burden is seen in the colon where visualized. No pneumatosis intestinalis is seen. Lymph nodes Retroperitoneal: Unremarkable. Mesenteric: Unremarkable. Peritoneum: Small ascites is seen. Vessels: Atherosclerotic calcifications are seen. Abdominal wall: Unremarkable. Bones: Degenerative changes in the visualized spine. Old fracture of the right 11th rib. IMPRESSION: Interval development of small bowel obstruction, likely partial/early. No pneumatosis. Mild ascites is noted. ACT 112: Negative or not required by law. Electronically signed by: Lion Woods M.D. 09/23/2023 6:23 PM Dictated: 09/23/231807 Transcribed: 09/23/231807 [place] [phone] XRay Report Patient: SADA CRAMER Admit Date: 09/22/23 MR#: [id number] Address1: [address] [facility] [facility] Acct ID:[id number] Address2: [address] Date: 1950 [facility] Zip: [place] [address] Age: 73 Location: 3W Sex: M Room/Bed: [facility] Att Phy: Tatiana Mi MD Diagnosis: ABD PAIN Keshia Phy: Nitza Baca MD Service Date: 09/22/23 Fam Phy: Interpreting Phy: Michael BroderickAdmit Phy: Lacy Tilley D.O. Ordering Phy: Lacy Tilley D.O. cc: ~ KUB HISTORY: Acute generalized abdominal pain with nausea assess bowel loops for possible obstruction COMPARISON: CT 09/21/2023 FINDINGS: Nonobstructive bowel gas pattern. Air-filled loops of small bowel are noted with a single mildly dilated loops in the left midabdomen measuring 3.9 cm. Contrast noted within the urinary bladder lumen. Mild to moderate colonic fecal retention. Left iliac stent graft. Small bilateral renal calculi redemonstrated measuring up to approximately 4 mm without nephrolithiasis. No pneumoperitoneum or pneumatosis. Lumbar levoscoliosis. Partially imaged orthopedic hardware at the left proximal femur. No fracture. IMPRESSION: 1. No evidence of a high-grade small bowel obstruction. Mildly dilated loops of small bowel in the lower abdomen may represent an enteritis versus low-grade small bowel obstruction. Continued follow-up recommended. 2. Bilateral nephrolithiasis. ACT 112: Negative or not required by law. The above report was generated using voice recognition software. It may contain grammatical, syntax or spelling errors. Electronically signed by: Michael Broderick M.D. 09/22/2023 9:50 AM Dictated: 09/22/23946 Transcribed: 09/22/23946 PG Care Time/CCT Total # of Minutes Spent Total Time Spent with Patient: Total time spent is greater than 50% in coordination of care (as documented) at patient's floor/unit and/or counseling patient: Coding Level of Care Code 90618 INT INP/OBS CARE 1/40MIN Diagnoses Small bowel obstruction, partial K56.600 Intractable nausea and vomiting R11.2
[2023-09-24] MEDS ORDERED: SENNOSIDES 8.8 MG/5 ML UDC PO SCH (09:00)
[2023-09-24] MEDS: amLODIPine BESYLATE 5 MG TAB PO SCH (09:16)
[2023-09-24] MEDS: ASPIRIN 81 MG ECTAB PO SCH (09:16)
[2023-09-24] MEDS: ESCITALOPRAM OXALATE 20 MG TAB PO SCH (09:16)
[2023-09-24] MEDS: PANTOprazole 40 MG TAB PO SCH (09:16)
[2023-09-24] MEDS: SIMVASTATIN 80 MG TAB PO SCH (09:16)
[2023-09-24] MEDS: POLYETHYLENE (MIRALAX) 17 GM PACK PO SCH (09:16)
[2023-09-24] MEDS ORDERED: ETOMIDATE 2 MG/ML 20 ML VIAL IV ONE (09:59)
[2023-09-24] MEDS ORDERED: SUCCINYLCHOLINE CHLORIDE 20 MG/ML 10 ML VIAL IV ONE (09:59)
[2023-09-24] MEDS: LACTATED RINGER'S 1,000 ML IV SCH ×2 (10:51→18:30)
--- NOTE | 2023-09-24 12:46 | XRay Report ---
XR chest 1V portable CLINICAL HISTORY: dyspnea new o2 requirement TECHNIQUE: Single frontal radiograph of the chest was obtained. Comparison: Comparison is made to chest radiograph 09/21/2023 FINDINGS: No lines and tubes are seen. Calcified aortic knob is seen. The lungs are clear. No evidence of pleur al effusion or pneumothorax. IMPRESSION: No acute abnormalities and in particular no radiographic evidence of pneumonia. ACT 112: Negative or not required by law. Electronically signed by: Lion Woods M.D. 09/24/2023 12:44 PM
[2023-09-24 13:28] LABS: Allen Test Pos (Pos); Base Excess ABG 4.7 mEq/L (-9-1.8); HCO3 ABG 28 mmol/L (19-24); Oxygen Saturation ABG 93.1 % (90-95); PCO2 ABG 37 mmHg (35-46); PO2 ABG 65 mmHg (80-95); pH ABG 7.49 (7.35-7.45)
[2023-09-24] MEDS ORDERED: OPTIRAY 320 500ml IV ONE (15:33)
--- NOTE | 2023-09-24 15:59 | CT Scan Report ---
CT ANGIOGRAPHY OF THE CHEST, PULMONARY EMBOLUS PROTOCOL CLINICAL HISTORY: Shortness of breath. Evaluate for pulmonary embolus. COMPARISON STUDY: Chest CT March 30, 2023. Chest radiograph performed earlier today. CT of the abdomen and pelvis September 23, 2023. TECHNIQUE: Following IV administration of 111 mL of Optiray, helical axial images of the chest were o btained utilizing the pulmonary embolus protocol. Maximal intensity projections and sagittal and cor onal reformats were viewed on an independent 3D workstation. IV contrast was administered without co mplication. Automated exposure control was utilized for the study. A dose lowering technique was ut ilized adhering to the principles of ALARA. CT DOSE: 321.36 mGy.cm FINDINGS: No pulmonary emboli are identified although the segmental and subsegmental pulmonary arter ies are suboptimally assessed due to significant respiratory motion. There is no pericardial effusion . Moderate coronary artery calcification is present. There is no pneumothorax. Trace right pleural ef fusion is noted. Lungs are suboptimally assessed due to respiratory motion. Emphysema is again noted. There has been interval development of moderate alveolar opacities within the right middle lobe, low er lobe and lingula since abdominal CT of September 23, 2023. Left basilar consolidation is now presen t. There are secretions within the airways. No central obstructing mass is identified. There is no pn eumothorax. There is probable esophageal wall thickening with mild adjacent mediastinal edema. No pne umomediastinum is present. IMPRESSION: 1. No pulmonary emboli identified although segmental and subsegmental pulmonary arteries suboptimally assessed due to respiratory motion. 2. Interval development of moderate alveolar opacities within the lower lobes, right middle lobe and lingula as well as left basilar consolidation since abdominal CT of September 23, 2023. The findings f avor aspiration. Multifocal pneumonia could appear similar. 3. Wall thickening of the mid to distal esophagus with associated mediastinal edema. No pneumomediast inum. This suggests esophagitis. 4. Emphysema. ACT 112: Negative or not required by law. Electronically signed by: Suresh Guerrero M.D. 09/24/2023 3:58 PM
[2023-09-24] MEDS ORDERED: Heparin IV Adult Wt-Based Standard *NO* Bolus Protocol IV STA (16:41)
[2023-09-24] MEDS ORDERED: HEPARIN SODIUM/DEXTROSE 25,000 UNITS/500 ML BAG IV SCH (17:00)
[2023-09-24] MEDS ORDERED: METHYLPREDNISOLONE IV STA (17:45)
[2023-09-24] MEDS ORDERED: IPRATROPIUM BROMIDE NEB SOLN 0.02% 2.5 ML VIAL NEB STA (17:46)
--- NOTE | 2023-09-24 18:53 | Pulmonary Consultation ---
Date of Consultation September 24, 2023 Assessment & Plan (1) Small bowel obstruction, partial: (2) Acute hypoxemic respiratory failure: (3) CAD (coronary artery disease): Coronary Disease-Associated Artery/Lesion type: unspecified vessel or lesion type [place] vs. transplanted heart: [place] heart Associated angina: without angina Qualified Code(s): I25.10 - Atherosclerotic heart disease of [place] coronary artery without angina pectoris (4) Peripheral artery disease: (5) Pulmonary nodules: Plan 73 year old male active smoker with COPD, CAD, PAD presents with partial small bowel obstruction. 1. acute hypoxic respiratory failure - secondary to suspected aspiration and COPD exacerbation. Add scheduled nebs and solumedrol. failed high flow and now intubated. continue vent support. 2. s/p cardiac arrest - PEA secondary to hypoxia. 2. Probably aspiration pneumonia - add empiric ceftriaxone. Check blood and sputum cultures. 3. COPD exacerbation - as above. 4. small bowel obstruction - per surgery. Discussed with primary and RN. Total CC time spent 46 minutes. History of Present Illness Attending Physician: Tatiana Mi MD History of Present Illness 73-year-old male with history of hypertension, hyperlipidemia, GERD, active smoker, COPD presenting with acute onset of abdominal pain and vomiting. He was found to have partial small bowel obstruction and evaluated by surgery today. Conservative management with IVF and NG. (+) vomitting. He became progressively more short of breath. Upon my exam he was on oxymask satting in the mid 80's. chest CT showed new bibasilar patchy infiltrates. Allergies Allergy/AdvReac Type Severity Reaction Status Date / Time Sulfa (Sulfonamide Allergy Intermediate RASH/HIVES Verified 07/28/23 11:49 Antibiotics) codeine AdvReac Mild UPSETS Verified 07/28/23 11:49 STOMACH - NAUSEA wool AdvReac Mild ITCHING Verified 07/28/23 11:49 Home Medications Medication Instructions Recorded Confirmed Type nitroglycerin 0.4 mg sublingual 0.4 mg sublingual Q5M PRN Chest 09/27/19 09/21/23 History tablet Pain #25 tabs amlodipine 2.5 mg tablet 2.5 mg PO DAILY #90 tabs 03/27/23 09/21/23 Rx escitalopram oxalate 20 mg tablet 20 mg PO DAILY #90 tabs 03/27/23 09/21/23 Rx omeprazole 40 mg capsule,delayed 40 mg PO DAILY #90 caps 06/09/23 09/21/23 Rx release simvastatin 80 mg tablet 80 mg PO DAILY #90 tabs 06/26/23 09/21/23 Rx ketoconazole 2 % shampoo 1 applic topical UD 07/13/23 09/21/23 History aspirin 81 mg tablet,delayed 81 mg PO BID 07/27/23 09/21/23 History release cholecalciferol (vitamin D3) 1,250 1,250 mcg PO .WEEKLY 13 weeks #13 07/28/23 09/21/23 Rx mcg (50,000 unit) tablet tabs oxycodone 5 mg tablet 5 mg PO Q6H PRN pain #30 tabs 09/03/23 09/21/23 Rx doxepin 25 mg capsule 25 mg PO HS PRN insomnia 09/21/23 09/21/23 History ferrous sulfate 142 mg (45 mg 142 mg PO QAM 09/21/23 09/21/23 History iron) tablet,extended release Patient History Medical History AAA (abdominal aortic aneurysm) S/p bypass around 2001 Spinal stenosis Chronic low back pain Prostate cancer History of melanoma S/p Mohns surgery Hx of glaucoma No current issues - follows with eye doctor History of depression History of kidney stones No current issues PAD (peripheral artery disease) Aorta to right femoral and left external iliac bypass S/p stenting of left external iliac artery in the past Left external iliac artery angioplasty 08/03/20 Known severe bilateral SFA disease--Abimael class 2-3 claudication symptoms, moderate arterial insufficiency by ADRIENNE; followed by Dr. Proctor Hypertension Hyperlipidemia GERD (gastroesophageal reflux disease) Well controlled and stable CAD (coronary artery disease) Moderate RCA disease per 2013 cardiac cath Surgical History S/P prostatectomy (02/12/21) 02/12/21 Dr. Johnnie Valderrama- Laparoscopic robotic assisted prostatectomy, urethral dilation, and extensive lysis of adhesions S/P insertion of iliac artery stent ? 10 YEARS AGO AT [place] History of colonoscopy H/O prostate biopsy History of tooth extraction History of cataract surgery RT/LEFT H/O vascular surgery Left External Iliac Artery Angioplasty BIRD History of surgical procedure on eye proper using laser RT/LEFT (TO TREAT GLAUCOMA) History of Mohs micrographic surgery for skin cancer FACIAL AREA History of cystoscopy For urethral stricture History of abdominal aortic aneurysm repair Aorta to right femoral and left external iliac bypass 15 YEAR AGO AT [facility] Family History Family/Other Cancer Father Diabetes Cancer Brain tumor Hypertension Daughter No problems noted. Mother Lupus Albino Other No family history of adverse response to anesthesia Denies family history of Ovarian cancer Prostate cancer Crohn's disease Myocardial infarction Breast cancer Colorectal cancer Social History Smoking Status: Heavy tobacco smoker Tobacco Type: Cigarettes Age Started Using Tobacco: 10; Cigarettes Per Day: pack; Second Hand Exposure: Yes; Do You Dip or Chew Tobacco: No; Tobacco Cessation Education Requested by Patient: No Hx Alcohol Use: Yes Alcohol type: beer Alcohol Intake Frequency: 2-3 x/Week Hx Substance Use: No Preferred Language: Kiswahili Communication Ability: Effective Hearing Ability: Normal Chief Operator Reformer Required: No Beliefs That Will Affect Care: None marital status: Current Living Situation: Alone current occupational status: retired How many Children do You have: 1 Other Information That Helps Us Care for You: No Feels Safe at Home: Yes Safety Concerns: Feels Safe At This Time Childhood Exposure to Second-Hand Smoke: Yes Diet: regular caffeine: Yes (coffee) Dental Care, Regularly: No Physical Activity Frequency: Daily Seatbelt Use: always Sunscreen Use: Yes Assistive Devices: Cane and Walker Physical Exam Constitutional: + thin Respiratory: + respiratory distress Auscultation: + diminished lung sounds and + wheezes Cardiovascular: Rate/Rhythm: regular rate and regular rhythm Gastrointestinal (Abdomen): Inspection/Auscultation: + abdomen distended and + hypoactive bowel sounds Percussion/Palpation: abdomen nontender Skin: no rashes, warm and dry Neurologic: CN's II-XI intact bilaterally and moves all extremities Results & Data Results & Data Vital Signs (Past 12 Hours) Vital Signs Temp Pulse Pulse Pulse Resp BP Pulse Ox 09/24/23 18:44 130 H 28 H 103/67 83 L 09/24/23 18:23 131 H 40 H 92 09/24/23 17:57 130 H 30 H 90 09/24/23 16:59 109 H 09/24/23 16:05 37.1 C 120 H 32 H 146/69 H 90 09/24/23 15:09 111 H 09/24/23 13:44 09/24/23 13:33 37.5 C 93 H 25 H 125/69 93 09/24/23 12:10 99 H 35 H 94 09/24/23 11:57 36.8 C 93 H 22 126/70 75 L 09/24/23 07:53 09/24/23 07:28 37.3 C 82 18 126/69 92 O2 Del Method O2 Flow Rate FiO2 09/24/23 18:44 High Flow Nasal Cannula 09/24/23 18:23 High Flow Nasal Cannula 60 100 09/24/23 17:57 High Flow Nasal Cannula 40 100 09/24/23 16:59 09/24/23 16:05 Oxymask 13 09/24/23 15:09 09/24/23 13:44 Oxymask 10 09/24/23 13:33 Oxymask 10 09/24/23 12:10 50 09/24/23 11:57 Room Air 09/24/23 07:53 Room Air 09/24/23 07:28 Room Air PG Care Time/CCT Total # of Minutes Spent Total Time Spent with Patient: Total time spent is greater than 50% in coordination of care (as documented) at patient's floor/unit and/or counseling patient: Coding Level of Care Code 83508 CRITICAL CARE 1ST 30-74M Diagnoses Small bowel obstruction, partial K56.600 Acute hypoxemic respiratory failure J96.01 Coronary artery disease involving [place] heart without angina pectoris, unspecified vessel or lesion type I25.10 Coronary Disease-Associated Artery/Lesion type: unspecified vessel or lesion type [place]olai vs. transplanted heart: [place] heart Associated angina: without angina Peripheral artery disease I73.9 Pulmonary nodules R91.8
[2023-09-24] MEDS: SODIUM CHLOR 7% 4 ML NEB NEB SCH (19:14)
[2023-09-24] MEDS ORDERED: RAPID SEQUENCE INDUCTION BAG ONE (19:26)
[2023-09-24] MEDS ORDERED: NOREPINEPHRINE/D5W 4 MG/250 ML IV ONE (19:44)
[2023-09-24] MEDS ORDERED: fentaNYL citrate 2,500 MCG/250 ML BAG IV ONE (19:45)
[2023-09-24] MEDS ORDERED: MIDAZOLAM HCL 125MG/250ML D5W IV ONE (19:46)
[2023-09-24] MEDS ORDERED: fentaNYL BOLUS from BAG IV PRN (19:51)
[2023-09-24] MEDS ORDERED: MIDAZOLAM BOLUS FROM BAG IV PRN (19:51)
[2023-09-24] MEDS ORDERED: STAT IV Infusion **Titration per Protocol STA ×3 (19:51→21:21)
--- NOTE | 2023-09-24 19:54 | Procedure Note ---
Procedure Note Date of Service September 24, 2023 Note Procedure - emergent endotracheal intubation Indication - acute hypoxic respiratory failure Rapid Sequence Intubation was conducted. The patient received 20mg of etomidate for induction and 100 mcg of succinylcholine for adequate paralysis. Using a size 3 glidescope and a size7.5 endotracheal tube with stylet, the patient was intubated on the first attempt. The stylet was removed and cuff balloon was inflated. Appropriate endotracheal tube position was confirmed by direct visualization of vocal cord passage, fogging of the tube, CO2 colormetric indicator and symmetric breath sounds. The tube was secured at 25 cm at the lips. Post intubation chest x-ray is pending at this time. Coding
[2023-09-24] MEDS ORDERED: MIDAZOLAM HCL 125 MG/250 ML BAG IV SCH (20:00)
[2023-09-24] MEDS ORDERED: fentaNYL citrate 2,500 MCG/250 ML BAG IV SCH (20:00)
[2023-09-24] MEDS: NOREPINEPHRINE/D5W 4 MG/250 ML PLCT IV SCH (20:00)
[2023-09-24] MEDS ORDERED: cefTRIAXone SODIUM 1,000 MG in DEXTROSE 5 % MINI-B 50 ML IV SCH (20:00)
[2023-09-24] MEDS ORDERED: IPRATROPIUM BROMIDE NEB SOLN 0.02% 2.5 ML VIAL NEB SCH (20:00)
[2023-09-24 20:07] LABS: iSTAT Allen Test Pass; iSTAT Art Bld Gas pCO2 Correct 54 mmHg (35-46); iSTAT Art Bld Gas pH Corrected 7.168 (7.35-7.45); iSTAT Arterial Blood Gas HCO3 20 meg/L (19-24); iSTAT Arterial Blood Gas pCO2 56 mmHg (35-46); iSTAT Arterial Blood Gas pH 7.16 (7.35-7.45); iSTAT Arterial Blood Gas pO2 282 mmHg (80-95); iSTAT Arterial Blood Gas pO2 C 277; iSTAT Carbon Dioxide 22 mmol/L (24-31); iSTAT FiO2 100 %; iSTAT Hematocrit 38 % (42-52); iSTAT Hemoglobin 12.9 g/dl (14.0-18.0); iSTAT Potassium 3.6 mmol/L (3.3-5.0); iSTAT Site L Brachial; iSTAT Sodium 136 mmol/L (135-144)
[2023-09-24] MEDS ORDERED: PHENYLEPHRINE HCL 25 MG/250 ML NSS IV ONE ×2 (20:16→21:21)
[2023-09-24] MEDS ORDERED: ADENOSINE IV SOLN 3 MG/ML 2 ML VIAL IV ONE ×2 (20:26→20:27)
[2023-09-24] MEDS: EPINEPHrine/NSS 4 MG/254 ML BAG IV SCH (20:50)
[2023-09-24 21:22] LABS: iSTAT Art Bld Gas pCO2 Correct 64 mmHg (35-46); iSTAT Art Bld Gas pH Corrected 7.192 (7.35-7.45); iSTAT Arterial Blood Gas HCO3 24 meg/L (19-24); iSTAT Arterial Blood Gas pCO2 61 mmHg (35-46); iSTAT Arterial Blood Gas pH 7.21 (7.35-7.45); iSTAT Arterial Blood Gas pO2 139 mmHg (80-95); iSTAT Arterial Blood Gas pO2 C 147; iSTAT Carbon Dioxide 26 mmol/L (24-31); iSTAT FiO2 100 %; iSTAT Hematocrit 34 % (42-52); iSTAT Hemoglobin 11.6 g/dl (14.0-18.0); iSTAT Potassium 2.9 mmol/L (3.3-5.0); iSTAT Site Art Line; iSTAT Sodium 141 mmol/L (135-144)
[2023-09-24] MEDS ORDERED: ACETAMINOPHEN 1,000 MG/100 ML VIAL IV PRN (21:29)
[2023-09-24] MEDS ORDERED: PHENYLEPHRINE/NSS 25 MG/250 ML BAG IV SCH (21:30)
[2023-09-24 21:46] LABS: Hematocrit (blood only) 26.8 % (42.0-52.0); Hemoglobin 8.7 g/dl (14.0-18.0); Mean Corpuscular Hgb Conc 32.5 g/dL (32.0-36.0); Mean Corpuscular Volume 101.5 fL (80.0-100.0); Mean Platelet Volume 10.1 fL (9.4-12.4); Platelet Count 128 K/uL (130-400); RDW Coefficient of Variation 14.9 % (11.5-14.5); RDW Standard Deviation 55.8 fL (36.4-46.3); Red Blood Count 2.64 M/uL (4.70-6.10); White Blood Count 0.88 K/ul (4.8-10.8)
[2023-09-24 21:51] LABS: BUN Creatinine Ratio 25.6 (10-20); Calcium 5.9 mg/dl (8.6-10.3); Creatinine Clr Calc Pharmacy 40.7 ml/min; Est GFR (African American) 67.5 ml/min; Est GFR (Non-African American) 58.2 ml/min; Magnesium 1.1 mg/dl (1.7-2.4); Phosphorus 4.5 mg/dl (2.5-4.9); Potassium 2.2 mmol/L (3.5-5.1)
[2023-09-24] MEDS ORDERED: DEXTROSE 50% 50 ML SYRINGE IV ONE (21:51)
[2023-09-24] MEDS ORDERED: POTASSIUM CHLORIDE / WTR 20 MEQ/100 ML PLCT IV STA (21:51)
[2023-09-24] MEDS ORDERED: D5W AND 1/2NSS + 20MEQ KCL 20 MEQ/1,000 ML BAG IV SCH (22:00)
[2023-09-24] MEDS ORDERED: D5W AND NSS 1,000 ML IV SCH (22:00)
[2023-09-24 22:10] LABS: ALC (manual) 0.12 K/uL (1.2-3.4); ANC (manual) 0.36 K/uL (1.4-6.5); Dohle Bodies 1+; Echinocytes 1+; Lymphocytes # (manual) 0.12 K/uL (1.2-3.4); Lymphocytes % (manual) 14 %; Metamyelocytes # (manual) 0.26 K/uL (0-0); Metamyelocytes % (manual) 29 %; Monocytes # (manual) 0.09 K/uL (0.11-0.59); Monocytes % (manual) 10 %; Myelocytes # (manual) 0.05 K/uL (0-0); Myelocytes % (manual) 6 %; Neutrophils # (manual) 0.36 K/uL (1.40-6.50); Neutrophils % (manual) 41 %
[2023-09-24] MEDS ORDERED: STAT IV/IM STA (22:18)
[2023-09-24] MEDS: POTASSIUM CHLORIDE / WTR 20 MEQ/100 ML PLCT IV SCH (22:24)
[2023-09-24] MEDS: MAGNESIUM SULFATE / D5W 1 GM/100 ML BAG IV SCH ×2 (22:24→23:34)
[2023-09-24] MEDS: SODIUM CHLORIDE 0.9% IV SCH (22:25)
[2023-09-24] MEDS: PHENYLEPHRINE HCL IV SCH (22:25)
[2023-09-24] MEDS: PANTOprazole 40 MG in SYRINGE 0 ML IV SCH (22:26)
[2023-09-24] MEDS: metroNIDAZOLE 500 MG/100 ML BAG IV SCH (22:26)
[2023-09-24] MEDS ORDERED: DEXTROSE 5% IV SCH (22:30)
[2023-09-24] MEDS ORDERED: POTASSIUM CHLORIDE IV SCH (22:30)
[2023-09-24] MEDS ORDERED: SODIUM BICARBONATE IV SCH (22:30)
[2023-09-24 22:37] LABS: Albumin Level 2.7 gm/dl (3.4-5.0); Bilirubin Direct 0.3 mg/dl (0-0.2); Bilirubin,Total 0.7 mg/dl (0.2-1.0); Total Protein 4.5 gm/dl (6.0-8.3)
[2023-09-24] MEDS ORDERED: SODIUM BICARB 8.4% INJ 50 MEQ/50 ML SYR IV STA (22:45)
--- NOTE | 2023-09-24 22:54 | Urology Consultation ---
<Statement entered by Suhas Seymour MD - 09/25/23 08:57> I agree with the above documentation. Camacho catheter was placed as described. He had a notable urethral stricture which prohibited placement of 14 or 16 Malay silicone catheters. A 0.038" ZIPwire was advanced per urethra and seemed to curl appropriately in the bladder. Urethral dilation was performed using cu rved S-dilators up to 16 Malay. A councilized 14-Fr silicone catheter could then be advanced over the wire. Good position was confirmed by instilling and aspirating normal saline. Balloon inflated with 10 mL of normal saline and catheter attached to gravity drainage. -Suhas Seymour MD. Date of Consultation September 24, 2023 Assessment & Plan (1) Urethral stricture: Please see the history of present illness concerning procedure urology performed to place Camacho catheter. As noted in HPI it is recommended patient's Camacho catheter remains in place for the present time and consideration can be given to removing the Camacho catheter in the event that the patient stabilizes. History of Present Illness Reason for Consultation: Difficult Camacho placement Attending Physician: Tatiana Mi MD History of Present Illness This is a 73-year-old male who was admitted to [facility] on 09/22/2023. The patient was admitted with intractable nausea and vomiting. The patient was ultimately found to have concern for small bowel obstruction and general surgery was consulted. Conservative management was recommended however the patient was noted to have significant fluid content in his stomach and an NG tube was recommended. During attempted placement of NG tube the patient apparently aspirated and went into respiratory distress necessitating care in the ICU. The patient has since been intubated. The patient has had a CODE BLUE situation on 2 occasions. He is currently intubated in the ICU requiring the support of 2 pressors. Urology was asked to see the patient as nursing made multiple attempts to insert a Camacho catheter without attempts. I did discuss with the nurse and they tried to place a 16 and a 14 Malay coud catheter without success. I presented to the bedside with my attending physician, Dr. Seymour. I tried to place a 14 Malay silicone catheter without success. I then tried to place a 16 Malay silicone catheter without success. As these attempts failed Dr. Seymour then took a zip wire and was able to advance a zip wire through the patient's urethra into the bladder. He then dilated the patient's urethra up to 16 Malay and then was able to place a 14 Malay Camacho catheter into the bladder. The Camacho catheter was flushed following this procedure and appear to be in correct position. It is recommended by urology at the Camacho catheter remain in place for the present time. As the patient is in critical condition determination about removing Camacho catheter can be made in the future if patient recovers from the insult that necessitated care in the ICU and he becomes more stable. Allergies Allergy/AdvReac Type Severity Reaction Status Date / Time Sulfa (Sulfonamide Allergy Intermediate RASH/HIVES Verified 07/28/23 11:49 Antibiotics) codeine AdvReac Mild UPSETS Verified 07/28/23 11:49 STOMACH - NAUSEA wool AdvReac Mild ITCHING Verified 07/28/23 11:49 Home Medications Medication Instructions Recorded Confirmed Type nitroglycerin 0.4 mg sublingual 0.4 mg sublingual Q5M PRN Chest 09/27/19 09/21/23 History tablet Pain #25 tabs amlodipine 2.5 mg tablet 2.5 mg PO DAILY #90 tabs 03/27/23 09/21/23 Rx escitalopram oxalate 20 mg tablet 20 mg PO DAILY #90 tabs 03/27/23 09/21/23 Rx omeprazole 40 mg capsule,delayed 40 mg PO DAILY #90 caps 06/09/23 09/21/23 Rx release simvastatin 80 mg tablet 80 mg PO DAILY #90 tabs 06/26/23 09/21/23 Rx ketoconazole 2 % shampoo 1 applic topical UD 07/13/23 09/21/23 History aspirin 81 mg tablet,delayed 81 mg PO BID 07/27/23 09/21/23 History release cholecalciferol (vitamin D3) 1,250 1,250 mcg PO .WEEKLY 13 weeks #13 07/28/23 09/21/23 Rx mcg (50,000 unit) tablet tabs oxycodone 5 mg tablet 5 mg PO Q6H PRN pain #30 tabs 09/03/23 09/21/23 Rx doxepin 25 mg capsule 25 mg PO HS PRN insomnia 09/21/23 09/21/23 History ferrous sulfate 142 mg (45 mg 142 mg PO QAM 09/21/23 09/21/23 History iron) tablet,extended release Patient History Medical History AAA (abdominal aortic aneurysm) S/p bypass around 2001 Spinal stenosis Chronic low back pain Prostate cancer History of melanoma S/p Mohns surgery Hx of glaucoma No current issues - follows with eye doctor History of depression History of kidney stones No current issues PAD (peripheral artery disease) Aorta to right femoral and left external iliac bypass S/p stenting of left external iliac artery in the past Left external iliac artery angioplasty 08/03/20 Known severe bilateral SFA disease--[place] class 2-3 claudication symptoms, moderate arterial insufficiency by ADRIENNE; followed by Dr. Proctor Hypertension Hyperlipidemia GERD (gastroesophageal reflux disease) Well controlled and stable CAD (coronary artery disease) Moderate RCA disease per 2013 cardiac cath Surgical History S/P prostatectomy (02/12/21) 02/12/21 Dr. Johnnie Valderrama- Laparoscopic robotic assisted prostatectomy, urethral dilation, and extensive lysis of adhesions S/P insertion of iliac artery stent ? 10 YEARS AGO AT [place] History of colonoscopy H/O prostate biopsy History of tooth extraction History of cataract surgery RT/LEFT H/O vascular surgery Left External Iliac Artery Angioplasty History of surgical procedure on eye proper using laser RT/LEFT (TO TREAT GLAUCOMA) History of Mohs micrographic surgery for skin cancer FACIAL AREA History of cystoscopy For urethral stricture History of abdominal aortic aneurysm repair Aorta to right femoral and left external iliac bypass 15 YEAR AGO AT [facility] Family History Family/Other Cancer Father Diabetes Cancer Brain tumor Hypertension Daughter No problems noted. Mother Lupus Albino Other No family history of adverse response to anesthesia Denies family history of Ovarian cancer Prostate cancer Crohn's disease Myocardial infarction Breast cancer Colorectal cancer Social History Smoking Status: Heavy tobacco smoker Tobacco Type: Cigarettes Age Started Using Tobacco: 10; Cigarettes Per Day: pack; Second Hand Exposure: Yes; Do You Dip or Chew Tobacco: No; Hx Alcohol Use: Yes Alcohol type: beer Alcohol Intake Frequency: 2-3 x/Week Hx Substance Use: No Preferred Language: Taiwanese Communication Ability: Effective Hearing Ability: Normal Plastic Technician Required: No Beliefs That Will Affect Care: None marital status: Current Living Situation: Alone current occupational status: retired How many Children do You have: 1 Feels Safe at Home: Yes Childhood Exposure to Second-Hand Smoke: Yes Diet: regular caffeine: Yes (coffee) Dental Care, Regularly: No Physical Activity Frequency: Daily Seatbelt Use: always Sunscreen Use: Yes Assistive Devices: Cane and Walker Results & Data Vital Signs (Past 12 Hours) Vital Signs Temp Pulse Pulse Pulse Resp BP Pulse Ox 09/24/23 20:49 168 H 22 09/24/23 19:37 09/24/23 19:15 126 H 35 H 87 L 09/24/23 18:44 130 H 28 H 103/67 83 L 09/24/23 18:23 131 H 40 H 92 09/24/23 17:57 130 H 30 H 90 09/24/23 16:59 109 H 09/24/23 16:05 37.1 C 120 H 32 H 146/69 H 90 09/24/23 15:09 111 H 09/24/23 13:44 09/24/23 13:33 37.5 C 93 H 25 H 125/69 93 09/24/23 12:10 99 H 35 H 94 09/24/23 11:57 36.8 C 93 H 22 126/70 75 L O2 Del Method O2 Flow Rate FiO2 09/24/23 20:49 100 09/24/23 19:37 Mechanical Vent 100 09/24/23 19:15 High Flow Nasal Cannula 60 100 09/24/23 18:44 High Flow Nasal Cannula 09/24/23 18:23 High Flow Nasal Cannula 60 100 09/24/23 17:57 High Flow Nasal Cannula 40 100 09/24/23 16:59 09/24/23 16:05 Oxymask 13 09/24/23 15:09 09/24/23 13:44 Oxymask 10 09/24/23 13:33 Oxymask 10 09/24/23 12:10 50 09/24/23 11:57 Room Air PG Care Time/CCT Total # of Minutes Spent Total Time Spent with Patient: Total time spent is greater than 50% in coordination of care (as documented) at patient's floor/unit and/or counseling patient: Coding Level of Care Code 21688 INT INP/OBS CARE 1/40MIN Diagnoses Urethral stricture N35.919
[2023-09-24 23:11] LABS: iSTAT Art Bld Gas pCO2 Correct 69 mmHg (35-46); iSTAT Art Bld Gas pH Corrected 7.113 (7.35-7.45); iSTAT Arterial Blood Gas HCO3 22 meg/L (19-24); iSTAT Arterial Blood Gas pCO2 70 mmHg (35-46); iSTAT Arterial Blood Gas pH 7.11 (7.35-7.45); iSTAT Arterial Blood Gas pO2 65 mmHg (80-95); iSTAT Arterial Blood Gas pO2 C 63; iSTAT Carbon Dioxide 24 mmol/L (24-31); iSTAT FiO2 80 %; iSTAT Hematocrit 32 % (42-52); iSTAT Hemoglobin 10.9 g/dl (14.0-18.0); iSTAT Potassium 3.2 mmol/L (3.3-5.0); iSTAT Site Art Line; iSTAT Sodium 139 mmol/L (135-144)
[2023-09-24] MEDS: HEPARIN SOD 5,000 UNIT/0.5 ML VIAL SQ SCH (23:33)
--- NOTE | 2023-09-24 23:41 | Communication Note ---
Date of Service: September 24, 2023 Patient was moved to ICU earlier this evening with decompensated respiratory failure secondary to aspiration requiring high flow nasal cannula and was s tarted on antibiotics. He ultimately required intubation and had 2 episodes of PEA cardiac arrest requiring multiple rounds of CPR, epinephrine, atropine, and bicarb pushes. Central venous catheter and arterial line were inserted emergently as well. Patient now with circulatory shock requiring multiple vasopressor support. Lab work reveals severe electrolyte derangements which are being repleted. EKG with SVT and did attempt cardioversion x2 unsuccessfully. He is now on bicarb drip for mixed respiratory and metabolic acidosis, and lactic acid 5.9. Of note, urology consulted for difficult Camacho insertion and patient does have history of prostatectomy 2 years ago. Patient's daughter was called to the bedside and CODE STATUS now changed to DNR. Patient's prognosis remains poor. CRITICAL CARE TIME - I have personally spent 50 minutes of critical care time in the direct management of this patient. This is a life/limb threatening event. This includes time spent evaluating patient, direct bedside care, chart review, placing orders, interpretation of diagnostic studies, discussion with consultants, patient, and family members, as well as other required patient management activities. This time is exclusive of all separately billable procedures, and teaching time and separate from and in addition to any other critical care service time. Coding Level of Care Code 74189 CRITICAL CARE EA ADD 30M
[2023-09-25] MEDS: POLYETHYLENE (MIRALAX) 17 GM PACK PO SCH ×2 (00:12→08:15)
[2023-09-25] MEDS: POTASSIUM CHLORIDE / WTR 20 MEQ/100 ML PLCT IV SCH ×3 (00:12→04:19)
[2023-09-25 00:38] LABS: BUN Creatinine Ratio 19.5 (10-20); Creatinine Clr Calc Pharmacy 22.4 ml/min; Est GFR (African American) 32.7 ml/min; Est GFR (Non-African American) 28.3 ml/min; Potassium 4.4 mmol/L (3.5-5.1)
[2023-09-25 00:45] LABS: Hematocrit (blood only) 34.7 % (42.0-52.0); Hemoglobin 10.9 g/dl (14.0-18.0); Mean Corpuscular Hemoglobin 32.6 pg (25.0-34.0); Mean Corpuscular Hgb Conc 31.4 g/dL (32.0-36.0); Mean Corpuscular Volume 103.9 fL (80.0-100.0); Platelet Count 158 K/uL (130-400); RDW Coefficient of Variation 15.1 % (11.5-14.5); RDW Standard Deviation 58.1 fL (36.4-46.3); Red Blood Count 3.34 M/uL (4.70-6.10); White Blood Count 0.75 K/ul (4.8-10.8)
[2023-09-25] MEDS: EPINEPHrine/NSS 4 MG/254 ML BAG IV SCH ×3 (01:04→06:21)
[2023-09-25] MEDS ORDERED: STAT IV/IM STA (01:06)
[2023-09-25 01:18] LABS: ALC (manual) 0.29 K/uL (1.2-3.4); ANC (manual) 0.14 K/uL (1.4-6.5); Eosinophils # (manual) 0.02 K/uL (0-0.50); Eosinophils % (manual) 3 %; Lymphocytes # (manual) 0.29 K/uL (1.2-3.4); Lymphocytes % (manual) 39 %; Metamyelocytes # (manual) 0.16 K/uL (0-0); Metamyelocytes % (manual) 21 %; Monocytes # (manual) 0.05 K/uL (0.11-0.59); Monocytes % (manual) 6 %; Myelocytes # (manual) 0.09 K/uL (0-0); Myelocytes % (manual) 12 %; Neutrophils # (manual) 0.14 K/uL (1.40-6.50); Neutrophils % (manual) 19 %
[2023-09-25 01:20] LABS: Dohle Bodies 1+; Echinocytes 1+
[2023-09-25] MEDS: MAGNESIUM SULFATE / D5W 1 GM/100 ML BAG IV SCH ×2 (01:34→04:19)
[2023-09-25] MEDS: SODIUM CHLORIDE 0.9% IV SCH ×3 (01:37→08:13)
[2023-09-25] MEDS: PHENYLEPHRINE HCL IV SCH ×3 (01:37→08:13)
[2023-09-25] MEDS: SODIUM BICARBONATE 8.4% 150 MEQ in DEXTROSE 5% 1,000 ML IV SCH ×2 (01:37→08:16)
[2023-09-25] MEDS ORDERED: VECURONIUM BROMIDE 10 MG VIAL IV ONE (02:18)
[2023-09-25] MEDS ORDERED: SODIUM BICARB 8.4% INJ 50 MEQ/50 ML SYR IV ONE (02:18)
[2023-09-25 02:22] LABS: iSTAT Art Bld Gas pCO2 Correct 89 mmHg (35-46); iSTAT Art Bld Gas pH Corrected 7.015 (7.35-7.45); iSTAT Arterial Blood Gas HCO3 23 meg/L (19-24); iSTAT Arterial Blood Gas pCO2 90 mmHg (35-46); iSTAT Arterial Blood Gas pH 7.01 (7.35-7.45); iSTAT Arterial Blood Gas pO2 154 mmHg (80-95); iSTAT Arterial Blood Gas pO2 C 153; iSTAT Carbon Dioxide 26 mmol/L (24-31); iSTAT FiO2 100 %; iSTAT Hematocrit 32 % (42-52); iSTAT Hemoglobin 10.9 g/dl (14.0-18.0); iSTAT Potassium 4.9 mmol/L (3.3-5.0); iSTAT Site Art Line; iSTAT Sodium 137 mmol/L (135-144)
[2023-09-25] MEDS ORDERED: ALBUT/IPRATROP 3MG/0.5MG NEB 3 ML VIAL NEB STA (02:28)
[2023-09-25] MEDS ORDERED: SODIUM BICARB 8.4% INJ 50 MEQ/50 ML SYR IV STA (02:28)
[2023-09-25] MEDS ORDERED: VECURONIUM BROMIDE 10 MG VIAL IV STA (02:28)
[2023-09-25] MEDS: LEVALBUTEROL 1.25 MG/3 ML NEB NEB SCH ×2 (02:37→08:29)
[2023-09-25 03:18] LABS: iSTAT Art Bld Gas pCO2 Correct 79 mmHg (35-46); iSTAT Art Bld Gas pH Corrected 7.087 (7.35-7.45); iSTAT Arterial Blood Gas HCO3 24 meg/L (19-24); iSTAT Arterial Blood Gas pCO2 81 mmHg (35-46); iSTAT Arterial Blood Gas pH 7.08 (7.35-7.45); iSTAT Arterial Blood Gas pO2 67 mmHg (80-95); iSTAT Arterial Blood Gas pO2 C 64; iSTAT Carbon Dioxide 26 mmol/L (24-31); iSTAT FiO2 70 %; iSTAT Hematocrit 32 % (42-52); iSTAT Hemoglobin 10.9 g/dl (14.0-18.0); iSTAT Potassium 4.3 mmol/L (3.3-5.0); iSTAT Site Art Line; iSTAT Sodium 139 mmol/L (135-144)
[2023-09-25] MEDS: metroNIDAZOLE 500 MG/100 ML BAG IV SCH (04:22)
[2023-09-25 04:45] LABS: Hematocrit (blood only) 34.3 % (42.0-52.0); Hemoglobin 11.2 g/dl (14.0-18.0); Mean Corpuscular Hemoglobin 33.9 pg (25.0-34.0); Mean Corpuscular Hgb Conc 32.7 g/dL (32.0-36.0); Mean Corpuscular Volume 103.9 fL (80.0-100.0); Mean Platelet Volume 10.3 fL (9.4-12.4); Platelet Count 126 K/uL (130-400); RDW Coefficient of Variation 15.1 % (11.5-14.5); RDW Standard Deviation 58.1 fL (36.4-46.3); White Blood Count 0.75 K/ul (4.8-10.8)
[2023-09-25 04:59] LABS: Albumin Globulin Ratio 1.4 (0.9-2); Albumin Level 2.3 gm/dl (3.4-5.0); BUN Creatinine Ratio 17.6 (10-20); Bilirubin,Total 0.5 mg/dl (0.2-1.0); Calcium 7.2 mg/dl (8.6-10.3); Creatinine Clr Calc Pharmacy 20.7 ml/min; Est GFR (African American) 29.8 ml/min; Est GFR (Non-African American) 25.7 ml/min; Globulin 1.7 gm/dl (2.5-4.0); Magnesium 3.5 mg/dl (1.7-2.4); Phosphorus 10.1 mg/dl (2.5-4.9); Potassium 4.3 mmol/L (3.5-5.1)
[2023-09-25 05:43] VITALS: BP 121/83; TEMP 97.7
--- NOTE | 2023-09-25 07:16 | Hospitalist Progress Note ---
Date of Service September 25, 2023 Assessment & Plan (1) Intractable nausea and vomiting: Plan: #Acute Hypoxic Respiratory Failure Etiology unclear. CXR without consolidation or signs of congestion. Fluid status appears euvolemic. Possibly in the setting of increase abdominal distension and subsequent shallow breathing. Does not appear to be medication induced hypoventilation as patient tachypneic. Improvement with BiPAP, but patient did not tolerate. ABG - pH 7.49 pCO2 37 HCO3 28, uncompensated metabolic alkalosis. CT Chest without PE, likely aspiration pneumonia vs multifocal pneumonia. Respiratory status continues to decline with concern for fatigue with pending failure. Discussed code status with patient and daughter. Patient amenable to intubation if indicated. Surgery aware of change in clinical status. Pulm consult - appreciate recs. Urgent pulmonology consult - appreciate input. Hypertonic saline neb, IS, flutter valve #Partial SBO #Abdominal Pain #Nausea and Vomiting No SBO reported on previous CT A&P. Now partial SBO evident on CT. Patient NPO. Recommend NGT placement. Antiemetics and pain medications as needed. Miralax and Senna for bowel regimen. Patient dislodged NGT with forceful emesis. Patient would prefer surgery over repeat NGT placement. Declined NGT. Miralax and Senna PEDRO Compazine 5 mg IV Q6H PRN Protonix 40 mg PO daily Morphine as needed for pain Surg on board - appreciate recs #HLD Chronic. Stable. Continue simvastatin 80 mg p.o. daily #HTN Chronic. Stable. Continue amlodipine 2.5 mg p.o. daily #CAD Chronic. Continue aspirin 81 mg p.o. daily Code status: full DVT ppx: Will start SQ heparin after r/o PE HORTENSIA: NPO, Dispo: med/surg Family updated: Aleah 09/24 daughter, she is on her way from [facility] (2) Acute hypoxemic respiratory failure: (3) Hyperlipidemia: (4) Hypertension: (5) CAD (coronary artery disease): (6) Intractable abdominal pain: (7) Small bowel obstruction, partial: Admission and Anticipated Discharge Date Admission Date: September 22, 2023 Physical Exam Physical Exam: General: patient in severe respiratory distress, retractions present, fearful appearing, tiring from a respiratory status HEENT: PERRL, EOMI, anicteric sclera, conjunctiva without injection Heart: +S1/S2, regular, no m/r/g Abd: soft, diffusely tender, significant distension Neuro: alert and oriented Results & Data Results & Data Vital Signs (Past 12 Hours) Vital Signs Temp Pulse Pulse Pulse Resp BP BP 09/25/23 05:10 132 H 32 H 09/25/23 05:00 137 H 32 H 09/25/23 04:50 135 H 32 H 09/25/23 04:40 136 H 32 H 09/25/23 04:30 137 H 32 H 09/25/23 04:20 136 H 32 H 09/25/23 04:10 136 H 32 H 09/25/23 04:00 136 H 32 H 09/25/23 03:50 136 H 32 H 09/25/23 03:47 135 H 32 H 09/25/23 03:40 136 H 32 H 09/25/23 03:30 136 H 32 H 09/25/23 03:22 32 H 09/25/23 03:20 136 H 32 H 09/25/23 03:17 137 H 32 H 09/25/23 03:10 137 H 32 H 09/25/23 03:00 136 H 32 H 09/25/23 03:00 09/25/23 02:50 136 H 32 H 09/25/23 02:40 137 H 32 H 09/25/23 02:38 136 H 136 H 32 H 09/25/23 02:30 135 H 32 H 09/25/23 02:30 135 H 32 H 09/25/23 02:20 142 H 30 H 09/25/23 02:10 142 H 30 H 09/25/23 02:00 141 H 30 H 09/25/23 01:50 141 H 30 H 09/25/23 01:40 140 H 30 H 09/25/23 01:32 124/66 09/25/23 01:32 140 H 30 H 09/25/23 01:30 139 H 30 H 09/25/23 01:20 139 H 30 H 09/25/23 01:17 139 H 30 H 09/25/23 01:10 139 H 30 H 09/25/23 01:02 139 H 30 H 09/25/23 01:00 138 H 30 H 09/25/23 00:50 138 H 30 H 09/25/23 00:40 136 H 26 H 09/25/23 00:30 135 H 30 H 09/25/23 00:20 135 H 30 H 09/25/23 00:10 135 H 26 H 09/25/23 00:00 136 H 30 H 09/24/23 23:50 138 H 30 H 09/24/23 23:40 140 H 26 H 09/24/23 23:30 139 H 30 H 09/24/23 23:20 141 H 30 H 09/24/23 23:10 142 H 26 H 09/24/23 23:02 142 H 31 H 09/24/23 23:00 142 H 29 H 09/24/23 22:50 141 H 29 H 09/24/23 22:40 139 H 26 H 09/24/23 22:30 145 H 31 H 09/24/23 22:20 148 H 33 H 09/24/23 22:10 28 H 09/24/23 22:00 152 H 34 H 09/24/23 22:00 26 H 09/24/23 21:50 156 H 29 H 09/24/23 21:40 157 H 32 H 09/24/23 21:31 158 H 32 H 09/24/23 21:30 158 H 33 H 09/24/23 21:24 158 H 31 H 09/24/23 21:20 159 H 33 H 09/24/23 21:16 160 H 31 H 09/24/23 21:10 162 H 29 H 09/24/23 21:00 165 H 30 H 09/24/23 20:59 165 H 29 H 09/24/23 20:50 169 H 28 H 09/24/23 20:49 168 H 22 09/24/23 20:42 102/71 09/24/23 20:42 174 H 25 H 09/24/23 20:40 176 H 24 09/24/23 20:40 92/62 L 09/24/23 20:38 176 H 23 09/24/23 20:38 84/65 L 09/24/23 20:34 178 H 24 09/24/23 20:34 151/87 H 09/24/23 20:30 112 H 19 09/24/23 20:25 143 H 26 H 09/24/23 20:25 52/35 L 09/24/23 20:24 56/38 L 09/24/23 20:24 148 H 28 H 09/24/23 20:22 156 H 28 H 09/24/23 20:22 63/40 L 09/24/23 20:20 160 H 22 09/24/23 20:20 69/51 L 09/24/23 20:19 162 H 27 H 09/24/23 20:19 83/52 L 09/24/23 19:50 36.5 C 173 H 22 121/83 09/24/23 19:45 176 H 22 130/81 09/24/23 19:40 182 H 22 199/110 H 09/24/23 19:37 09/24/23 19:34 64 20 09/24/23 19:23 125 H 40 H 85/53 L Pulse Ox O2 Del Method FiO2 09/25/23 05:10 09/25/23 05:00 09/25/23 04:50 09/25/23 04:40 09/25/23 04:30 09/25/23 04:20 09/25/23 04:10 09/25/23 04:00 09/25/23 03:50 09/25/23 03:47 09/25/23 03:40 09/25/23 03:30 09/25/23 03:22 100 09/25/23 03:20 09/25/23 03:17 09/25/23 03:10 09/25/23 03:00 09/25/23 03:00 Mechanical Vent 80 09/25/23 02:50 09/25/23 02:40 09/25/23 02:38 Mechanical Vent 70 09/25/23 02:30 09/25/23 02:30 70 09/25/23 02:20 09/25/23 02:10 09/25/23 02:00 09/25/23 01:50 09/25/23 01:40 09/25/23 01:32 09/25/23 01:32 09/25/23 01:30 09/25/23 01:20 09/25/23 01:17 09/25/23 01:10 09/25/23 01:02 09/25/23 01:00 09/25/23 00:50 09/25/23 00:40 09/25/23 00:30 09/25/23 00:20 52 L 09/25/23 00:10 60 L 09/25/23 00:00 61 L Mechanical Vent 09/24/23 23:50 86 L 09/24/23 23:40 86 L 09/24/23 23:30 91 Mechanical Vent 09/24/23 23:20 91 09/24/23 23:10 95 09/24/23 23:02 93 100 09/24/23 23:00 94 Mechanical Vent 09/24/23 22:50 86 L 09/24/23 22:40 88 L 09/24/23 22:30 91 09/24/23 22:20 93 09/24/23 22:10 94 09/24/23 22:00 97 Mechanical Vent 09/24/23 22:00 60 09/24/23 21:50 98 09/24/23 21:40 48 L 09/24/23 21:31 53 L 09/24/23 21:30 59 L Mechanical Vent 09/24/23 21:24 70 L 09/24/23 21:20 09/24/23 21:16 09/24/23 21:10 09/24/23 21:00 Mechanical Vent 09/24/23 20:59 09/24/23 20:50 09/24/23 20:49 100 09/24/23 20:42 09/24/23 20:42 09/24/23 20:40 09/24/23 20:40 09/24/23 20:38 09/24/23 20:38 09/24/23 20:34 09/24/23 20:34 09/24/23 20:30 78 L 09/24/23 20:25 34 L 09/24/23 20:25 09/24/23 20:24 09/24/23 20:24 41 L 09/24/23 20:22 09/24/23 20:22 09/24/23 20:20 09/24/23 20:20 09/24/23 20:19 09/24/23 20:19 Mechanical Vent 09/24/23 19:50 09/24/23 19:45 09/24/23 19:40 09/24/23 19:37 Mechanical Vent 100 09/24/23 19:34 64 L Mechanical Vent 09/24/23 19:23 81 L High Flow Nasal Cannula (5) CAD (coronary artery disease) Coronary Disease-Associated Artery/Lesion type: unspecified vessel or lesion type [place] vs. transplanted heart: [place] heart Associated angina: without angina Qualified Code(s): I25.10 - Atherosclerotic heart disease of [place] coronary artery without angina pectoris
[2023-09-25] MEDS: NOREPINEPHRINE/D5W 4 MG/250 ML PLCT IV SCH ×2 (07:22→08:16)
--- NOTE | 2023-09-25 07:27 | XRay Report ---
XR chest 1V portable HISTORY: intubation COMPARISON: Chest 09/24/2023. FINDINGS: Endotracheal tube terminates 5.7 cm from the gil. Emphysema is again noted. No pneumotho rax. Trace bilateral pleural effusions. Patchy bibasilar densities have progressed. The heart is norm al in size. IMPRESSION: 1. The endotracheal tube terminates 5.7 cm from the gil. 2. Patchy bibasilar densities have progressed and may represent a pneumonia. ACT 112: Negative or not required by law. Electronically signed by: Tomas Wang M.D. 09/25/2023 7:26 AM
--- NOTE | 2023-09-25 07:32 | XRay Report ---
XR chest 1V not portable HISTORY: Central venous line insertion. COMPARISON: Chest 09/24/2023. FINDINGS: Endotracheal tube terminates 5.4 cm from the gli. Right jugular central venous catheter terminates at the right brachiocephalic/SVC junction. No pneumothorax. The heart is normal in size. N asogastric tube terminates in the proximal stomach. The fenestrated line is at the distal esophagus. This should be advanced by approximately 5 to 10 cm. Patchy bibasilar densities persist. Emphysema ag ain noted. IMPRESSION: 1. The right jugular central venous catheter terminates at the brachiocephalic/SVC junction. No pneum othorax. 2. Nasogastric tube terminates in the proximal stomach. This should be advanced by proximal a 5 to 10 cm. 3. Endotracheal tube appears in good position. 4. Patchy bibasilar densities persist. ACT 112: Negative or not required by law. Electronically signed by: Tomas Wang M.D. 09/25/2023 7:31 AM
[2023-09-25] MEDS ORDERED: Nursing to Pharmacy Communication SCH (07:45)
[2023-09-25 07:56] LABS: iSTAT Art Bld Gas pCO2 Correct 71 mmHg (35-46); iSTAT Art Bld Gas pH Corrected 7.113 (7.35-7.45); iSTAT Arterial Blood Gas HCO3 23 meg/L (19-24); iSTAT Arterial Blood Gas pCO2 72 mmHg (35-46); iSTAT Arterial Blood Gas pH 7.11 (7.35-7.45); iSTAT Arterial Blood Gas pO2 110 mmHg (80-95); iSTAT Arterial Blood Gas pO2 C 109; iSTAT Carbon Dioxide 25 mmol/L (24-31); iSTAT FiO2 100 %; iSTAT Hematocrit 32 % (42-52); iSTAT Hemoglobin 10.9 g/dl (14.0-18.0); iSTAT Potassium 4.6 mmol/L (3.3-5.0); iSTAT Site Art Line; iSTAT Sodium 137 mmol/L (135-144)
--- NOTE | 2023-09-25 08:00 | XRay Report ---
XR chest 1V portable HISTORY: Respiratory failure. COMPARISON: Chest 09/24/2023. FINDINGS: Endotracheal tube terminates 3.7 cm from the gil. A right jugular central venous cathete r terminates at the brachiocephalic/SVC junction. No pneumothorax. Emphysema is again noted. Nasogast aman tube terminates below the diaphragm. Trace bilateral pleural effusions and patchy bibasilar densi ties persist. IMPRESSION: 1. Satisfactory support line placement. 2. Trace bilateral pleural effusions and bibasilar densities persist. This likely represents a pneumo pascual. ACT 112: Negative or not required by law. Electronically signed by: Tomas Wang M.D. 09/25/2023 7:58 AM
[2023-09-25] MEDS: PANTOprazole 40 MG in SYRINGE 0 ML IV SCH (08:15)
[2023-09-25] MEDS: HEPARIN SOD 5,000 UNIT/0.5 ML VIAL SQ SCH (08:15)
[2023-09-25] MEDS: ASPIRIN 81 MG ECTAB PO SCH (08:15)
[2023-09-25] MEDS: ESCITALOPRAM OXALATE 20 MG TAB PO SCH (08:15)
[2023-09-25] MEDS: SIMVASTATIN 80 MG TAB PO SCH (08:16)
--- NOTE | 2023-09-25 08:27 | Electrocardiogram Report ---
Test Reason : Blood Pressure : / mmHG Vent. Rate : 154 BPM Atrial Rate : 087 BPM P-R Int : 000 ms QRS Dur : 086 ms QT Int : 324 ms P-R-T Axes : 000 087 088 degrees QTc Int : 518 ms Supraventricular tachycardia with occasional Premature ventricular complexes Nonspecific T wave abnormality Abnormal ECG When compared with ECG of 24-SEP-2023 08:33, Vent. rate has increased BY 65 BPM Supraventricular tachycardia now present Confirmed by Lui Tolentino ([id number]) on 09/25/2023 8:27:05 AM Referred By: REFERRED SELF Confirmed By:Lui Tolentino
--- NOTE | 2023-09-25 08:28 | Intensivist Progress Note ---
Date of Service September 25, 2023 Assessment & Plan (1) Small bowel obstruction, partial: (2) Acute hypoxemic respiratory failure: (3) CAD (coronary artery disease): (4) Peripheral artery disease: (5) Pulmonary nodules: Plan 73 year old male active smoker with COPD, CAD, PAD presents with partial small bowel obstruction. Acute hypoxic respiratory failure due to aspiration pneumonia in setting of advanced COPD/emphysema. s/p cardiac arrest in septic and cardiogenic shock with multi-organ failure. He has failed to respond despite maximal aggressive therapy. I discussed with the daughter this morning at the bedside that his prognosis is grave and is imminent. Further medical treatments would be futile. She agreed to switch goals of care to comfort and to withdraw all other futile therapeutic measures. Discussed with RN. Total CC time spent 37 minutes. Admission and Anticipated Discharge Date Admission Date: September 22, 2023 Subjective hypotensive maxed out on eduardo, levo, and epi. respiratory and metabolic acidosis. Physical Exam Constitutional: + ill appearing, + thin and + mechanical ly ventilated Respiratory: Auscultation: lungs clear to auscultation bilaterally and + diminished lung sounds Cardiovascular: Rate/Rhythm: regular rate and regular rhythm Gastrointestinal (Abdomen): Inspection/Auscultation: abdomen normal to inspection and + hypoactive bowel sounds Percussion/Palpation: abdomen nontender Skin: + mottling Neurologic: on sedation Results & Data Results & Data Vital Signs (Past 12 Hours) Vital Signs Pulse Pulse Pulse Resp BP Pulse Ox O2 Del Method 09/25/23 05:10 132 H 32 H 09/25/23 05:00 137 H 32 H 09/25/23 04:50 135 H 32 H 09/25/23 04:40 136 H 32 H 09/25/23 04:30 137 H 32 H 09/25/23 04:20 136 H 32 H 09/25/23 04:10 136 H 32 H 09/25/23 04:00 136 H 32 H 09/25/23 03:50 136 H 32 H 09/25/23 03:47 135 H 32 H 09/25/23 03:40 136 H 32 H 09/25/23 03:30 136 H 32 H 09/25/23 03:22 32 H 09/25/23 03:20 136 H 32 H 09/25/23 03:17 137 H 32 H 09/25/23 03:10 137 H 32 H 09/25/23 03:00 136 H 32 H 09/25/23 03:00 Mechanical Vent 09/25/23 02:50 136 H 32 H 09/25/23 02:40 137 H 32 H 09/25/23 02:38 136 H 136 H 32 H Mechanical Vent 09/25/23 02:30 135 H 32 H 09/25/23 02:30 135 H 32 H 09/25/23 02:20 142 H 30 H 09/25/23 02:10 142 H 30 H 09/25/23 02:00 141 H 30 H 09/25/23 01:50 141 H 30 H 09/25/23 01:40 140 H 30 H 09/25/23 01:32 124/66 09/25/23 01:32 140 H 30 H 09/25/23 01:30 139 H 30 H 09/25/23 01:20 139 H 30 H 09/25/23 01:17 139 H 30 H 09/25/23 01:10 139 H 30 H 09/25/23 01:02 139 H 30 H 09/25/23 01:00 138 H 30 H 09/25/23 00:50 138 H 30 H 09/25/23 00:40 136 H 26 H 09/25/23 00:30 135 H 30 H 09/25/23 00:20 135 H 30 H 52 L 09/25/23 00:10 135 H 26 H 60 L 09/25/23 00:00 136 H 30 H 61 L Mechanical Vent 09/24/23 23:50 138 H 30 H 86 L 09/24/23 23:40 140 H 26 H 86 L 09/24/23 23:30 139 H 30 H 91 Mechanical Vent 09/24/23 23:20 141 H 30 H 91 09/24/23 23:10 142 H 26 H 95 09/24/23 23:02 142 H 31 H 93 09/24/23 23:00 142 H 29 H 94 Mechanical Vent 09/24/23 22:50 141 H 29 H 86 L 09/24/23 22:40 139 H 26 H 88 L 09/24/23 22:30 145 H 31 H 91 09/24/23 22:20 148 H 33 H 93 09/24/23 22:10 28 H 94 09/24/23 22:00 152 H 34 H 97 Mechanical Vent 09/24/23 22:00 26 H 09/24/23 21:50 156 H 29 H 98 09/24/23 21:40 157 H 32 H 48 L 09/24/23 21:31 158 H 32 H 53 L 09/24/23 21:30 158 H 33 H 59 L Mechanical Vent 09/24/23 21:24 158 H 31 H 70 L 09/24/23 21:20 159 H 33 H 09/24/23 21:16 160 H 31 H 09/24/23 21:10 162 H 29 H 09/24/23 21:00 165 H 30 H Mechanical Vent 09/24/23 20:59 165 H 29 H 09/24/23 20:50 169 H 28 H 09/24/23 20:49 168 H 22 09/24/23 20:42 102/71 09/24/23 20:42 174 H 25 H 09/24/23 20:40 176 H 24 09/24/23 20:40 92/62 L 09/24/23 20:38 176 H 23 09/24/23 20:38 84/65 L 09/24/23 20:34 178 H 24 09/24/23 20:34 151/87 H 09/24/23 20:30 112 H 19 78 L 09/24/23 20:25 143 H 26 H 34 L 09/24/23 20:25 52/35 L 09/24/23 20:24 56/38 L 09/24/23 20:24 148 H 28 H 41 L 09/24/23 20:22 156 H 28 H 09/24/23 20:22 63/40 L FiO2 09/25/23 05:10 09/25/23 05:00 09/25/23 04:50 09/25/23 04:40 09/25/23 04:30 09/25/23 04:20 09/25/23 04:10 09/25/23 04:00 09/25/23 03:50 09/25/23 03:47 09/25/23 03:40 09/25/23 03:30 09/25/23 03:22 100 09/25/23 03:20 09/25/23 03:17 09/25/23 03:10 09/25/23 03:00 09/25/23 03:00 80 09/25/23 02:50 09/25/23 02:40 09/25/23 02:38 70 09/25/23 02:30 09/25/23 02:30 70 09/25/23 02:20 09/25/23 02:10 09/25/23 02:00 09/25/23 01:50 09/25/23 01:40 09/25/23 01:32 09/25/23 01:32 09/25/23 01:30 09/25/23 01:20 09/25/23 01:17 09/25/23 01:10 09/25/23 01:02 09/25/23 01:00 09/25/23 00:50 09/25/23 00:40 09/25/23 00:30 09/25/23 00:20 09/25/23 00:10 09/25/23 00:00 09/24/23 23:50 09/24/23 23:40 09/24/23 23:30 09/24/23 23:20 09/24/23 23:10 09/24/23 23:02 100 09/24/23 23:00 09/24/23 22:50 09/24/23 22:40 09/24/23 22:30 09/24/23 22:20 09/24/23 22:10 09/24/23 22:00 09/24/23 22:00 60 09/24/23 21:50 09/24/23 21:40 09/24/23 21:31 09/24/23 21:30 09/24/23 21:24 09/24/23 21:20 09/24/23 21:16 09/24/23 21:10 09/24/23 21:00 09/24/23 20:59 09/24/23 20:50 09/24/23 20:49 100 09/24/23 20:42 09/24/23 20:42 09/24/23 20:40 09/24/23 20:40 09/24/23 20:38 09/24/23 20:38 09/24/23 20:34 09/24/23 20:34 09/24/23 20:30 09/24/23 20:25 09/24/23 20:25 11/16/23 20:24 09/24/23 20:24 09/24/23 20:22 09/24/23 20:22 PG Care Time/CCT Total # of Minutes Spent Total Time Spent with Patient: Total time spent is greater than 50% in coordination of care (as documented) at patient's floor/unit and/or counseling patient: Coding Level of Care Code 26177 CRITICAL CARE 1ST 30-74M Diagnoses Small bowel obstruction, partial K56.600 Acute hypoxemic respiratory failure J96.01 Coronary artery disease involving [place] heart without angina pectoris, unspecified vessel or lesion type I25.10 Coronary Disease-Associated Artery/Lesion type: unspecified vessel or lesion type [place] vs. transplanted heart: [place] heart Associated angina: without angina Peripheral artery disease I73.9 Pulmonary nodules R91.8 (3) CAD (coronary artery disease) Coronary Disease-Associated Artery/Lesion type: unspecified vessel or lesion type [place] vs. transplanted heart: [place] heart Associated angina: without angina Qualified Code(s): I25.10 - Atherosclerotic heart disease of [place] coronary artery without angina pectoris
[2023-09-25] MEDS: SODIUM CHLOR 7% 4 ML NEB NEB SCH (08:29)
[2023-09-25 08:32] VITALS: O2SAT 96
--- NOTE | 2023-09-25 08:39 | Death Pronouncement Note ---
Date of Service September 25, 2023 Pronouncement Note Admission Date Admission Date: September 22, 2023 Contributing Factors (1) Small bowel obstruction, partial: (2) Acute hypoxemic respiratory failure: (3) CAD (coronary artery disease): (4) Peripheral artery disease: (5) Pulmonary nodules: Hospital Course Hospital Course: Pupils fixed and dilated. On auscultation heart and breath sounds were absent. Rhythm tracing showed flat line. Patient was pronounced at 8:26am. Additional Data Attending physician: Tatiana Mi MD Coding Level of Care Code None Diagnoses Small bowel obstruction, partial K56.600 Acute hypoxemic respiratory failure J96.01 Coronary artery disease involving [place] heart without angina pectoris, unspecified vessel or lesion type I25.10 Coronary Disease-Associated Artery/Lesion type: unspecified vessel or lesion type [place] vs. transplanted heart: [place] heart Associated angina: without angina Peripheral artery disease I73.9 Pulmonary nodules R91.8
[2023-09-25 08:59] VITALS: PULSE 0; RESP 0
[2023-09-25] MEDS ORDERED: methylPREDNISolone 40 MG in SYRINGE 0 ML IV SCH (09:00)
[2023-09-25] MEDS ORDERED: Max Conc; 16 MG in 250mL for HYPOTENSION IV SCH (09:00)
--- NOTE | 2023-09-25 09:14 | Discharge Summary ---
Date of Service September 25, 2023 Admission HPI Per Admitting Provider Tr Colvin is a 73-year-old male with history of hypertension, hyperlipidemia, GERD presenting with acute onset of abdominal pain and vomiting. Patient reports that he woke up this morning at 0800 and felt his usual self. He took his morning medications. Around 10:00 he developed acute onset abdominal pain mostly in the left mid abdomen as well as nausea and multiple episodes of vomiting. He called the nurse line and was instructed to come to the ER. He reports vomiting at least 15 times. Patient reports some subjective fevers and chills as well as nausea, vomiting, abdominal pain and p.o. intolerance. Unable to tolerate p.o. intake. Is passing flatus. Had a normal bowel movement this morning. Denies abdominal distention Admission Exam Per Admitting Provider General: patient resting comfortably, NAD, non-toxic in appearance, AA&O x 4 Skin: warm, dry, intact, no rashes or lesions HEENT: NC/AT, PERRL, EOMI, anicteric sclera, conjunctiva without injection, external ear normal to inspection and nontender, nares patent, moist mucus membranes, dentition intact, no oropharyngeal lesions, neck supple, trachea midline, no LAD, no thyromegaly, no JVD Heart: +S1/S2, regular, no m/r/g Lungs: equal air entry bilaterally, no rales/rhonchi/wheezes Abd: Hyperactive bowel sounds, abdomen soft, nondistended, diffusely tender most in left mid abdomen, no rebound/guarding/peritonitis Ext: warm, 2+ pulses in UE/LE bilaterally, no clubbing/cyanosis or edema Neuro: nonfocal, patient AA&O x 4, speech intact, no facial droop, moving all extremities on command with equal strength 5/5 Principal Diagnosis acute hypoxic respiratory failure Discharge Exam See note Discharge Data Allergies Allergy/AdvReac Type Severity Reaction Status Date / Time Sulfa (Sulfonamide Allergy Intermediate RASH/HIVES Verified 07/28/23 11:49 Antibiotics) codeine AdvReac Mild UPSETS Verified 07/28/23 11:49 STOMACH - NAUSEA wool AdvReac Mild ITCHING Verified 07/28/23 11:49 Consultations 09/22/23 01:23 ED Decision to Admit Stat 09/24/23 08:09 Consult General Surgery Routine 09/24/23 16:24 Consult Pulmonology Stat 09/24/23 20:47 Consult Budget Assistant Routine 09/24/23 22:15 Consult Urology Routine Ordered Studies Abdomen/Pelvis CT 09/21/23 18:28 FINDINGS: Lung bases: Atelectasis is at the LEFT lung base. ABDOMEN: Liver: Unremarkable. No mass. Gallbladder and bile ducts: Unremarkable. No calcified stones. No ductal dilation. Pancreas: Unremarkable. No mass. No ductal dilation. Spleen: Unremarkable. No splenomegaly. Adrenals: Unremarkable. No mass. Kidneys and ureters: Renal cysts measuring up to 1.9 cm in the RIGHT kidney. No hydronephrosis. Stomach and bowel: Dilated small bowel measuring up to 3 cm, concerning for enteritis/ileus. No definite bowel obstruction. Diverticulosis, without acute diverticulitis. No small bowel obstruction. No free intraperitoneal air. PELVIS: Appendix: No findings to suggest acute appendicitis. Bladder: Unremarkable. No mass. Reproductive: Unremarkable as visualized. ABDOMEN and PELVIS: Intraperitoneal space: Unremarkable. No free air. No significant fluid collection. Bones/joints: Degenerative changes of the spine. LEFT hip ORIF. Soft tissues: Unremarkable. Vasculature: Atherosclerotic changes of the aorta. Postsurgical changes to the aorta with LEFT common iliac stent graft. No abdominal aortic aneurysm. Lymph nodes: Unremarkable. No enlarged lymph nodes. IMPRESSION: 1. Dilated small bowel measuring up to 3 cm, concerning for enteritis/ileus. No definite bowel obstruction. 2. Diverticulosis, without acute diverticulitis. No small bowel obstruction. No free intraperitoneal air. Chest X-Ray 09/21/23 18:28 FINDINGS: Cardiomediastinal and hilar silhouettes are within normal limits. Emphysema with chronic interstitial coarsening. No pneumothorax, pleural effusion, airspace consolidation or pulmonary edema. Mild lumbar levoscoliosis. Degenerative changes of the shoulders and spine. IMPRESSION: Emphysema without acute process of the chest. KUB X-Ray 09/22/23 09:00 FINDINGS: Nonobstructive bowel gas pattern. Air-filled loops of small bowel are noted with a single mildly dilated loops in the left midabdomen measuring 3.9 cm. Contrast noted within the urinary bladder lumen. Mild to moderate colonic fecal retention. Left iliac stent graft. Small bilateral renal calculi redemonstrated measuring up to approximately 4 mm without nephrolithiasis. No pneumoperitoneum or pneumatosis. Lumbar levoscoliosis. Partially imaged orthopedic hardware at the left proximal femur. No fracture. IMPRESSION: 1. No evidence of a high-grade small bowel obstruction. Mildly dilated loops of small bowel in the lower abdomen may represent an enteritis versus low-grade small bowel obstruction. Continued follow-up recommended. 2. Bilateral nephrolithiasis. Abdomen CT 09/23/23 15:22 FINDINGS: Lower chest: Bronchial wall thickening and emphysema are seen. Liver: Unremarkable. No focal lesions are seen. Gallbladder and biliary tree: No calcified gallstones. Normal caliber wall. No intra- or extrahepatic biliary ductal dilation. Pancreas: Unremarkable, no focal lesions. Spleen: Unrearkable. Adrenals: Unremarkable. Kidneys and ureters: Right renal cyst is seen. Bowel: Air-fluid levels and distention of the small bowel measuring up to 41 mm in diameter. Moderate stool burden is seen in the colon where visualized. No pneumatosis intestinalis is seen. Lymph nodes Retroperitoneal: Unremarkable. Mesenteric: Unremarkable. Peritoneum: Small ascites is seen. Vessels: Atherosclerotic calcifications are seen. Abdominal wall: Unremarkable. Bones: Degenerative changes in the visualized spine. Old fracture of the right 11th rib. IMPRESSION: Interval development of small bowel obstruction, likely partial/early. No pneumatosis. Mild ascites is noted. Chest X-Ray 09/24/23 11:56 FINDINGS: No lines and tubes are seen. Calcified aortic knob is seen. The lungs are clear. No evidence of pleural effusion or pneumothorax. IMPRESSION: No acute abnormalities and in particular no radiographic evidence of pneumonia. Chest CTA 09/24/23 14:21 FINDINGS: No pulmonary emboli are identified although the segmental and sub segmental pulmonary arteries are suboptimally assessed due to significant respiratory motion. There is no pericardial effusion. Moderate coronary artery calcification is present. There is no pneumothorax. Trace right pleural effusion is noted. Lungs are suboptimally assessed due to respiratory motion. Emphysema is again noted. There has been interval development of moderate alveolar opacities within the right middle lobe, lower lobe and lingula since abdominal CT of September 23, 2023. Left basilar consolidation is now present. There are secretions within the airways. No central obstructing mass is identified. There is no pneumothorax. There is probable esophageal wall thickening with mild adjacent mediastinal edema. No pneumomediastinum is present. IMPRESSION: 1. No pulmonary emboli identified although segmental and subsegmental pulmonary arteries suboptimally assessed due to respiratory motion. 2. Interval development of moderate alveolar opacities within the lower lobes, right middle lobe and lingula as well as left basilar consolidation since abdominal CT of September 23, 2023. The findings favor aspiration. Multifocal pneumonia could appear similar. 3. Wall thickening of the mid to distal esophagus with associated mediastinal edema. No pneumomediastinum. This suggests esophagitis. 4. Emphysema. Chest X-Ray 09/24/23 19:45 IMPRESSION: 1. The endotracheal tube terminates 5.7 cm from the gil. 2. Patchy bibasilar densities have progressed and may represent a pneumonia. Chest X-Ray 09/24/23 21:22 FINDINGS: Endotracheal tube terminates 5.4 cm from the gil. Right jugular central venous catheter terminates at the right brachiocephalic/SVC junction. No pneumothorax. The heart is normal in size. Nasogastric tube terminates in the proximal stomach. The fenestrated line is at the distal esophagus. This should be advanced by approximately 5 to 10 cm. Patchy bibasilar densities persist. Emphysema again noted. IMPRESSION: 1. The right jugular central venous catheter terminates at the brachiocephalic/SVC junction. No pneumothorax. 2. Nasogastric tube terminates in the proximal stomach. This should be advanced by proximal a 5 to 10 cm. 3. Endotracheal tube appears in good position. 4. Patchy bibasilar densities persist. Chest X-Ray 09/25/23 07:00 FINDINGS: Endotracheal tube terminates 3.7 cm from the gil. A right jugular central venous catheter terminates at the brachiocephalic/SVC junction. No pneumothorax. Emphysema is again noted. Nasogastric tube terminates below the diaphragm. Trace bilateral pleural effusions and patchy bibasilar densities persist. IMPRESSION: 1. Satisfactory support line placement. 2. Trace bilateral pleural effusions and bibasilar densities persist. This likely represents a pneumonia. Hospital Course (1) Intractable nausea and vomiting: #Acute Hypoxic Respiratory Failure Etiology unclear. CXR without consolidation or signs of congestion. Fluid status appears euvolemic. Possibly in the setting of increase abdominal distension and subsequent shallow breathing. Does not appear to be medication induced hypoventilation as patient tachypneic. Improvement with BiPAP, but patient did not tolerate. ABG - pH 7.49 pCO2 37 HCO3 28, uncompensated metabolic alkalosis. CT Chest without PE, likely aspiration pneumonitis vs aspiration pneumonia vs multifocal pneumonia. Respiratory status continues to decline with concern for fatigue with pending failure. Discussed code status with patient and daughter. Patient amenable to intubation if indicated. Surgery aware of change in clinical status. Pulm consulted. Upgraded acutiy to ICU. Patient continued to decompensate overnight resulting in PEA and cardiac arrest x2 with subsequent intubation. Patient further decompensated to cardiogenic shock requiring vasopressor support. Code status was changed to DNR. Daughter Aleah, at bed side this morning decided to withdrawal care. Patient deteriorated quickly and time of was called at 08:[address] Garcia. #Partial SBO #Abdominal Pain #Nausea and Vomiting No SBO reported on previous CT A&P. Now partial SBO evident on CT. Patient NPO. Recommend NGT placement. Antiemetics and pain medications as needed. Miralax and Senna for bowel regimen. Surgery on board - conservative management for now with NGT and NPO status. Patient dislodged NGT with forceful emesis. This is the likely time of aspiration resulting in pneumonitis. Patient would prefer surgery over repeat NGT placement. Declined NGT. SBO continued to progress overnight which likely contributed to his worsening respiratory status. #HLD Chronic. Stable. Continue simvastatin 80 mg p.o. daily #HTN Chronic. Stable. Continue amlodipine 2.5 mg p.o. daily #CAD Chronic. Continue aspirin 81 mg p.o. daily (2) Acute hypoxemic respiratory failure: (3) Hyperlipidemia: (4) Hypertension: (5) CAD (coronary artery disease): (6) Intractable abdominal pain: (7) Small bowel obstruction, partial: Total Time Total Time Spent Total Time Spent (In Minutes): See attending attestation Discharge Plan Discharge Items Patient Disposition: Discharge Diagnosis: acute hypoxic respiratory failure Other Date/Time: 09/25/23 08:26 Supervising Physician Co-Signing Physician Notes Resident Physician Supervision Note: I independently interviewed and examined the patient and verified the ellis history and physical, reviewed labs and image studies and agree with resident findings and care plan. I saw patient shortly after he was extubated. He was not responsive but still had heart rate of 90s on the monitor. Admitted for abdominal pain and vomiting and noted to have dilated small bowel on CT. After conservative management, diet was advanced and his symptoms reappeared. Repeat CT showed small bowel obstruction. After vomiting episode patient started to slowly get short of breath which progressively got worse. CT scan showed significant aspiration pneumonia in right lower and middle lung. With limited lung reserve from severe copd, his prognosis was considered poor. He was intubated. He also became hypotensive. Per pulmonology - "He has failed to respond despite maximal aggressive therapy. I discussed with the daughter this morning at the bedside that his prognosis is grave and is imminent. Further medical treatments would be futile. She agreed to switch goals of care to comfort and to withdraw all other futile therapeutic measures." Patient was terminally extubated and he was pronounced at 8:26am. Resident Activity Tracking Resident Involvement: Resident Care Provided Care Provided: Adult Hospital Medicine
--- NOTE | 2023-09-25 15:31 | Electrocardiogram Report ---
Test Reason : Blood Pressure : / mmHG Vent. Rate : 089 BPM Atrial Rate : 089 BPM P-R Int : 168 ms QRS Dur : 090 ms QT Int : 476 ms P-R-T Axes : 084 086 084 degrees QTc Int : 579 ms Poor data quality, interpretation may be adversely affected Sinus rhythm with occasional Premature ventricular complexes Nonspecific ST and T wave abnormality Prolonged QT Abnormal ECG When compared with ECG of 21-SEP-2023 18:53, Premature ventricular complexes are now Present Confirmed by Lui Tolentino ([id number]) on 09/25/2023 3:31:03 PM Referred By: REFERRED SELF Confirmed By:Lui Tolentino
== END 2023-09-25 10:00 | disposition expired | DRG 388 ==
LOC: ED 18:08 → SUATTDRO 09-22 02:00 → 3W 09-22 02:00 → 2S 09-24 13:25 → 1E 09-24 18:07